=== PATIENT | female | born 1970 | race Caucasian/White ===

== ENCOUNTER 2017-08-20 16:53 | Inpatient (IN) | payer MEDICAID ==
[2017-08-20] VITALS (7 sets, daily range): BP systolic 90–106; BP diastolic 57–70; PULSE 108–122; RESP 15–20; TEMP 98–99.2; O2SAT 94–96
[~2017-08-20] VITALS: Ht 172.7 cm; Wt 56.9 kg
[~2017-08-20 16:53] MED LIST: PYRI200T4 PO; SULF1TAB47 PO
--- NOTE | 2017-08-20 17:45 | RADRPT ---
EXAM DATE/TIME: 08/20/2017 17:37 [facility] COMPARISON: No previous studies available for comparison. INDICATIONS : Palpitations. MEDICAL HISTORY : Abnormal EKG. SURGICAL HISTORY : None. ENCOUNTER: Initial ACUITY: 1 day PAIN SCORE: 06/20 LOCATION: Bilateral chest FINDINGS: There is patchy parenchymal opacity in the left mid lung as well as the right mid lung in the expecte d location of the lingula and right middle. Airspace disease is suspected. Heart size is normal. Ther e is hyperinflation. The osseous structures are intact. CONCLUSION: Lingular and right middle lobe airspace disease suspected. Daniel Rai MD on August 20, 2017 at 17:43 Board Certified Radiologist. This report was verified electronically.
[2017-08-20 18:17] LABS: AUTOMATED NEUTROPHIL # 12.8 TH/MM3 (1.8-7.7); BASOPHIL # 0.1 TH/MM3 (0-0.2); BASOPHIL % 0.4 % (0.0-2.0); EOSINOPHIL % 0.1 % (0.0-4.0); HEMATOCRIT 38.2 % (35.0-46.0); HEMOGLOBIN 13.3 GM/DL (11.6-15.3); LYMPH % 11.1 % (9.0-44.0); LYMPHOCYTE # 1.8 TH/MM3 (1.0-4.8); MEAN CELL VOLUME 102.8 FL (80.0-100.0); MEAN CORPUSCULAR HEMOGLOBIN 35.8 PG (27.0-34.0); MEAN CORPUSCULAR HGB CONC 34.8 % (32.0-36.0); MONO % 9.6 % (0.0-8.0); MONOCYTE # 1.6 TH/MM3 (0-0.9); NEUT % 78.8 % (16.0-70.0); PLATELET COUNT 209 TH/MM3 (150-450); RED BLOOD COUNT 3.71 MIL/MM3 (4.00-5.30); RED CELL DISTRIBUTION WIDTH 15.4 % (11.6-17.2); WHITE BLOOD COUNT 16.3 TH/MM3 (4.0-11.0)
[2017-08-20 18:26] LABS: INTERNATIONAL NORMALIZED RATIO 1.4 RATIO
[2017-08-20 19:13] LABS: BICARBONATE 27.6 MEQ/L (21.0-32.0); BLOOD UREA NITROGEN 2 MG/DL (7-18); CALCIUM 7.6 MG/DL (8.5-10.1); CHLORIDE 80 MEQ/L (98-107); CREATININE 0.81 MG/DL (0.50-1.00); GLOMERULAR FILTRATION RATE 76 ML/MIN (>89); GLUCOSE,RANDOM 159 MG/DL (74-106); MAGNESIUM 1.5 MG/DL (1.5-2.5); SODIUM (NA) 126 MEQ/L (136-145); TROPONIN I LESS THAN 0.02 NG/ML (0.02-0.05)
[2017-08-20] MEDS ORDERED: POTASSIUM CHLORIDE 20 MEQ CONTROLLED RELEASE TAB PO ONE (19:30)
[2017-08-20] MEDS ORDERED: POTASSIUM CHLOR 20 MEQ PREMIX 100 ML IV ONE (19:30)
[2017-08-20] MEDS ORDERED: ZOLO50TA PO (19:31)
[2017-08-20] MEDS ORDERED: SODIUM CHLOR 0.9% 1000 ML INJ 1,000 ML IV ONE ×2 (20:00)
--- NOTE | 2017-08-20 20:01 | PD ---
HPI Chief Complaint: Cardiac Complaint Time Seen by Provider: 19:30 Travel History International Travel<30 days: No Contact w/Intl Traveler<30days: No Traveled to known affect area: No History of Present Illness HPI 47yo F with PMH of alcohol abuse was sent here by [facility] after EKG was done as per triage note. The officer said she was dropped off by her boyfriend and she didnt want to come here. Said he dropped her off and sped off in a car. Pt is AAOx2. She said she went to [facility] for routine check up. Pt does have diarrhea for 2 weeks and said she had a virus. Denies any complaints including fever, chest pain, sob, n/v, abdominal pain, focal weakness or numbness. Denies any fall or head trauma. Pt denies drinking alcohol or drug use. PFSH Past Medical History Asthma: Yes Anxiety: Yes Heart Rhythm Problems: Yes (INCREASED HEART RATE) Diminished Hearing: No Hypertension: Yes Immunizations Current: Yes Thyroid Disease: Yes Tetanus Vaccination: Unknown Influenza Vaccination: No ?: Not Para: 1 Past Surgical History Surgical History: No Previous Surgery Social History Alcohol Use: Yes (PT IS AN ALCOHOLIC) Tobacco Use: Yes (1-1 06/12 PPD) Substance Use: Yes Allergies-Medications (Allergen,Severity, Reaction): Coded Allergies: No Known Allergies (Verified Allergy, Unknown, 08/20/17) Reported Meds & Prescriptions Reported Meds & Active Scripts Active Reported Zoloft (Sertraline HCl) 50 Mg Tab 50 Mg PO DAILY Review of Systems Except as stated in HPI: all other systems reviewed are Neg Physical Exam Narrative GENERAL: 47yo F not in distress. SKIN: Focused skin assessment warm/dry. HEAD: Atraumatic. Normocephalic. EYES: Pupils equal and round. No scleral icterus. No injection or drainage. ENT: No nasal bleeding or discharge. Mucous membranes pink and moist. NECK: Trachea midline. No JVD. CARDIOVASCULAR: Regular rate and rhythm. No murmur appreciated. RESPIRATORY: No accessory muscle use. Clear to auscultation. Breath sounds equal bilaterally. GASTROINTESTINAL: Abdomen soft, non-tender, nondistended. MUSCULOSKELETAL: No obvious deformities. No clubbing. No cyanosis. No edema. NEUROLOGICAL: AAOx2. CNII-XII grossly intact. Muscle strength 5/5 in all extremities. Sensation intact. Data Data Last Documented VS Vital Signs Date Time Temp Pulse Resp B/P (MAP) Pulse Ox O2 Delivery O2 Flow Rate FiO2 08/20/17 20:30 110 18 97/57 (70) 96 Room Air 08/20/17 19:34 98.0 Orders Orders Electrocardiogram (08/20/17 17:28) Basic Metabolic Panel (Bmp) (08/20/17 17:28) Ckmb (Isoenzyme) Profile (08/20/17 17:28) Complete Blood Count With Diff (08/20/17 17:28) Magnesium (Mg) (08/20/17 17:28) Prothrombin Time / Inr (Pt) (08/20/17:28) Act Partial Throm Time (Ptt) (08/20/17:28) Troponin I (08/20/17 17:28) Chest, Pa & Lat (08/20/17 17:28) CKMB (08/20/17 17:55) CKMB% (08/20/17 17:55) Potassium Chloride (Kcl) (08/20/17 19:30) Potassium Chlor 20 Meq Premix (Kcl 20 Me (08/20/17 19:30) Blood Culture (08/20/17 19:53) Lactic Acid Sepsis Protocol (08/20/17 19:53) Sodium Chlor 0.9% 1000 Ml Inj (Ns 1000 M (08/20/17 20:00) Sodium Chlor 0.9% 1000 Ml Inj (Ns 1000 M (08/20/17 20:00) Thiamine Inj (Thiamine Inj) (08/20/17 20:15) Urinalysis - C+S If Indicated (08/20/17 20:12) Magnesium Sulfate 1 Gm Premix (Magnesium (08/20/17 20:15) Alcohol (Ethanol) (08/20/17 17:55) Admit To Inpatient (08/20/17 ) Vital Signs (Adult) Q4H (08/20/17 20:29) Activity Oob With Assistance (08/20/17 20:29) Shorthand Teacher / Telemetry .CONTINUOUS (08/20/17 20:29) Diet Heart Healthy (08/21/17 Breakfast) Sodium Chloride 0.9% Flush (Ns Flush) (08/20/17 20:30) Sodium Chloride 0.9% Flush (Ns Flush) (08/20/17 21:00) Complete Blood Count With Diff (08/21/17 06:00) Case Management Consult (08/20/17 20:29) Naloxone Inj (Narcan Inj) (08/20/17 20:30) Inpatient Certification (08/20/17 ) Magnesium Sulfate 1 Gm Premix (Magnesium (08/20/17 20:30) Potassium, Serum (K) (08/20/17 23:00) Potassium, Serum (K) (08/21/17 03:00) Potassium, Serum (K) (08/21/17 11:00) Magnesium (Mg) (08/20/17 23:00) Magnesium (Mg) (08/21/17 03:00) Magnesium (Mg) (08/21/17 07:00) Magnesium (Mg) (08/21/17 11:00) Flumazenil Inj (Romazicon Inj) (08/20/17 20:30) Lorazepam (Ativan) (08/20/17 20:30) Lorazepam Inj (Ativan Inj) (08/20/17 20:30) Lorazepam (Ativan) (08/20/17 20:30) Lorazepam Inj (Ativan Inj) (08/20/17 20:30) Lorazepam Inj (Ativan Inj) (08/20/17 20:30) Lorazepam Inj (Ativan Inj) (08/20/17 20:30) Admit Order (Ed Use Only) (08/20/17 20:34) Labs Laboratory Tests Test 08/20/17 17:55 08/20/17 20:10 White Blood Count 16.3 TH/MM3 Red Blood Count 3.71 MIL/MM3 Hemoglobin 13.3 GM/DL Hematocrit 38.2 % Mean Corpuscular Volume 102.8 FL Mean Corpuscular Hemoglobin 35.8 PG Mean Corpuscular Hemoglobin Concent 34.8 % Red Cell Distribution Width 15.4 % Platelet Count 209 TH/MM3 Mean Platelet Volume 8.0 FL Neutrophils (%) (Auto) 78.8 % Lymphocytes (%) (Auto) 11.1 % Monocytes (%) (Auto) 9.6 % Eosinophils (%) (Auto) 0.1 % Basophils (%) (Auto) 0.4 % Neutrophils # (Auto) 12.8 TH/MM3 Lymphocytes # (Auto) 1.8 TH/MM3 Monocytes # (Auto) 1.6 TH/MM3 Eosinophils # (Auto) 0.0 TH/MM3 Basophils # (Auto) 0.1 TH/MM3 CBC Comment DIFF FINAL Differential Comment Prothrombin Time 14.0 SEC Prothromb Time International Ratio 1.4 RATIO Activated Partial Thromboplast Time 30.8 SEC Blood Urea Nitrogen 2 MG/DL Creatinine 0.81 MG/DL Random Glucose 159 MG/DL Calcium Level 7.6 MG/DL Magnesium Level 1.5 MG/DL Sodium Level 126 MEQ/L Potassium Level 1.9 MEQ/L Chloride Level 80 MEQ/L Carbon Dioxide Level 27.6 MEQ/L Anion Gap 18 MEQ/L Estimat Glomerular Filtration Rate 76 ML/MIN Total Creatine Kinase 103 U/L Creatine Kinase MB 0.9 NG/ML Troponin I LESS THAN 0.02 NG/ML Ethyl Alcohol Level 285 MG/DL Lactic Acid Level 7.8 mmol/L MDM Medical Decision Making Medical Screen Exam Complete: Yes Emergency Medical Condition: Yes Interpretation(s) EKG: Sinus tachycardia at 112bopm. Normal axis. No significant ST segment elevation. Differential Diagnosis Electrolyte abnormality vs. dehydration vs. sepsis Narrative Course 47yo F was sent from [facility] after EKG was done. Pt denies any complaints. Pt is AAOx2, follows commands and answers questions. Pt has no signs of trauma and denies any fall. Labs were drawn at triage and resulted by the time she got to medical bed where I saw her. Labs reviewed, leukocytosis at 16.3. H/H normal. Severe hypokalemia at 1.9. Pt given 80mEq KCl PO and 20mEq KCl IV. Hyponatremic at 126. Pt is mildly tachycardic at 115bpm when I saw her. NS IVF x2 ordered. Magnesium is low normal at 1.5 and given severe hypokalemia, will give magnesium as well. Troponin negative. Anion gap of 18 likely secondary to hypochloremia at 80. Pt given thiamine. Discussed with Dr. Jaquez and accepted to her service. Lactic acid elevated at 7.8. Pt given NS IVF x2. She does have leukocytosis and tachycardia, although can be from dehydration and other causes. Empirically cover with vancomycin and zosyn. Do not have a source of infection. UA negative. Blood alcohol is 285. Critical Care Narrative Aggregate critical care time was 40 minutes. Time to perform other separately billable procedures was not included in the critical care time. My time did not include minutes spent treating any other patients simultaneously or on activities that did not directly contribute to the patient's treatment. The services I provided to this patient were to treat and/or prevent clinically significant deterioration that could result in: cardiovascular collapse or . I provided critical care services requiring my management, as noted below: Chart data review, documentation time, medication orders and management, vital sign assessments/reviewing monitor data, ordering and reviewing lab tests, ordering and interpreting/reviewing x-rays and diagnostic studies, care of the patient and discussion of the patient with the admitting physicians. Diagnosis Primary Impression: Hypokalemia Additional Impression: Hyponatremia Admitting Information Admitting Physician Requests: Jackie Mendiola DO Aug 20, 2017 20:01
[2017-08-20] MEDS ORDERED: MAGNESIUM SULFATE 1 GM PREMIX 100 ML IV ONE (20:15)
[2017-08-20] MEDS ORDERED: THIAMINE INJ 100 MG in SODIUM CHLORIDE 0.9% INJ 100 ML IV ONE (20:15)
[2017-08-20] MEDS ORDERED: FLUMAZENIL 0.5 MG/5 ML VIAL IV PUSH PRN (20:30)
[2017-08-20] MEDS ORDERED: NALOXONE HCL 0.4 MG/ML AMP IV PUSH PRN (20:30)
[2017-08-20 21:00] LABS: LACTIC ACID SEPSIS PROTOCOL 7.8 mmol/L (0.4-2.0)
[2017-08-20] MEDS ORDERED: VANCOMYCIN INJ 800 MG in SODIUM CHLOR 0.9% 250 ML INJ 250 ML IV ONE (21:00)
[2017-08-20] MEDS ORDERED: PIPERACIL-TAZO 3.375 GM PREMIX 50 ML IV ONE (21:00)
--- NOTE | 2017-08-20 21:28 | HHI.HP ---
[facility] Unknown Admission Diagnosis Severe hypokalemia, hyponatremia Diagnoses: Chief Complaint: diarrhea Travel History International Travel<30 Days: No Contact w/Intl Traveler <30 Da: No Traveled to Known Affected Are: No History of Present Illness 47 y/o depression and alcohol abuse was sent to the ED by her PCP at [facility] for tachycardia and was dropped off by her boyfriend. Patient is alert and oriented to self and place but does not know the year. She states she has been having Diarrhea 10-20 times day, foul smelling, and no recent use of antibiotics, and with associated cramping for the past 2 weeks. Prior to that she did have the flu. Patient admits to drinking alcohol every day but will not state how much she drinks. She states she has been trying to drink ensure and Gatorade but does not eat much. She denies any associated chest pain , sob, fevers or chills. Denies any heart palpitations. Discussed with patient's brother who is at the bedside, and is concerned. He states she drinks several 24oz beers and fireball daily, and does not eat well. She currently lives with her boyfriend. Review of Systems Except as stated in HPI: all other systems reviewed are Neg Past Family Social History Past Medical History Depression Past Surgical History no surgical history Reported Medications Reported Meds & Active Scripts Active Reported Zoloft (Sertraline HCl) 50 Mg Tab 50 Mg PO DAILY Allergies: Coded Allergies: No Known Allergies (Verified Allergy, Unknown, 08/20/17) Active Ordered Medications Current Medications Medications (Trade) Dose Ordered Sig/Artis Route Start Time Stop Time Status Last Admin (NS Flush) 2 ml UNSCH PRN IV FLUSH 08/20/17 20:30 (NS Flush) 2 ml BID IV FLUSH 08/20/17 21:00 08/20/17 21:43 (Narcan Inj) 0.4 mg UNSCH PRN IV PUSH 08/20/17 20:30 (Romazicon Inj) 0.2 mg Q1M PRN IV PUSH 08/20/17 20:30 (Ativan) 1 mg Q4H PRN PO 08/20/17 20:30 08/20/17 23:57 (Ativan Inj) 1 mg Q4H PRN IV PUSH 08/20/17 20:30 (Ativan) 2 mg Q2H PRN PO 08/20/17 20:30 (Ativan Inj) 2 mg Q2H PRN IV PUSH 08/20/17 20:30 (Ativan Inj) 2 mg Q1H PRN IV PUSH 08/20/17 20:30 (Ativan Inj) 2 mg Q15M PRN IV PUSH 08/20/17 20:30 Piperacillin Sod/ Tazobactam Sod 50 ml @ 100 mls/hr Q6H IV 08/21/17 04:00 UNV Family History Patient states she does not know her family history. Social History Tobacco use: 1/2 PPD Alcohol use: Beer and fireball daily Illicit drug use: Denies Physical Exam Vital Signs Vital Signs Date Time Temp Pulse Resp B/P (MAP) Pulse Ox O2 Delivery O2 Flow Rate FiO2 08/20/17 19:34 98.0 115 20 103/65 (78) 96 Room Air 08/20/17 17:25 99.2 122 18 98/69 (79) 95 Physical Exam GENERAL: This is a well-nourished, well-developed patient, in no apparent distress. SKIN: No rashes, ecchymoses or lesions. Cool and dry. HEAD: Atraumatic. Normocephalic. EYES: Pupils equal round and reactive. ENT: Nose without bleeding, purulent drainage or septal hematoma.. Airway patent. NECK: Trachea midline. No JVD or lymphadenopathy. CARDIOVASCULAR: Tachycardic rate and rhythm without murmurs, gallops, or rubs. RESPIRATORY: Clear to auscultation. Breath sounds equal bilaterally. No wheezes , rales, or rhonchi. GASTROINTESTINAL: Abdomen soft, non-tender, nondistended. MUSCULOSKELETAL: Extremities without clubbing, cyanosis, or edema. No calf tenderness. NEUROLOGICAL: Awake and alert x2. Motor and sensory grossly within normal limits. Five out of 5 muscle strength in all muscle groups. Normal speech. Laboratory Laboratory Tests Test 08/20/17 17:55 08/20/17 20:10 08/20/17 21:00 White Blood Count 16.3 Red Blood Count 3.71 Hemoglobin 13.3 Hematocrit 38.2 Mean Corpuscular Volume 102.8 Mean Corpuscular Hemoglobin 35.8 Mean Corpuscular Hemoglobin Concent 34.8 Red Cell Distribution Width 15.4 Platelet Count 209 Mean Platelet Volume 8.0 Neutrophils (%) (Auto) 78.8 Lymphocytes (%) (Auto) 11.1 Monocytes (%) (Auto) 9.6 Eosinophils (%) (Auto) 0.1 Basophils (%) (Auto) 0.4 Neutrophils # (Auto) 12.8 Lymphocytes # (Auto) 1.8 Monocytes # (Auto) 1.6 Eosinophils # (Auto) 0.0 Basophils # (Auto) 0.1 CBC Comment DIFF FINAL Differential Comment Prothrombin Time 14.0 Prothromb Time International Ratio 1.4 Activated Partial Thromboplast Time 30.8 Blood Urea Nitrogen 2 Creatinine 0.81 Random Glucose 159 Calcium Level 7.6 Magnesium Level 1.5 Sodium Level 126 Potassium Level 1.9 Chloride Level 80 Carbon Dioxide Level 27.6 Anion Gap 18 Estimat Glomerular Filtration Rate 76 Total Creatine Kinase 103 Creatine Kinase MB 0.9 Troponin I LESS THAN 0.02 Ethyl Alcohol Level 285 Lactic Acid Level 7.8 Date/Time Source Procedure Growth Status 08/20/17 20:00 Blood Peripheral Aerobic Blood Culture Pending Received 08/20/17 20:00 Blood Peripheral Anaerobic Blood Culture Pending Received Result Diagram: 08/20/17175408/20/17 1755 Imaging Last Impressions Chest X-Ray 08/20/17 1728 Signed Impressions: Service Date/Time: Sunday, August 20, 2017 17:37 - CONCLUSION: Lingular and right middle lobe airspace disease suspected. MD Jair Mejiasi VTE Risk Assessment Caprini VTE Risk Assessment: No/Low Risk (score <= 1) Caprini Risk Assessment Model Point Value = 1 Point Value = 2 Point Value = 3 Point Value = 5 Age 41-60 Minor surgery BMI > 25 kg/m2 Swollen legs Varicose veins or History of unexplained or recurrent spontaneous Oral contraceptives or hormone replacement Sepsis (< 1 month) Serious lung disease, including pneumonia (< 1 month) Abnormal pulmonary function Acute myocardial infarction Congestive heart failure (< 1 month) History of inflammatory bowel disease Medical patient at bed rest Age 61-74 Arthroscopic surgery Major open surgery (> 45 min) Laparoscopic surgery (> 45 min) Malignancy Confined to bed (> 72 hours) Immobilizing plaster cast Central venous access Age >= 75 History of VTE Family history of VTE Factor V Leiden Prothrombin [id number] Lupus anticoagulant Anticardiolipin antibodies Elevated serum homocysteine Heparin-induced thrombocytopenia Other congenital or acquired thrombophilia Stroke (< 1 month) Elective arthroplasty Hip, pelvis, or leg fracture Acute spinal cord injury (< 1 month) Prophylaxis Regimen Total Risk Factor Score Risk Level Prophylaxis Regimen 0-1 Low Early ambulation 2 Moderate Order ONE of the following: *Sequential Compression Device (SCD) *Heparin 5000 units SQ BID 3-4 Higher Order ONE of the following medications: *Heparin 5000 units SQ TID *Enoxaparin/Lovenox 40 mg SQ daily (WT < 150 kg, CrCl > 30 mL/min) *Enoxaparin/Lovenox 30 mg SQ daily (WT < 150 kg, CrCl > 10-29 mL/min) *Enoxaparin/Lovenox 30 mg SQ BID (WT < 150 kg, CrCl > 30 mL/min) AND/OR *Sequential Compression Device (SCD) 5 or more Highest Order ONE of the following medications: *Heparin 5000 units SQ TID (Preferred with Epidurals) *Enoxaparin/Lovenox 40 mg SQ daily (WT < 150 kg, CrCl > 30 mL/min) *Enoxaparin/Lovenox 30 mg SQ daily (WT < 150 kg, CrCl > 10-29 mL/min) *Enoxaparin/Lovenox 30 mg SQ BID (WT < 150 kg, CrCl > 30 mL/min) AND *Sequential Compression Device (SCD) Assessment and Plan Problem List: (1) Leukocytosis ICD Code: D72.829 - Elevated white blood cell count, unspecified Status: Acute (2) Diarrhea ICD Code: R19.7 - Diarrhea, unspecified Status: Acute (3) Hypokalemia ICD Code: E87.6 - Hypokalemia Status: Acute (4) Hyponatremia ICD Code: E87.1 - Hypo-osmolality and hyponatremia Status: Acute Assessment and Plan 47 y/o depression and alcohol abuse was sent to the ED by her PCP at [facility] for tachycardia and was dropped off by her boyfriend, patient found to have diarrhea and tachycardia. Leukocytosis, suspect related to diarrhea WBC 16.3, UA negative -Zosyn IV empirically -CBC in a.m. -Blood cultures pending -Follow stool cultures Diarrhea, suspect infectious -Stool studies ordered -Continue IV antibiotics as above Hypokalemia/hyponatremia likely related to diarrhea Potassium 1.9, sodium 126 -Supplementation ordered, trend electrolytes Q4h, replace as needed Tachycardia likely related to dehydration EKG shows sinus tachycardia -Monitor telemetry Lactic acidosis suspect due to dehydration Lactic acid 7.8 -NS bolus 2 given in ED -Repeat lactic acid 6.3 continue IVF NS 20meq K @ 100ml/hr -Lactic acid in a.m. EtOH abuse -CIWA protocol -Seizure precautions -Encouraged to quit DVT prophylaxis: SCDs Discussed Condition With Patient and ED physician Physician Certification 2 Midnight Certification Type: Admission for Inpatient Services Order for Inpatient Services The services are ordered in accordance with Medicare regulations or non- Medicare payer requirements, as applicable. In the case of services not specified as inpatient-only, they are appropriately provided as inpatient services in accordance with the 2-midnight benchmark. Estimated LOS (days): 2 days is the estimated time the patient will need to remain in the hospital, assuming treatment plan goals are met and no additional complications. Post-Hospital Plan: Home Problem Qualifiers (1) Leukocytosis: Qualified Codes: D72.829 - Elevated white blood cell count, unspecified (2) Diarrhea: Qualified Codes: R19.7 - Diarrhea, unspecified Aditi Alonzo Aug 20, 2017 21:28
[2017-08-20 21:38] LABS: BILIRUBIN, URINE NEG (NEG); BLOOD, URINE NEG (NEG); GLUCOSE,URINE NEG (NEG); KETONE, URINE NEG (NEG); NITRITE,URINE NEG (NEG); SQUAMOUS EPITHELIAL CELL URINE 6 /hpf (0-5); URINE COLOR YELLOW (YELLW/STRAW); URINE LEUKOCYTE ESTERASE NEG (NEG)
[2017-08-20] MEDS: MAGNESIUM SULFATE 1 GM PREMIX 100 ML IV SCH ×2 (21:43→23:21)
[2017-08-20] MEDS: SODIUM CHLORIDE 0.9% FLUSH 10 ML FLUSH IV FLUSH SCH (21:43)
[2017-08-20 23:06] LABS: MAGNESIUM 1.8 MG/DL (1.5-2.5)
[2017-08-20] MEDS: LORazepam 1 MG TAB PO PRN (23:57)
[2017-08-21] VITALS (14 sets, daily range): BP systolic 95–145; BP diastolic 55–88; PULSE 95–120; RESP 12–20; TEMP 99.2–100.5; O2SAT 90–99
[2017-08-21] MEDS ORDERED: NS + KCL 20 MEQ INJ 1,000 ML IV SCH (00:45)
[2017-08-21] MEDS ORDERED: PIPERACIL-TAZO 3.375 GM PREMIX 50 ML IV SCH (04:00)
[2017-08-21 04:22] LABS: MAGNESIUM 2.2 MG/DL (1.5-2.5)
[2017-08-21] MEDS ORDERED: POTASSIUM CHLOR 20 MEQ PREMIX 100 ML IV SCH (05:00)
[2017-08-21] MEDS ORDERED: POTASSIUM CHLORIDE 20 MEQ CONTROLLED RELEASE TAB PO ONE (05:00)
[2017-08-21] MEDS ORDERED: DIATRIZOATE MEGLUM/DIATRIZOATE SOD 9 ML CUP PO ONE (05:30)
[2017-08-21] MEDS ORDERED: IOHEXOL 350 MG/ML 10 ML VIAL (for RAD DIAG) IVCONTRAST ONE (07:00)
--- NOTE | 2017-08-21 07:26 | RADRPT ---
EXAM DATE/TIME: 08/21/2017 06:57 [facility] COMPARISON: No previous studies available for comparison. INDICATIONS : Abdominal pain X 2 weeks with diarrhea. IV CONTRAST: 85 cc Omnipaque 350 (iohexol) IV ORAL CONTRAST: Prescribed oral contrast ingested. RADIATION DOSE: 4.53 CTDIvol (mGy) MEDICAL HISTORY : Hypertension. Asthma, Substance abuse SURGICAL HISTORY : None. ENCOUNTER: Initial ACUITY: 2 weeks PAIN SCALE: 6/10 LOCATION: abdomen TECHNIQUE: Volumetric scanning of the abdomen and pelvis was performed. Using automated exposure control and ad justment of the mA and/or kV according to patient size, radiation dose was kept as low as reasonably achievable to obtain optimal diagnostic quality images. DICOM format image data is available electro nically for review and comparison. FINDINGS: CT Abdomen: The spleen, pancreas, kidneys, adrenals are unremarkable. The liver is fatty without foca l lesions or technique. There is airspace consolidation right middle lobe with infiltrate right lower lobe and lingula characteristic of pneumonia. There may be gallstones within the gallbladder. There is slight thickening of the wall of the colon particularly the transverse colon and possibility of co litis is not excluded. The region of the andThere is no evidence for any appreciable pathological tavia nopathy, free fluid, or bowel obstruction. CT pelvis: There is no evidence for mass, abscess formation, or any significant adenopathy within the pelvis. CONCLUSION: 1. Right middle lobe pneumonia with infiltrates right lower lobe and lingula as well. 2. Thickening of the transverse colon wall could be technical, however colitis is not excluded. Fernando Euceda MD on August 21, 2017 at 7:20 Board Certified Radiologist. This report was verified electronically.
--- NOTE | 2017-08-21 08:37 | PD.CONS ---
HPI History of Present Illness This is a 47 year old female with hx etoh abuse who presented to the ER referred by PCP for tachycardia and diarrhea. For the last 2 weeks she has had watery diarrhea 20 times daily. She had flu and then a couple days later the diarrhea started. She denies taking antibiotics. Denies new medications. She admits intermittent epigastric pain and lower abd cramping. The cramping is associated with BM. Denies n/v, fever, any similar prior episodes. No blood in stool or black tarry stool. She admits drinking etoh but won't say how much. Per EMR she drinks several large beers and fireball. Never had EGD or colonoscopy. (Camilla Vega) PFSH Past Medical History Depression Past Surgical History no surgical history (Camilla Vega) Coded Allergies: No Known Allergies (Verified Allergy, Unknown, 08/20/17) Family History Patient states she does not know her family history. Social History Tobacco use: 1/2 PPD Alcohol use: Beer and fireball daily Illicit drug use: Denies (Camilla Vega) Review of Systems Constitutional: DENIES: Fever Endocrine: DENIES: Polydipsia Eyes: DENIES: Blurred vision Ears, nose, mouth, throat: DENIES: Hearing loss Respiratory: DENIES: Cough Cardiovascular: DENIES: Chest pain Gastrointestinal: COMPLAINS OF: Abdominal pain, Diarrhea, Anorexia, DENIES: Nausea, Vomiting, Hematemesis Genitourinary: DENIES: Urinary incontinence Musculoskeletal: DENIES: Muscle aches Integumentary: DENIES: Jaundice Hematologic/lymphatic: DENIES: Bruising Immunologic/allergic: DENIES: Eczema Neurologic: DENIES: Abnormal gait Psychiatric: DENIES: Confusion (Camilla Vega) GI Exam Vitals I&O Vital Signs Date Time Temp Pulse Resp B/P (MAP) Pulse Ox O2 Delivery O2 Flow Rate FiO2 08/21/17 05:30 112 20 145/86 (105) 95 Nasal Cannula 2.00 08/21/17 04:00 118 18 125/69 (87) 90 Nasal Cannula 2.00 08/21/17 03:00 116 20 95/66 (76) 92 Room Air 08/21/17 02:00 116 20 101/71 (81) 95 Room Air 08/20/17 23:46 110 18 102/66 (78) 94 Room Air 08/20/17 22:00 108 15 90/61 (71) 94 Room Air 08/20/17 21:30 110 15 95/68 (77) 96 Room Air 08/20/17 21:00 108 17 106/70 (82) 96 Room Air 08/20/17 20:30 110 18 97/57 (70) 96 Room Air 08/20/17 19:34 98.0 115 20 103/65 (78) 96 Room Air 08/20/17 17:25 99.2 122 18 98/69 (79) 95 I/O 08/20/17 08/20/17 08/20/17 08/21/17 08/21/17 08/21/17 07:00 15:00 23:00 07:00 15:00 23:00 Intake Total 2451 ml 408 ml Balance 2451 ml 408 ml Intake IV Total 2451 ml 408 ml Imaging Last Impressions Abdomen/Pelvis CT 08/21/17 0000 Signed Impressions: Service Date/Time: Monday, August 21, 2017 06:57 - CONCLUSION: 1. Right middle lobe pneumonia with infiltrates right lower lobe and lingula as well. 2. Thickening of the transverse colon wall could be technical, however colitis is not excluded. Fernando Euceda MD Chest X-Ray 08/20/17 1728 Signed Impressions: Service Date/Time: Sunday, August 20, 2017 17:37 - CONCLUSION: Lingular and right middle lobe airspace disease suspected. Daniel Rai MD Laboratory Test 08/20/17 17:55 08/20/17 20:10 08/20/17 21:00 08/20/17 21:45 White Blood Count 16.3 TH/MM3 Red Blood Count 3.71 MIL/MM3 Hemoglobin 13.3 GM/DL Hematocrit 38.2 % Mean Corpuscular Volume 102.8 FL Mean Corpuscular Hemoglobin 35.8 PG Mean Corpuscular Hemoglobin Concent 34.8 % Red Cell Distribution Width 15.4 % Platelet Count 209 TH/MM3 Mean Platelet Volume 8.0 FL Neutrophils (%) (Auto) 78.8 % Lymphocytes (%) (Auto) 11.1 % Monocytes (%) (Auto) 9.6 % Eosinophils (%) (Auto) 0.1 % Basophils (%) (Auto) 0.4 % Neutrophils # (Auto) 12.8 TH/MM3 Lymphocytes # (Auto) 1.8 TH/MM3 Monocytes # (Auto) 1.6 TH/MM3 Eosinophils # (Auto) 0.0 TH/MM3 Basophils # (Auto) 0.1 TH/MM3 CBC Comment DIFF FINAL Differential Comment Prothrombin Time 14.0 SEC Prothromb Time International Ratio 1.4 RATIO Activated Partial Thromboplast Time 30.8 SEC Blood Urea Nitrogen 2 MG/DL Creatinine 0.81 MG/DL Random Glucose 159 MG/DL Calcium Level 7.6 MG/DL Magnesium Level 1.5 MG/DL 1.8 MG/DL Sodium Level 126 MEQ/L Potassium Level 1.9 MEQ/L 4.0 MEQ/L Chloride Level 80 MEQ/L Carbon Dioxide Level 27.6 MEQ/L Anion Gap 18 MEQ/L Estimat Glomerular Filtration Rate 76 ML/MIN Total Creatine Kinase 103 U/L Creatine Kinase MB 0.9 NG/ML Troponin I LESS THAN 0.02 NG/ML Ethyl Alcohol Level 285 MG/DL Lactic Acid Level 7.8 mmol/L Urine Color YELLOW Urine Turbidity CLEAR Urine pH 6.0 Urine Specific Wilson 1.007 Urine Protein NEG mg/dL Urine Glucose (UA) NEG mg/dL Urine Ketones NEG mg/dL Urine Occult Blood NEG Urine Nitrite NEG Urine Bilirubin NEG Urine Urobilinogen LESS THAN 2.0 MG/DL Urine Leukocyte Esterase NEG Urine WBC 2 /hpf Urine Squamous Epithelial Cells 6 /hpf Microscopic Urinalysis Comment CULT NOT INDICATED Test 08/20/17 23:05 08/21/17 03:14 08/21/17 07:45 Lactic Acid Level 6.7 mmol/L Potassium Level 2.7 MEQ/L Magnesium Level 2.2 MG/DL Date/Time Source Procedure Growth Status 08/20/17 20:00 Blood Peripheral Aerobic Blood Culture Pending Received 08/20/17 20:00 Blood Peripheral Anaerobic Blood Culture Pending Received Physical Examination HEENT: PERRL; normocephalic; atraumatic; no jaundice. CHEST: CTA CARDIAC: tachycardic ABDOMEN: Soft, nondistended, nontender; hepatomegaly; bowel sounds are present in all four quadrants. bright yellow watery clear stool visualized in commode EXTREMITIES: No clubbing, cyanosis, or edema. SKIN: spider angiomas [employer] J[employer]: mildly tremulous (Camilla Vega S [employer]) Assessment and Plan Plan ASSESSMENT - diarrhea - 2 weeks of watery nearly neon yellow, yellow staining stool. intermittent lower abd cramping, intermittent epigastric pain. limited hx. never had EGD or colonoscopy. CT showed fatty liver, PNA, poss transverse colitis initially refused colonoscopy and now agrees - coagulopathy - INR 1.4 suspect some degree of liver dz. has spider angiomas , liver feels enlarged - leukocytosis - could be 2/2 diarrhea. stool cx pending. afebrile PLAN - colonoscopy - clear liquids today - NPO after midnight - 1 bottle mg citrate, can give 1/2 or hold depending on if she is still having the clear yellow stool - await hepatitis panel - LFTs - await c diff and stool studies - stool collection bag - d/w primary - further recs as case unfolds pt seen by myself and Dr Vega and this note is on his behalf (Camilla Vega) Physician Comments Seen and examined, plan as above. Colonoscopy once stabilized and electrolyes imbalance corrected. Thank you for the consult. (Roselia Vega MD) Camilla Vega Aug 21, 2017 08:37 Roselia Vega MD Aug 21, 2017 11:28
[2017-08-21] MEDS ORDERED: MAGNESIUM CITRATE SOLN 300 ML BTL PO ONE (09:15)
[2017-08-21 09:29] LABS: AUTOMATED NEUTROPHIL # 11.8 TH/MM3 (1.8-7.7); BASOPHIL % 0.3 % (0.0-2.0); HEMATOCRIT 33.8 % (35.0-46.0); LYMPH % 4.7 % (9.0-44.0); LYMPHOCYTE # 0.6 TH/MM3 (1.0-4.8); MEAN CELL VOLUME 104.2 FL (80.0-100.0); MEAN CORPUSCULAR HGB CONC 35.5 % (32.0-36.0); MEAN PLATELET VOLUME 8.3 FL (7.0-11.0); MONO % 5.7 % (0.0-8.0); MONOCYTE # 0.8 TH/MM3 (0-0.9); NEUT % 89.3 % (16.0-70.0); PLATELET COUNT 175 TH/MM3 (150-450); RED BLOOD COUNT 3.25 MIL/MM3 (4.00-5.30); RED CELL DISTRIBUTION WIDTH 15.5 % (11.6-17.2); WHITE BLOOD COUNT 13.3 TH/MM3 (4.0-11.0)
[2017-08-21] MEDS ORDERED: NS + KCL 40 MEQ INJ 1,000 ML IV SCH (10:00)
[2017-08-21] MEDS ORDERED: ALPRAZolam 0.25 MG TAB PO ONE (10:00)
[2017-08-21] MEDS ORDERED: Vancomycin Consult Pharmacy 1 EA OTHER SCH (10:00)
[2017-08-21] MEDS ORDERED: POTASSIUM CHLORIDE 25 MEQ EFFERVESCENT TAB PO ONE (10:00)
[2017-08-21] MEDS ORDERED: VANCOMYCIN 25 MG/ML SOLN 100 ML BOTTLE PO SCH (10:00)
--- NOTE | 2017-08-21 10:09 | HHI.PR ---
Subjective Remarks The patient was resting comfortably in bed. She stated that she did not want a colonoscopy but would be willing to do so if necessary. She says her diarrhea follows a viral illness. She has some abdominal pain. She requests something for anxiety. Discussed with nursing. Objective Vitals Vital Signs Date Time Temp Pulse Resp B/P (MAP) Pulse Ox O2 Delivery O2 Flow Rate FiO2 08/21/17 08:30 99.2 117 15 122/55 (77) 98 Nasal Cannula 2.00 08/21/17 07:15 120 16 104/88 (93) 99 Nasal Cannula 2.00 08/21/17 05:30 112 20 145/86 (105) 95 Nasal Cannula 2.00 08/21/17 04:00 118 18 125/69 (87) 90 Nasal Cannula 2.00 08/21/17 03:00 116 20 95/66 (76) 92 Room Air 08/21/17 02:00 116 20 101/71 (81) 95 Room Air 08/20/17 23:46 110 18 102/66 (78) 94 Room Air 08/20/17 22:00 108 15 90/61 (71) 94 Room Air 08/20/17 21:30 110 15 95/68 (77) 96 Room Air 08/20/17 21:00 108 17 106/70 (82) 96 Room Air 08/20/17 20:30 110 18 97/57 (70) 96 Room Air 08/20/17 19:34 98.0 115 20 103/65 (78) 96 Room Air 08/20/17 17:25 99.2 122 18 98/69 (79) 95 I/O 08/20/17 08/20/17 08/20/17 08/21/17 08/21/17 08/21/17 07:00 15:00 23:00 07:00 15:00 23:00 Intake Total 2451 ml 408 ml Balance 2451 ml 408 ml Intake IV Total 2451 ml 408 ml Result Diagram: 08/21/17 0900 08/21/17 0314 Imaging Last Impressions Abdomen/Pelvis CT 08/21/17 0000 Signed Impressions: Service Date/Time: Monday, August 21, 2017 06:57 - CONCLUSION: 1. Right middle lobe pneumonia with infiltrates right lower lobe and lingula as well. 2. Thickening of the transverse colon wall could be technical, however colitis is not excluded. K. Alphonse Shamlou, MD Chest X-Ray 08/20/17 5191 Signed Impressions: Service Date/Time: Sunday, August 20, 2017 17:37 - CONCLUSION: Lingular and right middle lobe airspace disease suspected. Daniel Rai MD Objective Remarks GENERAL: No apparent distress. SKIN: No rashes, ecchymoses or lesions. Cool and dry. HEAD: Atraumatic. Normocephalic. EYES: Pupils equal round and reactive. ENT: Nose without bleeding, purulent drainage or septal hematoma.. Airway patent. NECK: Trachea midline. No JVD or lymphadenopathy. CARDIOVASCULAR: Tachycardic without murmurs, gallops or rubs. RESPIRATORY: Clear to auscultation. Breath sounds equal bilaterally. No wheezes , rales, or rhonchi. GASTROINTESTINAL: Abdomen soft, non-tender, nondistended. Hyperactive bowel sounds. MUSCULOSKELETAL: Extremities without clubbing, cyanosis, or edema. NEUROLOGICAL: Awake and alert. Motor and sensory grossly within normal limits. Five out of 5 muscle strength in all muscle groups. Normal speech. Medications and IVs Current Medications Medications (Trade) Dose Ordered Sig/Artis Route Start Time Stop Time Status Last Admin (NS Flush) 2 ml UNSCH PRN IV FLUSH 08/20/17 20:30 (NS Flush) 2 ml BID IV FLUSH 08/20/17 21:00 08/20/17 21:43 (Narcan Inj) 0.4 mg UNSCH PRN IV PUSH 08/20/17 20:30 (Romazicon Inj) 0.2 mg Q1M PRN IV PUSH 08/20/17 20:30 (Ativan) 1 mg Q4H PRN PO 08/20/17 20:30 08/20/17 23:57 (Ativan Inj) 1 mg Q4H PRN IV PUSH 08/20/17 20:30 (Ativan) 2 mg Q2H PRN PO 08/20/17 20:30 (Ativan Inj) 2 mg Q2H PRN IV PUSH 08/20/17 20:30 (Ativan Inj) 2 mg Q1H PRN IV PUSH 08/20/17 20:30 (Ativan Inj) 2 mg Q15M PRN IV PUSH 08/20/17 20:30 (Vancomycin 25 Mg/ml Liq) 250 mg QID PO 08/21/17 10:00 Potassium Chloride/Sodium Chloride 1,000 ml @ 100 mls/hr Q10H IV 08/21/17 10:00 (K-Lyte Cl Eff) 50 meq ONCE ONCE PO 08/21/17 10:00 08/21/17 10:01 UNV (Xanax) 0.25 mg ONCE ONCE PO 08/21/17 10:00 08/21/17 10:01 UNV Piperacillin Sod/ Tazobactam Sod 100 ml @ 200 mls/hr Q6H IV 08/21/17 10:00 UNV Pharmacy Profile Note 0 ml @ 0 mls/hr UNSCH OTHER 08/21/17 10:00 UNV Vancomycin HCl 800 mg/Sodium Chloride 258 ml @ 250 mls/hr Q12H IV 08/21/17 11:00 UNV A/P Problem List: (1) Leukocytosis ICD Code: D72.829 - Elevated white blood cell count, unspecified Status: Acute (2) Diarrhea ICD Code: R19.7 - Diarrhea, unspecified Status: Acute (3) Hypokalemia ICD Code: E87.6 - Hypokalemia Status: Acute (4) Hyponatremia ICD Code: E87.1 - Hypo-osmolality and hyponatremia Status: Acute Assessment and Plan Severe sepsis/ Lactic acidosis The pt has diarrhea and right sided pneumonia. - continue IV vancomycin and Zosyn. - Blood and stool cultures are pending. - IVFs. - telemetry. - trend lactic acid level. Diarrhea Suspect infectious. GI consult appreciated. - Stool studies ordered. - Continue IV antibiotics as above. Add PO vancomycin while awaiting C diff PCR. - colonoscopy in AM. Severe hypokalemia/ hyponatremia S/t diarrhea. Potassium 1.9, sodium 126 on admission. - Supplementation ordered, trend electrolytes Q4h, replace as needed. - IVFs with KCl at 100 ml/hr. - telemetry. Tachycardia EKG shows sinus tachycardia. S/t sepsis. - Monitor telemetry. EtOH abuse Alcohol level elevated on admission. - CIWA protocol. - Seizure precautions. - cessation instruction. DVT prophylaxis: SCDs Discharge Planning Transfer to ICU Problem Qualifiers (1) Leukocytosis: Qualified Codes: D72.829 - Elevated white blood cell count, unspecified (2) Diarrhea: Qualified Codes: R19.7 - Diarrhea, unspecified Will Gunn DO Aug 21, 2017 10:09
[2017-08-21] MEDS ORDERED: VANCOMYCIN INJ 800 MG in SODIUM CHLOR 0.9% 250 ML INJ 250 ML IV SCH (11:00)
[2017-08-21 12:09] LABS: ALBUMIN 2.2 GM/DL (3.4-5.0); DIRECT BILIRUBIN ADULT 0.5 MG/DL (0.0-0.2)
[2017-08-21 12:11] LABS: INDIRECT BILIRUBIN 0.8 MG/DL (0.0-0.8); TOTAL BILIRUBIN ADULT 1.3 MG/DL (0.2-1.0); TOTAL PROTEIN 5.8 GM/DL (6.4-8.2)
[2017-08-21 12:17] LABS: BICARBONATE 25.8 MEQ/L (21.0-32.0); BLOOD UREA NITROGEN LESS THAN 1 MG/DL (7-18); CALCIUM 6.4 MG/DL (8.5-10.1); CHLORIDE 99 MEQ/L (98-107); CREATININE 0.63 MG/DL (0.50-1.00); GLOMERULAR FILTRATION RATE 101 ML/MIN (>89); GLUCOSE,RANDOM 76 MG/DL (74-106); MAGNESIUM 1.8 MG/DL (1.5-2.5); SODIUM (NA) 136 MEQ/L (136-145)
[2017-08-21] MEDS: SODIUM CHLORIDE 0.9% FLUSH 10 ML FLUSH IV FLUSH SCH ×2 (12:26→21:00)
[2017-08-21] MEDS: PIPERACIL-TAZO 4.5 GM PREMIX 100 ML IV SCH ×3 (12:26→21:03)
[2017-08-21] MEDS: NICOTINE 21 MG/24 HR PATCH T-DERMAL SCH (13:00)
[2017-08-21 13:06] LABS: TOTAL PROTEIN 5.8 GM/DL (6.4-8.2)
[2017-08-21] MEDS: VANCOMYCIN INJ 750 MG in SODIUM CHLOR 0.9% 250 ML INJ 250 ML IV SCH ×2 (13:23→23:36)
[2017-08-21] MEDS ORDERED: CHLORHEXIDINE GLUCONATE 2 % 1 PACK (2 CLOTHS)(extra cloths) TOPICAL PRN (13:30)
[2017-08-21] MEDS ORDERED: CALCIUM GLUCONATE INJ 2 GM in SODIUM CHLORIDE 0.9% INJ 100 ML IV ONE (15:00)
[2017-08-21 15:21] LABS: MAGNESIUM 1.7 MG/DL (1.5-2.5)
[2017-08-21 15:27] LABS: BICARBONATE 27.5 MEQ/L (21.0-32.0); BLOOD UREA NITROGEN LESS THAN 1 MG/DL (7-18); CALCIUM 6.1 MG/DL (8.5-10.1); CHLORIDE 99 MEQ/L (98-107); GLOMERULAR FILTRATION RATE 132 ML/MIN (>89); GLUCOSE,RANDOM 83 MG/DL (74-106); PHOSPHORUS 1.2 MG/DL (2.5-4.9); SODIUM (NA) 138 MEQ/L (136-145)
[2017-08-21 15:54] LABS: TOTAL PROTEIN 5.4 GM/DL (6.4-8.2)
[2017-08-21 15:57] LABS: CALCIUM-PROTEIN CORRECTED 6.9 MG/DL (8.5-10.1)
[2017-08-21] MEDS ORDERED: POTASSIUM PHOSPHATE INJ 30 MMOL in SODIUM CHLOR 0.9% 250 ML INJ 250 ML IV ONE (16:00)
[2017-08-21] MEDS: POTASSIUM CHLORIDE 20 MEQ CONTROLLED RELEASE TAB PO SCH ×2 (16:15→21:02)
[2017-08-21 19:30] LABS: BICARBONATE 26.2 MEQ/L (21.0-32.0); BLOOD UREA NITROGEN LESS THAN 1 MG/DL (7-18); CALCIUM 7.5 MG/DL (8.5-10.1); CHLORIDE 102 MEQ/L (98-107); CREATININE 0.45 MG/DL (0.50-1.00); GLOMERULAR FILTRATION RATE 149 ML/MIN (>89); GLUCOSE,RANDOM 74 MG/DL (74-106); SODIUM (NA) 138 MEQ/L (136-145)
--- NOTE | 2017-08-21 20:02 | EKG ---
Date Performed: 08/20/2017 Time Performed: 19:39:48 PTAGE: 47 years EKG: SINUS TACHYCARDIA ABNORMAL RHYTHM ECG PREVIOUS TRACING : 08/20/2017 17.44 Since the previous tracing, no significant change noted DOCTOR: Wendy Ely Interpretating Date/Time 08/21/2017 20:01:50
--- NOTE | 2017-08-21 20:09 | EKG ---
Date Performed: 08/20/2017 Time Performed: 17:44:54 PTAGE: 47 years EKG: SINUS TACHYCARDIA WITH FIRST DEGREE AV BLOCK ABNORMAL ECG PREVIOUS TRACING : 04/16/2011 19.59 Since the previous tracing, no significant change noted DOCTOR: Wendy Ely Interpretating Date/Time 08/21/2017 20:07:23
[2017-08-21 23:54] LABS: BICARBONATE 21.6 MEQ/L (21.0-32.0); CALCIUM 6.8 MG/DL (8.5-10.1); CREATININE 0.49 MG/DL (0.50-1.00); MAGNESIUM 1.4 MG/DL (1.5-2.5); PHOSPHORUS 1.6 MG/DL (2.5-4.9)
[2017-08-22] VITALS (16 sets, daily range): BP systolic 110–123; BP diastolic 66–83; PULSE 94–129; RESP 16–20; TEMP 98.8–99.5; O2SAT 95–99
[2017-08-22 00:16] LABS: CALCIUM-PROTEIN CORRECTED 7.6 MG/DL (8.5-10.1); TOTAL PROTEIN 5.5 GM/DL (6.4-8.2)
[2017-08-22] MEDS: CHLORHEXIDINE GLUCONATE 2 % 1 PACK (2 CLOTHS)(taper/protocol) TOPICAL SCH (04:00)
[2017-08-22] MEDS: PIPERACIL-TAZO 4.5 GM PREMIX 100 ML IV SCH (04:57)
[2017-08-22] MEDS ORDERED: SODIUM PHOSPHATE INJ 30 MMOL in SODIUM CHLOR 0.9% 250 ML INJ 240 ML IV PRN (08:45)
[2017-08-22] MEDS ORDERED: MAGNESIUM SULFATE INJ 4 GM in SODIUM CHLORIDE 0.9% INJ 92 ML IV PRN (08:45)
[2017-08-22] MEDS ORDERED: POTASSIUM CHLOR 40 MEQ PREMIX 100 ML IV PRN ×2 (08:45)
[2017-08-22] MEDS ORDERED: POTASSIUM PHOSPHATE INJ 30 MMOL in SODIUM CHLOR 0.9% 250 ML INJ 250 ML IV PRN (08:45)
[2017-08-22] MEDS ORDERED: POTASSIUM PHOSPHATE MONOBASIC 500 MG TAB PO PRN (08:45)
[2017-08-22] MEDS ORDERED: MAGNESIUM OXIDE 400 MG TAB PO PRN (08:45)
[2017-08-22] MEDS ORDERED: POTASSIUM PHOSPHATE MONOBASIC 500 MG TAB PO/TUBE PRN (08:45)
[2017-08-22] MEDS ORDERED: POTASSIUM CHLOR 20 MEQ PREMIX 100 ML IV PRN (08:45)
[2017-08-22 08:47] LABS: HEMATOCRIT 32.7 % (35.0-46.0); HEMOGLOBIN 11.2 GM/DL (11.6-15.3); MEAN CELL VOLUME 105.4 FL (80.0-100.0); MEAN CORPUSCULAR HGB CONC 34.2 % (32.0-36.0); PLATELET COUNT 156 TH/MM3 (150-450); RED CELL DISTRIBUTION WIDTH 15.5 % (11.6-17.2); WHITE BLOOD COUNT 7.8 TH/MM3 (4.0-11.0)
[2017-08-22] MEDS: SODIUM CHLORIDE 0.9% FLUSH 10 ML FLUSH IV FLUSH SCH ×2 (09:00→20:33)
[2017-08-22] MEDS: REMOVE OLD PATCH T-DERMAL SCH (09:00)
[2017-08-22] MEDS: NICOTINE 21 MG/24 HR PATCH T-DERMAL SCH (09:00)
[2017-08-22 09:27] LABS: BICARBONATE 24.6 MEQ/L (21.0-32.0); BLOOD UREA NITROGEN LESS THAN 1 MG/DL (7-18); CALCIUM 7.1 MG/DL (8.5-10.1); CHLORIDE 105 MEQ/L (98-107); CREATININE 0.37 MG/DL (0.50-1.00); GLOMERULAR FILTRATION RATE 187 ML/MIN (>89); GLUCOSE,RANDOM 73 MG/DL (74-106); SODIUM (NA) 139 MEQ/L (136-145)
[2017-08-22 09:50] LABS: CALCIUM-PROTEIN CORRECTED 7.9 MG/DL (8.5-10.1); TOTAL PROTEIN 5.5 GM/DL (6.4-8.2)
[2017-08-22] MEDS ORDERED: POTASSIUM PHOSPHATE INJ 30 MMOL in SODIUM CHLOR 0.9% 250 ML INJ 250 ML IV ONE (10:00)
--- NOTE | 2017-08-22 10:36 | GIPROC ---
[facility] [address] [facility]. [facility], [address] COLONOSCOPY PROCEDURE REPORT EXAM DATE: 08/22/2017 PATIENT NAME: Yulia Luis MR #: [id number] BIRTHDATE: 1970 ENDOSCOPIST: Roselia Vega MD ORDER #: [id number] MILITARY EDUCATION COORDINATOR: Schuyler Messer and Adela Rush STATUS: inpatient INDICATIONS: The patient is a 47 yr old female here for a colonoscopy due to unexplained diarrhea PROCEDURE PERFORMED: Colonoscopy with polypectomy Colonoscopy with biopsy MEDICATIONS: Per Anesthesia and None. PREP QUALITY: fair PREP TYPE:Magnesium Citrate ESTIMATED BLOOD LOSS: None CONSENT: The patient understands the risks and benefits of the procedure and understands that these risks include, but are not limited to: sedation, allergic reaction, infection, perforation and/or bleeding. Alternative means of evaluation and treatment include, among others: physical exam, x-rays, and/or surgical intervention. The patient elects to proceed with this endoscopic procedure. medical equipment was checked for proper function. Hand hygiene and appropriate measures for infection prevention was taken. After the risks, benefits and alternatives of the procedure were thoroughly explained, Informed consent was verified, confirmed and timeout was successfully executed by the treatment team. A digital exam revealed no abnormalities of the rectum The Pentax [id number] endoscope was introduced through the anus and advanced to the cecum, which was identified by both the appendix and ileocecal valve. The instrument was then slowly withdrawn as the colon was fully examined. COLON FINDINGS: Mild diverticulosis was noted in the sigmoid colon. No bleeding was noted from the diverticulosis. A diffuse circumferential patch of atrophic colitis was found in the ascending colon and at the cecum. The mucosa was atrophic, friable and erythematous. Multiple biopsies were performed using cold forceps. A small smooth sessile polyp, ranging between 3-5mm in size, was found in the ascending colon. A polypectomy was performed with cold forceps. The resection was complete and the polyp tissue was completely retrieved. Retroflexed views revealed no abnormalities The scope was then completely withdrawn from the patient and the procedure terminated. PROCEDURE WITHDRAWAL TIME:10minutes ADVERSE EVENTS: There were no complications. IMPRESSIONS: 1. Mild diverticulosis was noted in the sigmoid colon 2. Diffuse circumferential colitis was found in the ascending colon and at the cecum; The mucosa was atrophic, friable and erythematous; multiple biopsies were performed using cold forceps 3. A small sessile polyp, ranging between 3-5mm in size, was found in the ascending colon; polypectomy was performed with cold forceps 4. Retroflexed views revealed no abnormalities RECOMMENDATIONS: 1. Await biopsy results. Biopsy results will not be ready for 7-10 days. If you don't hear from us in two weeks, call our office for results. 2. High fiber diet RECALL: Return 3 years Colonoscopy Roselia Vega MD eSigned: Roselia Vega MD 08/22/2017 10:36 AM cc: PATIENT NAME: Yulia Luis MR#: [id number]
[2017-08-22] MEDS ORDERED: DO NOT ADM ANY ANTICOAGULANT DRUGS PRN (11:00)
[2017-08-22] MEDS ORDERED: PROPOFOL 200 MG/20 ML AMP IV ONE (12:00)
[2017-08-22 13:05] LABS: BICARBONATE 27.4 MEQ/L (21.0-32.0); BLOOD UREA NITROGEN LESS THAN 1 MG/DL (7-18); CALCIUM 7.1 MG/DL (8.5-10.1); CHLORIDE 104 MEQ/L (98-107); GLOMERULAR FILTRATION RATE 171 ML/MIN (>89); GLUCOSE,RANDOM 70 MG/DL (74-106); MAGNESIUM 1.2 MG/DL (1.5-2.5); PHOSPHORUS 3.1 MG/DL (2.5-4.9); SODIUM (NA) 141 MEQ/L (136-145)
[2017-08-22 13:34] LABS: CALCIUM-PROTEIN CORRECTED 7.6 MG/DL (8.5-10.1); TOTAL PROTEIN 6.2 GM/DL (6.4-8.2)
[2017-08-22] MEDS: LORazepam 1 MG TAB PO PRN ×2 (14:27→22:47)
[2017-08-22] MEDS: MAGNESIUM SULFATE 1 GM PREMIX 100 ML IV SCH ×3 (14:27→17:12)
[2017-08-22] MEDS: POTASSIUM CHLORIDE INJ 30 MEQ in DEXT 5%-NACL 0.9% 1000 ML INJ 1,000 ML IV SCH ×3 (14:27→22:36)
[2017-08-22] MEDS: LEVOFLOXACIN 750 MG PREMIX INJ 150 ML IV SCH (17:11)
--- NOTE | 2017-08-22 17:11 | HHI.PR ---
Subjective Remarks The pt was resting in bed. Her family was at the bedside. She said the medications were helping with her pain and anxiety. Their questions were answered. She tolerated some of her liquid diet. Discussed with nursing. Objective Vitals Vital Signs Date Time Temp Pulse Resp B/P (MAP) Pulse Ox O2 Delivery O2 Flow Rate FiO2 08/22/17 12:00 99.5 106 16 120/82 (95) 97 08/22/17 12:00 106 08/22/17 10:55 105 16 101/61 (74) 98 Nasal Cannula 2 08/22/17 10:45 103 16 99/59 (72) 97 Nasal Cannula 2 08/22/17 10:38 99.5 105 16 103/60 (74) 98 Nasal Cannula 2 08/22/17 09:00 101 08/22/17 08:00 104 08/22/17 08:00 99.2 104 18 121/72 (88) 96 08/22/17 07:00 104 08/22/17 06:00 98 08/22/17 04:00 99 08/22/17 04:00 99.3 99 16 117/69 (85) 97 08/22/17 02:00 101 08/22/17 00:00 98.8 104 18 123/66 (85) 96 08/22/17 00:00 104 08/21/17 22:57 18 08/21/17 22:00 115 08/21/17 20:00 99.8 13 98/66 (77) 98 08/21/17 20:00 109 08/21/17 18:00 100 I/O 08/21/17 08/21/17 08/21/17 08/22/17 08/22/17 08/22/17 07:00 15:00 23:00 07:00 15:00 23:00 Intake Total 408 ml 1050 ml 1536 ml 800 ml 660 ml Output Total 1100 ml 200 ml Balance 408 ml 1050 ml 1536 ml -300 ml 460 ml Intake Oral 240 ml 200 ml IV Total 408 ml 1050 ml 1296 ml 600 ml 410 ml Other 250 ml Output Urine Total 700 ml Stool Total 400 ml 200 ml # Voids 3 5 # Bowel Movements 10 Result Diagram: 08/22/17 0807 08/22/17 1150 Imaging Last Impressions Abdomen/Pelvis CT 08/21/17 0000 Signed Impressions: Service Date/Time: Monday, August 21, 2017 06:57 - CONCLUSION: 1. Right middle lobe pneumonia with infiltrates right lower lobe and lingula as well. 2. Thickening of the transverse colon wall could be technical, however colitis is not excluded. Fernando Euceda MD Chest X-Ray 08/20/17 2208 Signed Impressions: Service Date/Time: Sunday, August 20, 2017 17:37 - CONCLUSION: Lingular and right middle lobe airspace disease suspected. Daniel Rai MD Objective Remarks GENERAL: No apparent distress. SKIN: No rashes, ecchymoses or lesions. Cool and dry. HEAD: Atraumatic. Normocephalic. EYES: Pupils equal round and reactive. ENT: Nose without bleeding, purulent drainage or septal hematoma.. Airway patent. NECK: Trachea midline. No JVD or lymphadenopathy. CARDIOVASCULAR: Tachycardic without murmurs, gallops or rubs. RESPIRATORY: Clear to auscultation. Breath sounds equal bilaterally. No wheezes , rales, or rhonchi. GASTROINTESTINAL: Abdomen soft, non-tender, nondistended. Hyperactive bowel sounds. MUSCULOSKELETAL: Extremities without clubbing, cyanosis, or edema. NEUROLOGICAL: Awake and alert. Motor and sensory grossly within normal limits. Five out of 5 muscle strength in all muscle groups. Normal speech. Procedures Colonoscopy 08/22 Medications and IVs Current Medications Medications (Trade) Dose Ordered Sig/Artis Route Start Time Stop Time Status Last Admin (NS Flush) 2 ml UNSCH PRN IV FLUSH 08/20/17 20:30 (NS Flush) 2 ml BID IV FLUSH 08/20/17 21:00 08/22/17 09:00 (Narcan Inj) 0.4 mg UNSCH PRN IV PUSH 08/20/17 20:30 (Romazicon Inj) 0.2 mg Q1M PRN IV PUSH 08/20/17 20:30 (Ativan) 1 mg Q4H PRN PO 08/20/17 20:30 08/20/17 23:57 (Ativan Inj) 1 mg Q4H PRN IV PUSH 08/20/17 20:30 (Ativan) 2 mg Q2H PRN PO 08/20/17 20:30 (Ativan Inj) 2 mg Q2H PRN IV PUSH 08/20/17 20:30 (Ativan Inj) 2 mg Q1H PRN IV PUSH 08/20/17 20:30 (Ativan Inj) 2 mg Q15M PRN IV PUSH 08/20/17 20:30 (Habitrol 21 Mg Patch.24 Hr) 1 patch DAILY T-DERMAL 08/21/17 13:00 08/21/17 13:00 Miscellaneous Information 1 DAILY T-DERMAL 08/22/17 09:00 08/22/17 09:00 Miscellaneous Information Patient in critical care unit? Ass... [id number] .XX 08/21/17 13:30 (Chlorhexidine 2% Cloth) 3 pack DAILY@04 TOPICAL 08/22/17 04:00 08/26/17 04:01 (Chlorhexidine 2% Cloth) 3 pack UNSCH PRN TOPICAL 08/21/17 13:30 08/26/17 13:29 (Roxicodone) 5 mg Q4H PRN PO 08/21/17 17:30 08/22/17 14:27 (Roxicodone) 10 mg Q4H PRN PO 08/21/17 17:30 08/21/17 21:06 Potassium Chloride 30 meq/ Dextrose/Sodium Chloride 1,015 ml @ 125 mls/hr Q8H8M IV 08/22/17 08:45 08/22/17 14:27 Potassium Chloride 100 ml @ 50 mls/hr Q2H PRN IV 08/22/17 08:45 Potassium Chloride 100 ml @ 50 mls/hr Q2H PRN IV 08/22/17 08:45 (K-Lyte Cl Eff) 50 meq UNSCH PRN PO 08/22/17 08:45 Potassium Chloride 100 ml @ 25 mls/hr UNSCH PRN IV 08/22/17 08:45 Potassium Chloride 100 ml @ 50 mls/hr Q2H PRN IV 08/22/17 08:45 Magnesium Sulfate 4 gm/Sodium Chloride 100 ml @ 50 mls/hr UNSCH PRN IV 08/22/17 08:45 (Mag-Ox) 800 mg UNSCH PRN PO 08/22/17 08:45 Magnesium Sulfate 2 gm/Sodium Chloride 100 ml @ 50 mls/hr UNSCH PRN IV 08/22/17 08:45 (K-Phos) 2,000 mg Q4H PRN PO 08/22/17 08:45 Sodium Phosphate 30 mmol/Sodium Chloride 250 ml @ 42 mls/hr UNSCH PRN IV 08/22/17 08:45 (K-Phos) 2,000 mg UNSCH PRN PO/TUBE 08/22/17 08:45 Potassium Phosphate 30 mmol/ Sodium Chloride 260 ml @ 42 mls/hr UNSCH PRN IV 08/22/17 08:45 Miscellaneous Information ALL NURSING DEPARTME... UNSCH PRN .XX 08/22/17 11:00 08/23/17 10:59 Levofloxacin/ Dextrose 150 ml @ 100 mls/hr Q24H IV 08/22/17 14:00 Metronidazole 100 ml @ 100 mls/hr Q8H IV 08/22/17 15:00 (Ativan) 1 mg Q8H PRN PO 08/22/17 13:45 08/22/17 14:27 A/P Problem List: (1) Leukocytosis ICD Code: D72.829 - Elevated white blood cell count, unspecified Status: Acute (2) Diarrhea ICD Code: R19.7 - Diarrhea, unspecified Status: Acute (3) Hypokalemia ICD Code: E87.6 - Hypokalemia Status: Acute (4) Hyponatremia ICD Code: E87.1 - Hypo-osmolality and hyponatremia Status: Acute Assessment and Plan Severe sepsis/ Lactic acidosis/ Acute diverticulitis The pt has diarrhea and right sided pneumonia. C diff negative. GI consult appreciated. Diverticulitis noted on colonoscopy. - change antibiotics to Levaquin and Flagyl. - Blood and stool cultures are pending. - IVFs. - telemetry. - follow pathology. - diet per GI. - fecal collection bag as needed. Severe hypokalemia/ hyponatremia/ hypomagnesemia S/t diarrhea. Potassium 1.9, sodium 126 on admission. - Supplementation ordered, trend electrolytes closely, replace as needed. - IVFs with KCl at 125 ml/hr. - telemetry. - ADAT. Tachycardia EKG shows sinus tachycardia. S/t sepsis. - Monitor telemetry. Stable. EtOH abuse/ Anxiety Alcohol level elevated on admission. - CIWA protocol. - Seizure precautions. - cessation instruction. - psych consult for chronic anxiety issues. Hypoglycemia S/t decreased PO intake. - IVFs with D5. DVT prophylaxis: SCDs Discharge Planning Keep in ICU Problem Qualifiers (1) Leukocytosis: Qualified Codes: D72.829 - Elevated white blood cell count, unspecified (2) Diarrhea: Qualified Codes: R19.7 - Diarrhea, unspecified Will Gunn DO Aug 22, 2017 17:11
[2017-08-22] MEDS: metroNIDAZOLE 500 MG INJ 100 ML IV SCH ×2 (17:12→20:33)
[2017-08-22 21:06] LABS: BLOOD UREA NITROGEN LESS THAN 1 MG/DL (7-18); CALCIUM 7.1 MG/DL (8.5-10.1); CHLORIDE 101 MEQ/L (98-107); GLOMERULAR FILTRATION RATE 171 ML/MIN (>89); GLUCOSE,RANDOM 74 MG/DL (74-106); MAGNESIUM 1.6 MG/DL (1.5-2.5); SODIUM (NA) 136 MEQ/L (136-145)
[2017-08-22 21:21] LABS: CALCIUM-PROTEIN CORRECTED 7.8 MG/DL (8.5-10.1); TOTAL PROTEIN 5.8 GM/DL (6.4-8.2)
[2017-08-23] VITALS (19 sets, daily range): BP systolic 92–133; BP diastolic 69–93; PULSE 90–147; RESP 14–29; TEMP 98–99.1; O2SAT 91–100
[2017-08-23] MEDS ORDERED: PHARMACY ORDERED LAB ONE (00:45)
[2017-08-23 03:45] LABS: BLOOD UREA NITROGEN LESS THAN 1 MG/DL (7-18); CALCIUM 6.1 MG/DL (8.5-10.1); CHLORIDE 104 MEQ/L (98-107); CREATININE 0.27 MG/DL (0.50-1.00); GLOMERULAR FILTRATION RATE 269 ML/MIN (>89); GLUCOSE,RANDOM 87 MG/DL (74-106); MAGNESIUM 1.3 MG/DL (1.5-2.5); PHOSPHORUS 3.7 MG/DL (2.5-4.9); SODIUM (NA) 139 MEQ/L (136-145)
[2017-08-23] MEDS: CHLORHEXIDINE GLUCONATE 2 % 1 PACK (2 CLOTHS)(taper/protocol) TOPICAL SCH (04:00)
[2017-08-23 04:08] LABS: TOTAL PROTEIN 5.2 GM/DL (6.4-8.2)
[2017-08-23] MEDS ORDERED: POTASSIUM CHLORIDE 20 MEQ CONTROLLED RELEASE TAB PO ONE (04:30)
[2017-08-23] MEDS ORDERED: CALCIUM GLUCONATE 10% 1 GM/10 ML VIAL IV PUSH ONE (04:30)
[2017-08-23] MEDS: MAGNESIUM SULFATE 1 GM PREMIX 100 ML IV SCH ×2 (05:03→06:07)
[2017-08-23] MEDS: NICOTINE 21 MG/24 HR PATCH T-DERMAL SCH (08:04)
[2017-08-23] MEDS: metroNIDAZOLE 500 MG INJ 100 ML IV SCH ×3 (08:04→23:00)
[2017-08-23] MEDS: LORazepam 1 MG TAB PO PRN (08:04)
[2017-08-23] MEDS: SODIUM CHLORIDE 0.9% FLUSH 10 ML FLUSH IV FLUSH SCH ×2 (08:05→21:00)
[2017-08-23] MEDS: REMOVE OLD PATCH T-DERMAL SCH (08:05)
[2017-08-23] MEDS ORDERED: CALCIUM GLUCONATE INJ 2 GM in SODIUM CHLORIDE 0.9% INJ 100 ML IV ONE (08:45)
[2017-08-23 08:54] LABS: HEMATOCRIT 34.2 % (35.0-46.0); HEMOGLOBIN 11.7 GM/DL (11.6-15.3); MEAN CELL VOLUME 107.2 FL (80.0-100.0); MEAN CORPUSCULAR HEMOGLOBIN 36.8 PG (27.0-34.0); MEAN CORPUSCULAR HGB CONC 34.3 % (32.0-36.0); MEAN PLATELET VOLUME 7.8 FL (7.0-11.0); PLATELET COUNT 150 TH/MM3 (150-450); RED BLOOD COUNT 3.19 MIL/MM3 (4.00-5.30); RED CELL DISTRIBUTION WIDTH 15.5 % (11.6-17.2); WHITE BLOOD COUNT 7.7 TH/MM3 (4.0-11.0)
[2017-08-23] MEDS: POTASSIUM CHLORIDE INJ 30 MEQ in DEXT 5%-NACL 0.9% 1000 ML INJ 1,000 ML IV SCH (09:09)
[2017-08-23 09:17] LABS: BICARBONATE 22.1 MEQ/L (21.0-32.0); BLOOD UREA NITROGEN LESS THAN 1 MG/DL (7-18); CALCIUM 7.6 MG/DL (8.5-10.1); CHLORIDE 102 MEQ/L (98-107); CREATININE 0.28 MG/DL (0.50-1.00); GLOMERULAR FILTRATION RATE 258 ML/MIN (>89); GLUCOSE,RANDOM 82 MG/DL (74-106); MAGNESIUM 1.8 MG/DL (1.5-2.5); SODIUM (NA) 135 MEQ/L (136-145)
[2017-08-23] MEDS: POTASSIUM CHLORIDE 25 MEQ EFFERVESCENT TAB PO PRN (09:41)
[2017-08-23] MEDS: SODIUM CHLORIDE 0.9% FLUSH 10 ML FLUSH IV FLUSH PRN ×5 (09:42→18:24)
[2017-08-23] MEDS: LORazepam 2 MG/ML VIAL IV PUSH PRN ×10 (09:42→22:14)
--- NOTE | 2017-08-23 10:24 | HHI.PR ---
Subjective Remarks The patient wanted to eat more solid food. She was unsure of how her diarrhea was. She wanted to know what was causing her diarrhea. She had no acute complaints. Objective Vitals Vital Signs Date Time Temp Pulse Resp B/P (MAP) Pulse Ox O2 Delivery O2 Flow Rate FiO2 08/23/17 06:00 93 08/23/17 04:00 98.7 90 17 102/74 (83) 97 08/23/17 04:00 90 08/23/17 02:00 91 08/23/17 00:00 99.1 97 18 116/86 (96) 97 08/23/17 00:00 97 08/22/17 23:47 20 08/22/17 22:00 94 08/22/17 20:00 107 08/22/17 20:00 99.3 107 19 110/81 (91) 99 08/22/17 18:00 105 08/22/17 17:00 106 08/22/17 16:00 99.5 107 20 115/83 (94) 95 08/22/17 16:00 107 08/22/17 15:00 114 08/22/17 14:00 129 08/22/17 13:00 129 08/22/17 12:00 99.5 106 16 120/82 (95) 97 08/22/17 12:00 106 08/22/17 10:55 105 16 101/61 (74) 98 Nasal Cannula 2 08/22/17 10:45 103 16 99/59 (72) 97 Nasal Cannula 2 08/22/17 10:38 99.5 105 16 103/60 (74) 98 Nasal Cannula 2 I/O 08/22/17 08/22/17 08/22/17 08/23/17 08/23/17 08/23/17 07:00 15:00 23:00 07:00 15:00 23:00 Intake Total 800 ml 660 ml 1700 ml Output Total 1100 ml 200 ml 1500 ml 500 ml Balance -300 ml 460 ml 200 ml -500 ml Intake Oral 200 ml 600 ml IV Total 600 ml 410 ml 1100 ml Other 250 ml Output Urine Total 700 ml Stool Total 400 ml 200 ml 1500 ml 500 ml # Voids 5 5 8 # Bowel Movements 3 Result Diagram: 08/23/17 0755 08/23/17 0755 Imaging Last Impressions Abdomen/Pelvis CT 08/21/17 0000 Signed Impressions: Service Date/Time: Monday, August 21, 2017 06:57 - CONCLUSION: 1. Right middle lobe pneumonia with infiltrates right lower lobe and lingula as well. 2. Thickening of the transverse colon wall could be technical, however colitis is not excluded. Fernando Euceda MD Chest X-Ray 08/20/17 1728 Signed Impressions: Service Date/Time: Sunday, August 20, 2017 17:37 - CONCLUSION: Lingular and right middle lobe airspace disease suspected. Daniel Rai MD Objective Remarks GENERAL: No apparent distress. SKIN: No rashes, ecchymoses or lesions. Cool and dry. HEAD: Atraumatic. Normocephalic. EYES: Pupils equal round and reactive. ENT: Nose without bleeding, purulent drainage or septal hematoma.. Airway patent. NECK: Trachea midline. No JVD or lymphadenopathy. CARDIOVASCULAR: Tachycardic without murmurs, gallops or rubs. RESPIRATORY: Clear to auscultation. Breath sounds equal bilaterally. No wheezes , rales, or rhonchi. GASTROINTESTINAL: Abdomen soft, non-tender, nondistended. MUSCULOSKELETAL: Extremities without clubbing, cyanosis, or edema. NEUROLOGICAL: Awake and alert. Motor and sensory grossly within normal limits. Five out of 5 muscle strength in all muscle groups. Normal speech. PSYCH: Calm. Procedures Colonoscopy 08/22 Medications and IVs Current Medications Medications (Trade) Dose Ordered Sig/Artis Route Start Time Stop Time Status Last Admin (NS Flush) 2 ml UNSCH PRN IV FLUSH 08/20/17 20:30 08/23/17 09:42 (NS Flush) 2 ml BID IV FLUSH 08/20/17 21:00 08/23/17 08:05 (Narcan Inj) 0.4 mg UNSCH PRN IV PUSH 08/20/17 20:30 (Romazicon Inj) 0.2 mg Q1M PRN IV PUSH 08/20/17 20:30 (Ativan) 1 mg Q4H PRN PO 08/20/17 20:30 08/20/17 23:57 (Ativan Inj) 1 mg Q4H PRN IV PUSH 08/20/17 20:30 08/23/17 09:42 (Ativan) 2 mg Q2H PRN PO 08/20/17 20:30 (Ativan Inj) 2 mg Q2H PRN IV PUSH 08/20/17 20:30 (Ativan Inj) 2 mg Q1H PRN IV PUSH 08/20/17 20:30 (Ativan Inj) 2 mg Q15M PRN IV PUSH 08/20/17 20:30 (Habitrol 21 Mg Patch.24 Hr) 1 patch DAILY T-DERMAL 08/21/17 13:00 08/23/17 08:04 Miscellaneous Information 1 DAILY T-DERMAL 08/22/17 09:00 08/22/17 09:00 Miscellaneous Information Patient in critical care unit? Ass... Q361D .XX 08/21/17 13:30 (Chlorhexidine 2% Cloth) 3 pack DAILY@04 TOPICAL 08/22/17 04:00 08/26/17 04:01 08/23/17 04:00 (Chlorhexidine 2% Cloth) 3 pack UNSCH PRN TOPICAL 08/21/17 13:30 08/26/17 13:29 (Roxicodone) 5 mg Q4H PRN PO 08/21/17 17:30 08/22/17 14:27 (Roxicodone) 10 mg Q4H PRN PO 08/21/17 17:30 08/22/17 22:47 Potassium Chloride 30 meq/ Dextrose/Sodium Chloride 1,015 ml @ 125 mls/hr Q8H8M IV 08/22/17 08:45 08/22/17 22:36 Potassium Chloride 100 ml @ 50 mls/hr Q2H PRN IV 08/22/17 08:45 Potassium Chloride 100 ml @ 50 mls/hr Q2H PRN IV 08/22/17 08:45 (K-Lyte Cl Eff) 50 meq UNSCH PRN PO 08/22/17 08:45 08/23/17 09:41 Potassium Chloride 100 ml @ 25 mls/hr UNSCH PRN IV 08/22/17 08:45 Potassium Chloride 100 ml @ 50 mls/hr Q2H PRN IV 08/22/17 08:45 Magnesium Sulfate 4 gm/Sodium Chloride 100 ml @ 50 mls/hr UNSCH PRN IV 08/22/17 08:45 (Mag-Ox) 800 mg UNSCH PRN PO 08/22/17 08:45 Magnesium Sulfate 2 gm/Sodium Chloride 100 ml @ 50 mls/hr UNSCH PRN IV 08/22/17 08:45 (K-Phos) 2,000 mg Q4H PRN PO 08/22/17 08:45 Sodium Phosphate 30 mmol/Sodium Chloride 250 ml @ 42 mls/hr UNSCH PRN IV 08/22/17 08:45 (K-Phos) 2,000 mg UNSCH PRN PO/TUBE 08/22/17 08:45 Potassium Phosphate 30 mmol/ Sodium Chloride 260 ml @ 42 mls/hr UNSCH PRN IV 08/22/17 08:45 Miscellaneous Information ALL NURSING DEPARTME... UNSCH PRN .XX 08/22/17 11:00 08/23/17 10:59 Levofloxacin/ Dextrose 150 ml @ 100 mls/hr Q24H IV 08/22/17 14:00 08/22/17 17:11 Metronidazole 100 ml @ 100 mls/hr Q8H IV 08/22/17 15:00 08/23/17 08:04 (Ativan) 1 mg Q8H PRN PO 08/22/17 13:45 08/23/17 08:04 A/P Problem List: (1) Leukocytosis ICD Code: D72.829 - Elevated white blood cell count, unspecified Status: Acute (2) Diarrhea ICD Code: R19.7 - Diarrhea, unspecified Status: Acute (3) Hypokalemia ICD Code: E87.6 - Hypokalemia Status: Acute (4) Hyponatremia ICD Code: E87.1 - Hypo-osmolality and hyponatremia Status: Acute Assessment and Plan Severe sepsis/ Lactic acidosis/ Acute diverticulitis The pt has diarrhea and right sided pneumonia. C diff negative. GI consult appreciated. Diverticulitis noted on colonoscopy. - changed antibiotics to Levaquin and Flagyl. - Blood and stool cultures are pending. NGTD. - IVFs. - telemetry. - follow pathology. - diet per GI. - fecal collection bag as needed. - pain control as needed. Severe hypokalemia/ hyponatremia/ hypomagnesemia S/t diarrhea. Potassium 1.9, sodium 126 on admission. Improving. - Supplementation ordered, trend electrolytes closely, replace as needed. On ICU replacement protocol. - IVFs with KCl at 125 ml/hr. - telemetry. Tachycardia EKG shows sinus tachycardia. S/t sepsis. - Monitor telemetry. Stable. EtOH abuse/ Anxiety Alcohol level elevated on admission. - CIWA protocol. - Seizure precautions. - cessation instruction. - psych consult for chronic anxiety issues. Hypoglycemia S/t decreased PO intake. - IVFs with D5. DVT prophylaxis: SCDs Discharge Planning Keep in ICU until electrolytes stabilize Problem Qualifiers (1) Leukocytosis: Qualified Codes: D72.829 - Elevated white blood cell count, unspecified (2) Diarrhea: Qualified Codes: R19.7 - Diarrhea, unspecified Will Gunn DO Aug 23, 2017 10:24
[2017-08-23 13:05] LABS: BICARBONATE 23.5 MEQ/L (21.0-32.0); BLOOD UREA NITROGEN LESS THAN 1 MG/DL (7-18); CALCIUM 7.2 MG/DL (8.5-10.1); CHLORIDE 104 MEQ/L (98-107); CREATININE 0.33 MG/DL (0.50-1.00); GLOMERULAR FILTRATION RATE 214 ML/MIN (>89); GLUCOSE,RANDOM 86 MG/DL (74-106); MAGNESIUM 1.5 MG/DL (1.5-2.5); PHOSPHORUS 2.8 MG/DL (2.5-4.9); SODIUM (NA) 137 MEQ/L (136-145)
[2017-08-23 13:26] LABS: CALCIUM-PROTEIN CORRECTED 7.8 MG/DL (8.5-10.1); TOTAL PROTEIN 5.9 GM/DL (6.4-8.2)
--- NOTE | 2017-08-23 13:34 | HHI.GIFU ---
Subjective Remarks Pt sitting up in bed States needs to have a BM Reports continued diarrhea Tolerating full liquid diet (Carmel Deleon) Objective Vitals I&O Vital Signs Date Time Temp Pulse Resp B/P (MAP) Pulse Ox O2 Delivery O2 Flow Rate FiO2 08/23/17 06:00 93 08/23/17 04:00 98.7 90 17 102/74 (83) 97 08/23/17 04:00 90 08/23/17 02:00 91 08/23/17 00:00 99.1 97 18 116/86 (96) 97 08/23/17 00:00 97 08/22/17 23:47 20 08/22/17 22:00 94 08/22/17 20:00 107 08/22/17 20:00 99.3 107 19 110/81 (91) 99 08/22/17 18:00 105 08/22/17 17:00 106 08/22/17 16:00 99.5 107 20 115/83 (94) 95 08/22/17 16:00 107 08/22/17 15:00 114 08/22/17 14:00 129 I/O 08/22/17 08/22/17 08/22/17 08/23/17 08/23/17 08/23/17 07:00 15:00 23:00 07:00 15:00 23:00 Intake Total 800 ml 660 ml 1700 ml Output Total 1100 ml 200 ml 1500 ml 500 ml Balance -300 ml 460 ml 200 ml -500 ml Intake Oral 200 ml 600 ml IV Total 600 ml 410 ml 1100 ml Other 250 ml Output Urine Total 700 ml Stool Total 400 ml 200 ml 1500 ml 500 ml # Voids 5 5 8 # Bowel Movements 3 Laboratory Laboratory Tests Test 08/22/17 20:24 08/23/17 02:44 08/23/17 07:55 08/23/17 12:17 Blood Urea Nitrogen LESS THAN 1 LESS THAN 1 LESS THAN 1 LESS THAN 1 Creatinine 0.40 0.27 0.28 0.33 Random Glucose 74 87 82 86 Total Protein 5.8 5.2 Calcium Level 7.1 6.1 7.6 7.2 Magnesium Level 1.6 1.3 1.8 1.5 Sodium Level 136 139 135 137 Potassium Level 2.6 3.0 3.3 3.8 Chloride Level 101 104 102 104 Carbon Dioxide Level 22.0 22.0 22.1 23.5 Anion Gap 13 13 11 10 Estimat Glomerular Filtration Rate 171 269 258 214 Protein Corrected Calcium 7.8 7.0 Phosphorus Level 3.7 2.8 White Blood Count 7.7 Red Blood Count 3.19 Hemoglobin 11.7 Hematocrit 34.2 Mean Corpuscular Volume 107.2 Mean Corpuscular Hemoglobin 36.8 Mean Corpuscular Hemoglobin Concent 34.3 Red Cell Distribution Width 15.5 Platelet Count 150 Mean Platelet Volume 7.8 Date/Time Source Procedure Growth Status 08/20/17 20:00 Blood Peripheral Aerobic Blood Culture - Preliminary NO GROWTH IN 3 DAYS Resulted 08/20/17 20:00 Blood Peripheral Anaerobic Blood Culture - Preliminary NO GROWTH IN 3 DAYS Resulted 08/21/17 07:45 Stool Stool Cryptosporidium Exam - Final NEGATIVE - NO CRYPTOSPORIDIUM ANTIGEN... Complete 08/21/17 07:45 Stool Stool Giardia Antigen (CARTER) - Final NEGATIVE - NO GIARDIA ANTIGEN DETECTE... Complete Imaging Last Impressions Abdomen/Pelvis CT 08/21/17 0000 Signed Impressions: Service Date/Time: Monday, August 21, 2017 06:57 - CONCLUSION: 1. Right middle lobe pneumonia with infiltrates right lower lobe and lingula as well. 2. Thickening of the transverse colon wall could be technical, however colitis is not excluded. Fernando Euceda MD Chest X-Ray 08/20/17 1728 Signed Impressions: Service Date/Time: Sunday, August 20, 2017 17:37 - CONCLUSION: Lingular and right middle lobe airspace disease suspected. Daniel Rai MD Physical Exam HEENT: Normocephalic; atraumatic CHEST: Even/unlabored CARDIAC: Sinus tachycardia. ABDOMEN: Soft, nondistended, nontender; bowel sounds active EXTREMITIES: No clubbing, cyanosis, or edema. SKIN: Normal; no rash; no jaundice. PACKAGER MACHINE: No focal deficits; alert and oriented times three. (Carmel Deleon) Assessment and Plan Plan ASSESSMENT - diarrhea - 2 weeks of watery nearly neon yellow, yellow staining stool. intermittent lower abd cramping, intermittent epigastric pain. limited hx. never had EGD or colonoscopy. CT showed fatty liver, PNA, poss transverse colitis initially refused colonoscopy and now agrees - coagulopathy - INR 1.4 suspect some degree of liver dz. has spider angiomas , liver feels enlarged - leukocytosis - could be 2/2 diarrhea. stool cx pending. afebrile (08/23) --> Pt reports continued diarrhea- approx 5-6 a day. S/P colonoscopy yesterday --> Mild diverticulosis in sigmoid colon. Diffuse circumferential colitis in the ascending colon at the cecum. Mucosa was atrophic, friable and erythematous. Small sessile polyp, ranging between 3-5 mm in size, polypectomy. Stool studies negative. PLAN - Levaquin - Flagyl - Colon biopsy pending - Repeat LFTs - Further recommendations based on clinical course and results of above Pt has been seen and examined by myself and Dr. Vega and this note is written on his behalf (Carmel Deleon) Physician Comments Pathology pending, on ATB , will follow up with you. (Roselia Vega MD) Carmel Deleon Aug 23, 2017 13:34 Roselia Vega MD Aug 23, 2017 14:44
[2017-08-23] MEDS: LEVOFLOXACIN 750 MG PREMIX INJ 150 ML IV SCH (14:27)
[2017-08-23] MEDS: MAGNESIUM SULFATE INJ 2 GM in SODIUM CHLORIDE 0.9% INJ 96 ML IV PRN (17:12)
[2017-08-23] MEDS ORDERED: CALCIUM GLUCONATE INJ 1 GM in DEXTROSE 5% IN WATER 100ML INJ 100 ML IV ONE ×2 (18:00)
[2017-08-23] MEDS ORDERED: METOPROLOL TARTRATE 5 MG/5 ML VIAL ONE (18:03)
[2017-08-23] MEDS ORDERED: SODIUM CHLOR 0.9% 1000 ML INJ 1,000 ML IV ONE (18:15)
[2017-08-23] MEDS ORDERED: METOPROLOL TARTRATE 5 MG/5 ML VIAL IV PUSH ONE (18:30)
[2017-08-23] MEDS: chlordiazePOXIDE 25 MG CAP PO SCH (20:08)
[2017-08-23] MEDS ORDERED: chlordiazePOXIDE 25 MG CAP PO ONE (21:45)
[2017-08-23] MEDS: HALOPERIDOL LACTATE 5 MG/ML AMP IM PRN ×2 (21:45→22:14)
[2017-08-23 23:32] LABS: BICARBONATE 21.6 MEQ/L (21.0-32.0); BLOOD UREA NITROGEN LESS THAN 1 MG/DL (7-18); CALCIUM 7.7 MG/DL (8.5-10.1); CHLORIDE 108 MEQ/L (98-107); CREATININE 0.23 MG/DL (0.50-1.00); GLOMERULAR FILTRATION RATE 324 ML/MIN (>89); GLUCOSE,RANDOM 93 MG/DL (74-106); MAGNESIUM 1.4 MG/DL (1.5-2.5); SODIUM (NA) 140 MEQ/L (136-145)
[2017-08-23 23:33] LABS: PHOSPHORUS 2.5 MG/DL (2.5-4.9)
[2017-08-24] VITALS (20 sets, daily range): BP systolic 97–136; BP diastolic 73–87; PULSE 77–130; RESP 13–73; TEMP 97.7–98.5; O2SAT 83–100
[2017-08-24] MEDS: POTASSIUM CHLOR 20 MEQ PREMIX 100 ML IV PRN ×4 (00:45→08:07)
[2017-08-24] MEDS: POTASSIUM CHLORIDE INJ 30 MEQ in DEXT 5%-NACL 0.9% 1000 ML INJ 1,000 ML IV SCH ×3 (01:30→20:01)
[2017-08-24] MEDS: HALOPERIDOL LACTATE 5 MG/ML AMP IM PRN ×10 (01:30→15:52)
[2017-08-24] MEDS: LORazepam 2 MG/ML VIAL IV PUSH PRN ×10 (01:30→23:44)
[2017-08-24] MEDS: CHLORHEXIDINE GLUCONATE 2 % 1 PACK (2 CLOTHS)(taper/protocol) TOPICAL SCH (04:00)
[2017-08-24] MEDS ORDERED: METOPROLOL TARTRATE 5 MG/5 ML VIAL IV PUSH ONE (05:00)
[2017-08-24] MEDS: chlordiazePOXIDE 25 MG CAP PO SCH (06:00)
[2017-08-24] MEDS: metroNIDAZOLE 500 MG INJ 100 ML IV SCH ×3 (08:07→20:05)
[2017-08-24] MEDS: SODIUM CHLORIDE 0.9% FLUSH 10 ML FLUSH IV FLUSH SCH ×2 (08:07→11:12)
[2017-08-24] MEDS: REMOVE OLD PATCH T-DERMAL SCH (08:08)
[2017-08-24] MEDS: NICOTINE 21 MG/24 HR PATCH T-DERMAL SCH (08:08)
--- NOTE | 2017-08-24 10:37 | HHI.PR ---
Subjective Remarks Nursing was at the bedside. The patient had a very active night secondary to alcohol withdrawal. She required multiple doses of IV Ativan and IM Haldol. The patient was lethargic on examination. She did not indicate any pain or discomfort. She continues to have significant diarrhea. Objective Vitals Vital Signs Date Time Temp Pulse Resp B/P (MAP) Pulse Ox O2 Delivery O2 Flow Rate FiO2 08/24/17 09:26 100 Nasal Cannula 2.00 08/24/17 04:00 124 08/24/17 04:00 98.1 124 52 116/82 (93) 94 08/24/17 02:00 130 08/24/17 00:00 98.5 82 13 106/87 (93) 95 08/24/17 00:00 82 08/23/17 22:00 111 08/23/17 20:00 98.3 124 25 133/85 (101) 91 08/23/17 20:00 124 08/23/17 18:00 147 08/23/17 18:00 147 25 118/92 (101) 100 08/23/17 17:00 147 29 116/87 (97) 08/23/17 17:00 147 08/23/17 16:00 105 08/23/17 16:00 98.8 105 22 130/93 (105) 08/23/17 15:00 105 08/23/17 15:00 105 14 118/89 (99) 99 08/23/17 14:00 114 08/23/17 14:00 114 26 132/88 (103) 99 08/23/17 13:00 108 24 123/92 (102) 94 08/23/17 13:00 108 08/23/17 12:01 116 26 117/81 (93) 100 08/23/17 12:01 116 08/23/17 12:00 98.7 112 26 117/81 (93) 98 08/23/17 12:00 112 08/23/17 11:00 115 28 125/91 (102) 100 08/23/17 11:00 115 I/O 08/23/17 08/23/17 08/23/17 08/24/17 08/24/17 08/24/17 07:00 15:00 23:00 07:00 15:00 23:00 Output Total 500 ml 500 ml Balance -500 ml -500 ml Stool Total 500 ml 500 ml # Voids 8 12 Result Diagram: 08/23/17 0755 08/23/17 2258 Imaging Last Impressions Abdomen/Pelvis CT 08/21/17 0000 Signed Impressions: Service Date/Time: Monday, August 21, 2017 06:57 - CONCLUSION: 1. Right middle lobe pneumonia with infiltrates right lower lobe and lingula as well. 2. Thickening of the transverse colon wall could be technical, however colitis is not excluded. Fernando Euceda MD Chest X-Ray 08/20/17 1728 Signed Impressions: Service Date/Time: Sunday, August 20, 2017 17:37 - CONCLUSION: Lingular and right middle lobe airspace disease suspected. Daniel Rai MD Objective Remarks GENERAL: No apparent distress. SKIN: No rashes, ecchymoses or lesions. Cool and dry. HEAD: Atraumatic. Normocephalic. EYES: Pupils equal round and reactive. ENT: Nose without bleeding, purulent drainage or septal hematoma.. Airway patent. NECK: Trachea midline. No JVD or lymphadenopathy. CARDIOVASCULAR: Regular rate and rhythm without murmurs, gallops or rubs. RESPIRATORY: Clear to auscultation. Breath sounds equal bilaterally. No wheezes , rales, or rhonchi. GASTROINTESTINAL: Abdomen soft, non-tender, nondistended. MUSCULOSKELETAL: Extremities without clubbing, cyanosis, or edema. NEUROLOGICAL: Lethargic. Motor and sensory grossly within normal limits. Five out of 5 muscle strength in all muscle groups. Procedures Colonoscopy 08/22 Medications and IVs Current Medications Medications (Trade) Dose Ordered Sig/Artis Route Start Time Stop Time Status Last Admin (NS Flush) 2 ml UNSCH PRN IV FLUSH 08/20/17 20:30 08/23/17 18:24 (NS Flush) 2 ml BID IV FLUSH 08/20/17 21:00 08/24/17 08:07 (Narcan Inj) 0.4 mg UNSCH PRN IV PUSH 08/20/17 20:30 (Romazicon Inj) 0.2 mg Q1M PRN IV PUSH 08/20/17 20:30 (Ativan) 1 mg Q4H PRN PO 08/20/17 20:30 08/20/17 23:57 (Ativan Inj) 1 mg Q4H PRN IV PUSH 08/20/17 20:30 08/23/17 09:42 (Ativan) 2 mg Q2H PRN PO 08/20/17 20:30 (Ativan Inj) 2 mg Q2H PRN IV PUSH 08/20/17 20:30 08/23/17 16:31 (Ativan Inj) 2 mg Q1H PRN IV PUSH 08/20/17 20:30 08/24/17 08:07 (Ativan Inj) 2 mg Q15M PRN IV PUSH 08/20/17 20:30 08/24/17 05:03 (Habitrol 21 Mg Patch.24 Hr) 1 patch DAILY T-DERMAL 08/21/17 13:00 08/24/17 08:08 Miscellaneous Information 1 DAILY T-DERMAL 08/22/17 09:00 08/24/17 08:08 Miscellaneous Information Patient in critical care unit? Ass... Q361D .XX 08/21/17 13:30 (Chlorhexidine 2% Cloth) 3 pack DAILY@04 TOPICAL 08/22/17 04:00 08/26/17 04:01 08/24/17 04:00 (Chlorhexidine 2% Cloth) 3 pack UNSCH PRN TOPICAL 08/21/17 13:30 08/26/17 13:29 (Roxicodone) 5 mg Q4H PRN PO 08/21/17 17:30 08/23/17 15:54 (Roxicodone) 10 mg Q4H PRN PO 08/21/17 17:30 08/22/17 22:47 Potassium Chloride 30 meq/ Dextrose/Sodium Chloride 1,015 ml @ 125 mls/hr Q8H8M IV 08/22/17 08:45 08/24/17 01:30 Potassium Chloride 100 ml @ 50 mls/hr Q2H PRN IV 08/22/17 08:45 Potassium Chloride 100 ml @ 50 mls/hr Q2H PRN IV 08/22/17 08:45 08/24/17 08:07 (K-Lyte Cl Eff) 50 meq UNSCH PRN PO 08/22/17 08:45 08/23/17 09:41 Potassium Chloride 100 ml @ 25 mls/hr UNSCH PRN IV 08/22/17 08:45 Potassium Chloride 100 ml @ 50 mls/hr Q2H PRN IV 08/22/17 08:45 Magnesium Sulfate 4 gm/Sodium Chloride 100 ml @ 50 mls/hr UNSCH PRN IV 08/22/17 08:45 (Mag-Ox) 800 mg UNSCH PRN PO 08/22/17 08:45 Magnesium Sulfate 2 gm/Sodium Chloride 100 ml @ 50 mls/hr UNSCH PRN IV 08/22/17 08:45 08/23/17 17:12 (K-Phos) 2,000 mg Q4H PRN PO 08/22/17 08:45 Sodium Phosphate 30 mmol/Sodium Chloride 250 ml @ 42 mls/hr UNSCH PRN IV 08/22/17 08:45 (K-Phos) 2,000 mg UNSCH PRN PO/TUBE 08/22/17 08:45 Potassium Phosphate 30 mmol/ Sodium Chloride 260 ml @ 42 mls/hr UNSCH PRN IV 08/22/17 08:45 Levofloxacin/ Dextrose 150 ml @ 100 mls/hr Q24H IV 08/22/17 14:00 08/23/17 14:27 Metronidazole 100 ml @ 100 mls/hr Q8H IV 08/22/17 15:00 08/24/17 08:07 (Haldol Inj) 2 mg Q15M PRN IM 08/23/17 21:30 08/24/17 08:07 A/P Problem List: (1) Leukocytosis ICD Code: D72.829 - Elevated white blood cell count, unspecified Status: Acute (2) Diarrhea ICD Code: R19.7 - Diarrhea, unspecified Status: Acute (3) Hypokalemia ICD Code: E87.6 - Hypokalemia Status: Acute (4) Hyponatremia ICD Code: E87.1 - Hypo-osmolality and hyponatremia Status: Acute Assessment and Plan Severe sepsis/ Lactic acidosis/ Acute diverticulitis The pt has diarrhea and right sided pneumonia. C diff negative. GI consult appreciated. Diverticulitis noted on colonoscopy. Pathology significant for adipose tissue. - changed antibiotics to IV Levaquin and Flagyl. - Blood and stool cultures are pending. NGTD. - IVFs. - telemetry. - diet per GI. - fecal collection bag as needed. - pain control as needed. Severe hypokalemia/ hyponatremia/ hypomagnesemia S/t diarrhea. Potassium 1.9, sodium 126 on admission. Improving. - Supplementation ordered, trend electrolytes closely, replace as needed. On ICU replacement protocol. - IVFs with KCl at 125 ml/hr. - telemetry. Tachycardia EKG shows sinus tachycardia. S/t sepsis and alcohol withdrawal. - Monitor telemetry. Stable. - Trend trops. EtOH withdrawal/ Anxiety Alcohol level elevated on admission. Currently withdrawing. - CIWA protocol. - Seizure precautions. - cessation instruction. - Supportive care. Hypoglycemia S/t decreased PO intake. - IVFs with D5. DVT prophylaxis: SCDs Discharge Planning Keep in ICU until alcohol withdrawal improves Problem Qualifiers (1) Leukocytosis: Qualified Codes: D72.829 - Elevated white blood cell count, unspecified (2) Diarrhea: Qualified Codes: R19.7 - Diarrhea, unspecified Will Gunn DO Aug 24, 2017 10:37
--- NOTE | 2017-08-24 11:17 | EKG ---
Date Performed: 08/23/2017 Time Performed: 19:08:25 PTAGE: 47 years EKG: Sinus rhythm LOW QRS VOLTAGE IN EXTREMITY LEADS BORDERLINE ECG PREVIOUS TRACING : 08/20/2017 19.39 Since the previous tracing, no significant change noted DOCTOR: Mitchell Walls Interpretating Date/Time 08/24/2017 11:12:25
[2017-08-24 12:49] LABS: HEMATOCRIT 32.2 % (35.0-46.0); HEMOGLOBIN 10.9 GM/DL (11.6-15.3); MEAN CELL VOLUME 107.2 FL (80.0-100.0); MEAN CORPUSCULAR HEMOGLOBIN 36.2 PG (27.0-34.0); MEAN CORPUSCULAR HGB CONC 33.7 % (32.0-36.0); PLATELET COUNT 151 TH/MM3 (150-450); RED CELL DISTRIBUTION WIDTH 15.3 % (11.6-17.2); WHITE BLOOD COUNT 7.8 TH/MM3 (4.0-11.0)
[2017-08-24 13:22] LABS: BLOOD UREA NITROGEN LESS THAN 1 MG/DL (7-18); CALCIUM 7.2 MG/DL (8.5-10.1); CHLORIDE 111 MEQ/L (98-107); CREATININE 0.27 MG/DL (0.50-1.00); GLOMERULAR FILTRATION RATE 269 ML/MIN (>89); GLUCOSE,RANDOM 108 MG/DL (74-106); MAGNESIUM 1.2 MG/DL (1.5-2.5); SODIUM (NA) 142 MEQ/L (136-145); TROPONIN I 0.04 NG/ML (0.02-0.05)
[2017-08-24 13:35] LABS: CALCIUM-PROTEIN CORRECTED 7.9 MG/DL (8.5-10.1); TOTAL PROTEIN 5.7 GM/DL (6.4-8.2)
--- NOTE | 2017-08-24 14:26 | HHI.GIFU ---
Subjective Remarks pt resting in bed, in soft restraints. still with copious liquid stool. (Camilla Vega) Objective Vitals I&O Vital Signs Date Time Temp Pulse Resp B/P (MAP) Pulse Ox O2 Delivery O2 Flow Rate FiO2 08/24/17 09:26 100 Nasal Cannula 2.00 08/24/17 04:00 124 08/24/17 04:00 98.1 124 52 116/82 (93) 94 08/24/17 02:00 130 08/24/17 00:00 98.5 82 13 106/87 (93) 95 08/24/17 00:00 82 08/23/17 22:00 111 08/23/17 20:00 98.3 124 25 133/85 (101) 91 08/23/17 20:00 124 08/23/17 18:00 147 08/23/17 18:00 147 25 118/92 (101) 100 08/23/17 17:00 147 29 116/87 (97) 08/23/17 17:00 147 08/23/17 16:00 105 08/23/17 16:00 98.8 105 22 130/93 (105) 08/23/17 15:00 105 08/23/17 15:00 105 14 118/89 (99) 99 I/O 08/23/17 08/23/17 08/23/17 08/24/17 08/24/17 08/24/17 07:00 15:00 23:00 07:00 15:00 23:00 Output Total 500 ml 500 ml Balance -500 ml -500 ml Stool Total 500 ml 500 ml # Voids 8 12 Laboratory Laboratory Tests Test 08/23/17 22:58 08/24/17 12:35 Blood Urea Nitrogen LESS THAN 1 LESS THAN 1 Creatinine 0.23 0.27 Random Glucose 93 108 Calcium Level 7.7 7.2 Phosphorus Level 2.5 Magnesium Level 1.4 1.2 Sodium Level 140 142 Potassium Level 3.0 4.1 Chloride Level 108 111 Carbon Dioxide Level 21.6 23.0 Anion Gap 10 8 Estimat Glomerular Filtration Rate 324 269 Lactic Acid Level 1.2 Troponin I 0.03 0.03 White Blood Count 7.8 Red Blood Count 3.00 Hemoglobin 10.9 Hematocrit 32.2 Mean Corpuscular Volume 107.2 Mean Corpuscular Hemoglobin 36.2 Mean Corpuscular Hemoglobin Concent 33.7 Red Cell Distribution Width 15.3 Platelet Count 151 Mean Platelet Volume 8.0 Total Protein 5.7 Protein Corrected Calcium 7.9 Date/Time Source Procedure Growth Status 08/20/17 20:00 Blood Peripheral Aerobic Blood Culture - Preliminary NO GROWTH IN 4 DAYS Resulted 08/20/17 20:00 Blood Peripheral Anaerobic Blood Culture - Preliminary NO GROWTH IN 4 DAYS Resulted 08/21/17 07:45 Stool Stool Cryptosporidium Exam - Final NEGATIVE - NO CRYPTOSPORIDIUM ANTIGEN... Complete 08/21/17 07:45 Stool Stool Giardia Antigen (CARTER) - Final NEGATIVE - NO GIARDIA ANTIGEN DETECTE... Complete Imaging Laboratory Tests Test 08/20/17 17:55 08/20/17 21:00 08/21/17 07:45 08/21/17 09:00 Prothrombin Time 14.0 SEC Prothromb Time International Ratio 1.4 RATIO Activated Partial Thromboplast Time 30.8 SEC Total Creatine Kinase 103 U/L Creatine Kinase MB 0.9 NG/ML Ethyl Alcohol Level 285 MG/DL Urine Color YELLOW Urine Turbidity CLEAR Urine pH 6.0 Urine Specific [place] 1.007 Urine Protein NEG mg/dL Urine Glucose (UA) NEG mg/dL Urine Ketones NEG mg/dL Urine Occult Blood NEG Urine Nitrite NEG Urine Bilirubin NEG Urine Urobilinogen LESS THAN 2.0 MG/DL Urine Leukocyte Esterase NEG Urine WBC 2 /hpf Urine Squamous Epithelial Cells 6 /hpf Microscopic Urinalysis Comment CULT NOT INDICATED Stool C. difficile Toxin (PCR) NEGATIVE Stl C. difficile Toxin Epiderm 027 PRESUMPTIVE NEGATIVE Neutrophils (%) (Auto) 89.3 % Lymphocytes (%) (Auto) 4.7 % Monocytes (%) (Auto) 5.7 % Eosinophils (%) (Auto) 0.0 % Basophils (%) (Auto) 0.3 % Neutrophils # (Auto) 11.8 TH/MM3 Lymphocytes # (Auto) 0.6 TH/MM3 Monocytes # (Auto) 0.8 TH/MM3 Eosinophils # (Auto) 0.0 TH/MM3 Basophils # (Auto) 0.0 TH/MM3 CBC Comment DIFF FINAL Differential Comment Test 08/21/17 10:15 08/21/17 11:03 08/23/17 22:58 08/24/17 12:35 Total Bilirubin 1.3 MG/DL Direct Bilirubin 0.5 MG/DL Indirect Bilirubin 0.8 MG/DL Aspartate Amino Transf (AST/SGOT) 99 U/L Alanine Aminotransferase (ALT/SGPT) 31 U/L Alkaline Phosphatase 247 U/L Albumin 2.2 GM/DL Nasal Screen MRSA (PCR) MRSA NOT DETECTED Lactic Acid Level 1.2 mmol/L Blood Urea Nitrogen LESS THAN 1 MG/DL LESS THAN 1 MG/DL Creatinine 0.23 MG/DL 0.27 MG/DL Random Glucose 93 MG/DL 108 MG/DL Calcium Level 7.7 MG/DL 7.2 MG/DL Phosphorus Level 2.5 MG/DL Magnesium Level 1.4 MG/DL 1.2 MG/DL Sodium Level 140 MEQ/L 142 MEQ/L Potassium Level 3.0 MEQ/L 4.1 MEQ/L Chloride Level 108 MEQ/L 111 MEQ/L Carbon Dioxide Level 21.6 MEQ/L 23.0 MEQ/L White Blood Count 7.8 TH/MM3 Red Blood Count 3.00 MIL/MM3 Hemoglobin 10.9 GM/DL Hematocrit 32.2 % Mean Corpuscular Volume 107.2 FL Mean Corpuscular Hemoglobin 36.2 PG Mean Corpuscular Hemoglobin Concent 33.7 % Red Cell Distribution Width 15.3 % Platelet Count 151 TH/MM3 Mean Platelet Volume 8.0 FL Total Protein 5.7 GM/DL Anion Gap 8 MEQ/L Estimat Glomerular Filtration Rate 269 ML/MIN Protein Corrected Calcium 7.9 MG/DL Troponin I 0.03 NG/ML Physical Exam HEENT: Normocephalic; atraumatic CHEST: Even/unlabored CARDIAC: RRR ABDOMEN: Soft, mildly distended, nontender; bowel sounds active EXTREMITIES: No clubbing, cyanosis, or edema. SKIN: Normal; no rash; no jaundice. AUTOMATED WEAVER: asleep, did not rouse to exam (Camilla Vega) Assessment and Plan Plan ASSESSMENT - diarrhea - 2 weeks of watery nearly neon yellow, yellow staining stool. intermittent lower abd cramping, intermittent epigastric pain. limited hx. never had EGD or colonoscopy. CT showed fatty liver, PNA, poss transverse colitis initially refused colonoscopy and now agrees - coagulopathy - INR 1.4 suspect some degree of liver dz. has spider angiomas , liver feels enlarged - leukocytosis - could be 2/2 diarrhea. stool cx pending. afebrile (08/23) --> Pt reports continued diarrhea- approx 5-6 a day. S/P colonoscopy yesterday --> Mild diverticulosis in sigmoid colon. Diffuse circumferential colitis in the ascending colon at the cecum. Mucosa was atrophic, friable and erythematous. Small sessile polyp, ranging between 3-5 mm in size, polypectomy. Stool studies negative. 08/24/17 path colon tubular adenoma. still wtih copious loose stool but it does appear less watery and clear than before. stools studies neg thus far, c diff neg. PLAN - trial cholestyramine - Levaquin - Flagyl - Repeat LFTs - Further recommendations based on clinical course and results of above Pt has been seen and examined by myself and Dr. Vega and this note is written on his behalf (Camilla Vega) Physician Comments As above, will follow up with you. (Roselia Vega MD) Camilla Vega Aug 24, 2017 14:26 Roselia Vega MD Aug 24, 2017 14:54
[2017-08-24] MEDS: LEVOFLOXACIN 750 MG PREMIX INJ 150 ML IV SCH (14:38)
[2017-08-24] MEDS: MAGNESIUM SULFATE INJ 2 GM in SODIUM CHLORIDE 0.9% INJ 96 ML IV PRN (18:01)
[2017-08-24] MEDS ORDERED: CALCIUM GLUCONATE INJ 2 GM in DEXTROSE 5% IN WATER 100ML INJ 100 ML IV ONE ×2 (18:15)
[2017-08-24 18:46] LABS: BLOOD UREA NITROGEN LESS THAN 1 MG/DL (7-18); CALCIUM 7.3 MG/DL (8.5-10.1); CHLORIDE 114 MEQ/L (98-107); CREATININE 0.39 MG/DL (0.50-1.00); GLOMERULAR FILTRATION RATE 176 ML/MIN (>89); GLUCOSE,RANDOM 92 MG/DL (74-106); MAGNESIUM 1.1 MG/DL (1.5-2.5); SODIUM (NA) 141 MEQ/L (136-145)
[2017-08-24 19:04] LABS: CALCIUM-PROTEIN CORRECTED 8.3 MG/DL (8.5-10.1); TOTAL PROTEIN 5.2 GM/DL (6.4-8.2)
[2017-08-24] MEDS: CHOLESTYRAMINE 4 GM PACKET PO SCH (20:02)
[2017-08-24] MEDS: LORazepam 2 MG TAB PO PRN (20:02)
[2017-08-25] VITALS (14 sets, daily range): BP systolic 94–116; BP diastolic 60–87; PULSE 95–146; RESP 17–36; TEMP 97.5–98.9; O2SAT 93–97
[2017-08-25] MEDS: CHLORHEXIDINE GLUCONATE 2 % 1 PACK (2 CLOTHS)(taper/protocol) TOPICAL SCH (02:19)
[2017-08-25] MEDS: LORazepam 2 MG/ML VIAL IV PUSH PRN ×2 (02:19→11:41)
[2017-08-25] MEDS: POTASSIUM CHLORIDE INJ 30 MEQ in DEXT 5%-NACL 0.9% 1000 ML INJ 1,000 ML IV SCH ×3 (05:34→18:37)
[2017-08-25] MEDS: metroNIDAZOLE 500 MG INJ 100 ML IV SCH ×3 (05:34→21:12)
[2017-08-25 07:18] LABS: HEMATOCRIT 27.3 % (35.0-46.0); HEMOGLOBIN 9.2 GM/DL (11.6-15.3); MEAN CELL VOLUME 109.4 FL (80.0-100.0); MEAN CORPUSCULAR HGB CONC 33.9 % (32.0-36.0); MEAN PLATELET VOLUME 7.8 FL (7.0-11.0); PLATELET COUNT 138 TH/MM3 (150-450); RED BLOOD COUNT 2.49 MIL/MM3 (4.00-5.30); RED CELL DISTRIBUTION WIDTH 15.6 % (11.6-17.2); WHITE BLOOD COUNT 6.3 TH/MM3 (4.0-11.0)
[2017-08-25 07:47] LABS: ALBUMIN 1.7 GM/DL (3.4-5.0); ALKALINE PHOSPHATASE 146 U/L (45-117); ALT (GPT) 21 U/L (10-53); AST (GOT) 54 U/L (15-37); BICARBONATE 18.4 MEQ/L (21.0-32.0); BLOOD UREA NITROGEN LESS THAN 1 MG/DL (7-18); CHLORIDE 115 MEQ/L (98-107); CREATININE 0.32 MG/DL (0.50-1.00); DIRECT BILIRUBIN ADULT 0.4 MG/DL (0.0-0.2); GLOMERULAR FILTRATION RATE 221 ML/MIN (>89); GLUCOSE,RANDOM 105 MG/DL (74-106); INDIRECT BILIRUBIN 0.2 MG/DL (0.0-0.8); MAGNESIUM 1.4 MG/DL (1.5-2.5); PHOSPHORUS 1.7 MG/DL (2.5-4.9); SODIUM (NA) 144 MEQ/L (136-145); TOTAL BILIRUBIN ADULT 0.6 MG/DL (0.2-1.0)
[2017-08-25 07:59] LABS: TOTAL PROTEIN 4.8 GM/DL (6.4-8.2)
[2017-08-25 08:00] LABS: CALCIUM 7.3 MG/DL (8.5-10.1); CALCIUM-PROTEIN CORRECTED 8.6 MG/DL (8.5-10.1)
[2017-08-25] MEDS: REMOVE OLD PATCH T-DERMAL SCH (09:00)
[2017-08-25] MEDS: CHOLESTYRAMINE 4 GM PACKET PO SCH ×2 (09:31→21:12)
[2017-08-25] MEDS: SODIUM CHLORIDE 0.9% FLUSH 10 ML FLUSH IV FLUSH SCH ×2 (09:31→21:11)
[2017-08-25] MEDS: NICOTINE 21 MG/24 HR PATCH T-DERMAL SCH (09:32)
[2017-08-25] MEDS: LORazepam 2 MG TAB PO PRN ×4 (09:34→23:59)
[2017-08-25] MEDS ORDERED: RESP: ALBUTEROL 2.5 MG/IPRATROPIUM 0.5 MG NEB (PRN) NEB (10:30)
--- NOTE | 2017-08-25 11:02 | HHI.PR ---
Subjective Remarks The patient's family was at the bedside. Apparently the patient has been falling down a lot at home. The patient has been having some shortness of breath. The patient was still pretty shaky. She wanted to know why. Discussed with nursing at the bedside. Objective Vitals Vital Signs Date Time Temp Pulse Resp B/P (MAP) Pulse Ox O2 Delivery O2 Flow Rate FiO2 08/25/17 10:00 125 36 103/69 (80) 93 08/25/17 10:00 125 08/25/17 09:52 94 Nasal Cannula 3.00 08/25/17 09:00 95 26 106/82 (90) 96 08/25/17 08:00 99 08/25/17 08:00 98 Nasal Cannula 2.00 08/25/17 08:00 98.6 99 25 105/80 (88) 94 08/25/17 06:00 109 08/25/17 04:00 106 08/25/17 04:00 98.9 106 22 97/68 (78) 95 08/25/17 02:00 98 08/25/17 00:00 96 08/25/17 00:00 97.5 96 17 116/75 (89) 94 08/24/17 22:00 122 08/24/17 20:00 98.0 113 23 106/77 (87) 95 08/24/17 20:00 113 08/24/17 19:00 98 Nasal Cannula 2.00 08/24/17 18:00 113 08/24/17 18:00 113 23 118/75 (89) 97 08/24/17 17:00 95 08/24/17 17:00 95 14 97/73 (81) 100 08/24/17 16:00 97.7 80 18 106/75 (85) 100 08/24/17 16:00 80 08/24/17 15:00 88 08/24/17 15:00 88 14 105/73 (84) 100 08/24/17 14:00 104 22 114/87 (96) 100 08/24/17 14:00 104 08/24/17 13:00 81 14 99/74 (82) 100 08/24/17 13:00 81 08/24/17 12:00 110 18 113/80 (91) 100 08/24/17 12:00 110 3/16/18 11:00 84 08/24/17 11:00 84 15 117/75 (89) 100 I/O 08/24/17 08/24/17 08/24/17 08/25/17 08/25/17 08/25/17 07:00 15:00 23:00 07:00 15:00 23:00 Intake Total 1895 ml 1375 ml Output Total 100 ml 625 ml Balance -100 ml 1895 ml 750 ml Intake Oral 360 ml IV Total 1895 ml 1015 ml Output Urine Total 425 ml Stool Total 100 ml 200 ml # Voids 8 Result Diagram: 08/25/17 0511 08/25/17 0511 Imaging Last Impressions Abdomen/Pelvis CT 08/21/17 0000 Signed Impressions: Service Date/Time: Monday, August 21, 2017 06:57 - CONCLUSION: 1. Right middle lobe pneumonia with infiltrates right lower lobe and lingula as well. 2. Thickening of the transverse colon wall could be technical, however colitis is not excluded. Fernando Euceda MD Chest X-Ray 08/20/17 [id number] Signed Impressions: Service Date/Time: Sunday, August 20, 2017 17:37 - CONCLUSION: Lingular and right middle lobe airspace disease suspected. Daniel Rai MD Objective Remarks GENERAL: No apparent distress. SKIN: No rashes, ecchymoses or lesions. Cool and dry. HEAD: Atraumatic. Normocephalic. EYES: Pupils equal round and reactive. ENT: Nose without bleeding, purulent drainage or septal hematoma.. Airway patent. NECK: Trachea midline. No JVD or lymphadenopathy. CARDIOVASCULAR: Tachycardic without murmurs, gallops or rubs. RESPIRATORY: Clear to auscultation. Breath sounds equal bilaterally. No wheezes , rales, or rhonchi. GASTROINTESTINAL: Abdomen soft, non-tender, nondistended. MUSCULOSKELETAL: Extremities without clubbing, cyanosis, or edema. NEUROLOGICAL: Lethargic. Motor and sensory grossly within normal limits. Five out of 5 muscle strength in all muscle groups. Tremulous. PSYCH: Flat affect. Procedures Colonoscopy 08/22 Medications and IVs Current Medications Medications (Trade) Dose Ordered Sig/Artis Route Start Time Stop Time Status Last Admin (NS Flush) 2 ml UNSCH PRN IV FLUSH 08/20/17 20:30 08/23/17 18:24 (NS Flush) 2 ml BID IV FLUSH 08/20/17 21:00 08/25/17 09:31 (Narcan Inj) 0.4 mg UNSCH PRN IV PUSH 08/20/17 20:30 (Romazicon Inj) 0.2 mg Q1M PRN IV PUSH 08/20/17 20:30 (Ativan) 1 mg Q4H PRN PO 08/20/17 20:30 08/20/17 23:57 (Ativan Inj) 1 mg Q4H PRN IV PUSH 08/20/17 20:30 08/23/17 09:42 (Ativan) 2 mg Q2H PRN PO 08/20/17 20:30 08/25/17 09:34 (Ativan Inj) 2 mg Q2H PRN IV PUSH 08/20/17 20:30 08/25/17 02:19 (Ativan Inj) 2 mg Q1H PRN IV PUSH 08/20/17 20:30 08/24/17 08:07 (Ativan Inj) 2 mg Q15M PRN IV PUSH 08/20/17 20:30 08/24/17 05:03 (Habitrol 21 Mg Patch.24 Hr) 1 patch DAILY T-DERMAL 08/21/17 13:00 08/25/17 09:32 Miscellaneous Information 1 DAILY T-DERMAL 08/22/17 09:00 08/24/17 08:08 Miscellaneous Information Patient in critical care unit? Ass... [id number] .XX 08/21/17 13:30 (Chlorhexidine 2% Cloth) 3 pack DAILY@04 TOPICAL 08/22/17 04:00 08/26/17 04:01 08/24/17 04:00 (Chlorhexidine 2% Cloth) 3 pack UNSCH PRN TOPICAL 08/21/17 13:30 08/26/17 13:29 (Roxicodone) 5 mg Q4H PRN PO 08/21/17 17:30 08/23/17 15:54 (Roxicodone) 10 mg Q4H PRN PO 08/21/17 17:30 08/22/17 22:47 Potassium Chloride 30 meq/ Dextrose/Sodium Chloride 1,015 ml @ 125 mls/hr Q8H8M IV 08/22/17 08:45 08/25/17 05:34 Potassium Chloride 100 ml @ 50 mls/hr Q2H PRN IV 08/22/17 08:45 Potassium Chloride 100 ml @ 50 mls/hr Q2H PRN IV 08/22/17 08:45 08/24/17 08:07 (K-Lyte Cl Eff) 50 meq UNSCH PRN PO 08/22/17 08:45 08/23/17 09:41 Potassium Chloride 100 ml @ 25 mls/hr UNSCH PRN IV 08/22/17 08:45 Potassium Chloride 100 ml @ 50 mls/hr Q2H PRN IV 08/22/17 08:45 Magnesium Sulfate 4 gm/Sodium Chloride 100 ml @ 50 mls/hr UNSCH PRN IV 08/22/17 08:45 (Mag-Ox) 800 mg UNSCH PRN PO 08/22/17 08:45 Magnesium Sulfate 2 gm/Sodium Chloride 100 ml @ 50 mls/hr UNSCH PRN IV 08/22/17 08:45 08/24/17 18:01 (K-Phos) 2,000 mg Q4H PRN PO 08/22/17 08:45 Sodium Phosphate 30 mmol/Sodium Chloride 250 ml @ 42 mls/hr UNSCH PRN IV 08/22/17 08:45 (K-Phos) 2,000 mg UNSCH PRN PO/TUBE 08/22/17 08:45 Potassium Phosphate 30 mmol/ Sodium Chloride 260 ml @ 42 mls/hr UNSCH PRN IV 08/22/17 08:45 Levofloxacin/ Dextrose 150 ml @ 100 mls/hr Q24H IV 08/22/17 14:00 08/24/17 14:38 Metronidazole 100 ml @ 100 mls/hr Q8H IV 08/22/17 15:00 08/25/17 05:34 (Haldol Inj) 2 mg Q15M PRN IM 08/23/17 21:30 08/24/17 15:52 (Questran 4 Gm Pkt) 4 gm Q12HR PO 08/24/17 21:00 08/25/17 09:31 (SoluMEDROL INJ) 40 mg Q8HR IV PUSH 08/25/17 10:30 (Duoneb Neb) 1 ampule Q2HR NEB PRN NEB 08/25/17 10:30 (Duoneb Neb) 1 ampule Q6HR WHILE AWAKE NEB NEB 08/25/17 10:30 A/P Problem List: (1) Leukocytosis ICD Code: D72.829 - Elevated white blood cell count, unspecified Status: Acute (2) Diarrhea ICD Code: R19.7 - Diarrhea, unspecified Status: Acute (3) Hypokalemia ICD Code: E87.6 - Hypokalemia Status: Acute (4) Hyponatremia ICD Code: E87.1 - Hypo-osmolality and hyponatremia Status: Acute Assessment and Plan Severe sepsis/ Lactic acidosis/ Acute diverticulitis The pt has diarrhea and right sided pneumonia. C diff negative. GI consult appreciated. Diverticulitis noted on colonoscopy. Pathology significant for adipose tissue. - changed antibiotics to IV Levaquin and Flagyl. - Blood and stool cultures are pending. NGTD. - IVFs. - telemetry. - diet per GI. Still on full liquids. - fecal collection bag as needed. - pain control as needed. Severe hypokalemia/ hyponatremia/ hypomagnesemia S/t diarrhea. Potassium 1.9, sodium 126 on admission. Improving. - Supplementation ordered, trend electrolytes closely, replace as needed. On ICU replacement protocol. - IVFs with KCl at 125 ml/hr. - telemetry. Tachycardia EKG shows sinus tachycardia. S/t sepsis and alcohol withdrawal. Trops flat. - Monitor telemetry. - start standing Librium. - IVFs. EtOH withdrawal/ Anxiety Alcohol level elevated on admission. Currently withdrawing. - CIWA protocol. Librium 25 mg q8h added. - Seizure precautions. - cessation instruction. - Supportive care. Hypoglycemia S/t decreased PO intake. - IVFs with D5. Anemia Likely large component is dilutional. MCV is elevated suggesting possible bone marrow suppression s/t alcohol abuse. - continue to monitor CBC. DVT prophylaxis: SCDs, Lovenox Discharge Planning Keep in ICU until alcohol withdrawal improves Problem Qualifiers (1) Leukocytosis: Qualified Codes: D72.829 - Elevated white blood cell count, unspecified (2) Diarrhea: Qualified Codes: R19.7 - Diarrhea, unspecified Will Gunn DO Aug 25, 2017 11:02
--- NOTE | 2017-08-25 11:05 | HHI.GIFU ---
Subjective Remarks No nausea vomiting Drowsy responds to simple stimuli and questions Abdomen remains taut, Minor icteric urine Rose continues to drain dark liquid stool, (Rozina Peña) Objective Vitals I&O Vital Signs Date Time Temp Pulse Resp B/P (MAP) Pulse Ox O2 Delivery O2 Flow Rate FiO2 08/25/17 10:00 125 36 103/69 (80) 93 08/25/17 10:00 125 08/25/17 09:52 94 Nasal Cannula 3.00 08/25/17 09:00 95 26 106/82 (90) 96 08/25/17 08:00 99 08/25/17 08:00 98 Nasal Cannula 2.00 08/25/17 08:00 98.6 99 25 105/80 (88) 94 08/25/17 06:00 109 08/25/17 04:00 106 08/25/17 04:00 98.9 106 22 97/68 (78) 95 08/25/17 02:00 98 08/25/17 00:00 96 08/25/17 00:00 97.5 96 17 116/75 (89) 94 08/24/17 22:00 122 08/24/17 20:00 98.0 113 23 106/77 (87) 95 08/24/17 20:00 113 08/24/17 19:00 98 Nasal Cannula 2.00 08/24/17 18:00 113 08/24/17 18:00 113 23 118/75 (89) 97 08/24/17 17:00 95 08/24/17 17:00 95 14 97/73 (81) 100 08/24/17 16:00 97.7 80 18 106/75 (85) 100 08/24/17 16:00 80 08/24/17 15:00 88 08/24/17 15:00 88 14 105/73 (84) 100 08/24/17 14:00 104 22 114/87 (96) 100 08/24/17 14:00 104 08/24/17 13:00 81 14 99/74 (82) 100 08/24/17 13:00 81 08/24/17 12:00 110 18 113/80 (91) 100 08/24/17 12:00 110 I/O 08/24/17 08/24/17 08/24/17 08/25/17 3/17/18 3/17/18 07:00 15:00 23:00 07:00 15:00 23:00 Intake Total 1895 ml 1375 ml Output Total 100 ml 625 ml Balance -100 ml 1895 ml 750 ml Intake Oral 360 ml IV Total 1895 ml 1015 ml Output Urine Total 425 ml Stool Total 100 ml 200 ml # Voids 8 Laboratory Laboratory Tests Test 08/24/17 12:35 08/24/17 17:58 08/25/17 05:11 White Blood Count 7.8 6.3 Red Blood Count 3.00 2.49 Hemoglobin 10.9 9.2 Hematocrit 32.2 27.3 Mean Corpuscular Volume 107.2 109.4 Mean Corpuscular Hemoglobin 36.2 37.0 Mean Corpuscular Hemoglobin Concent 33.7 33.9 Red Cell Distribution Width 15.3 15.6 Platelet Count 151 138 Mean Platelet Volume 8.0 7.8 Blood Urea Nitrogen LESS THAN 1 LESS THAN 1 LESS THAN 1 Creatinine 0.27 0.39 0.32 Random Glucose 108 92 105 Total Protein 5.7 5.2 4.8 Calcium Level 7.2 7.3 7.3 Magnesium Level 1.2 1.1 1.4 Sodium Level 142 141 144 Potassium Level 4.1 4.2 3.7 Chloride Level 111 114 115 Carbon Dioxide Level 23.0 18.0 18.4 Anion Gap 8 9 11 Estimat Glomerular Filtration Rate 269 176 221 Protein Corrected Calcium 7.9 8.3 8.6 Troponin I 0.03 Albumin 1.7 Phosphorus Level 1.7 Alkaline Phosphatase 146 Aspartate Amino Transf (AST/SGOT) 54 Alanine Aminotransferase (ALT/SGPT) 21 Total Bilirubin 0.6 Direct Bilirubin 0.4 Indirect Bilirubin 0.2 Date/Time Source Procedure Growth Status 08/20/17 20:00 Blood Peripheral Aerobic Blood Culture - Preliminary NO GROWTH IN 4 DAYS Resulted 08/20/17 20:00 Blood Peripheral Anaerobic Blood Culture - Preliminary NO GROWTH IN 4 DAYS Resulted 08/21/17 07:45 Stool Stool Cryptosporidium Exam - Final NEGATIVE - NO CRYPTOSPORIDIUM ANTIGEN... Complete 08/21/17 07:45 Stool Stool Giardia Antigen (CARTER) - Final NEGATIVE - NO GIARDIA ANTIGEN DETECTE... Complete Imaging Last Impressions Abdomen/Pelvis CT 08/21/17 0000 Signed Impressions: Service Date/Time: Monday, August 21, 2017 06:57 - CONCLUSION: 1. Right middle lobe pneumonia with infiltrates right lower lobe and lingula as well. 2. Thickening of the transverse colon wall could be technical, however colitis is not excluded. Fernando Euceda MD Chest X-Ray 08/20/17 0818 Signed Impressions: Service Date/Time: Sunday, August 20, 2017 17:37 - CONCLUSION: Lingular and right middle lobe airspace disease suspected. Daniel Rai MD Physical Exam HEENT: Normocephalic; atraumatic CHEST: Even/unlabored no obvious rhonchi CARDIAC: RRR ABDOMEN: taut, mildly distended, nontender; bowel sounds active, no nausea or vomiting EXTREMITIES: No clubbing, cyanosis, or edema. SKIN: Normal; no rash; no jaundice. SPOON MAKER: Drowsy but did arouse to simple questions (Rozina Peña) Assessment and Plan Plan ASSESSMENT - diarrhea - 2 weeks of watery nearly neon yellow, yellow staining stool. intermittent lower abd cramping, intermittent epigastric pain. limited hx. never had EGD or colonoscopy. CT showed fatty liver, PNA, poss transverse colitis initially refused colonoscopy and now agrees - coagulopathy - INR 1.4 suspect some degree of liver dz. has spider angiomas , liver feels enlarged - leukocytosis - could be 2/2 diarrhea. stool cx pending. afebrile (08/23) --> Pt reports continued diarrhea- approx 5-6 a day. S/P colonoscopy yesterday --> Mild diverticulosis in sigmoid colon. Diffuse circumferential colitis in the ascending colon at the cecum. Mucosa was atrophic, friable and erythematous. Small sessile polyp, ranging between 3-5 mm in size, polypectomy. Stool studies negative. 08/24/17 path colon tubular adenoma. still wtih copious loose stool but it does appear less watery and clear than before. stools studies neg thus far, c diff neg. 08/25/17, continues with rectal Rose, dark liquid stool, previous CT showed possible colitis, urine is dark icteric color, denies any nausea or vomiting. Hemoglobin stable at 9.2 without obvious bleeding Labs alkaline phosphatase 146, AST 54, ALT 21 PLAN - Diet full liquid for now, drinking minimal amounts - Continue cholestyramine - IV steroids - Levaquin - Flagyl - Monitor labs and any acute bleeding - Further recommendations based on clinical course and results of above, so far continue current regimen Pt has been seen and examined by myself and Dr. Vega and this note is written on his behalf (Rozina Peña) Physician Comments Agree with above assessment and plan. Will follow up with you. (Roselia Vega MD) Rozina Peña Aug 25, 2017 11:05 Roselia Vega MD Aug 25, 2017 22:40
--- NOTE | 2017-08-25 11:11 | RADRPT ---
EXAM DATE/TIME: 08/25/2017 10:54 [facility] COMPARISON: No previous studies available for comparison. INDICATIONS : Shortness of breath. MEDICAL HISTORY : Hypertension. Asthma, Substance abuse. SURGICAL HISTORY : None. ENCOUNTER: Subsequent ACUITY: 2 days PAIN SCORE: 0/10 LOCATION: Bilateral chest FINDINGS: Single upright view of the chest demonstrates mild volume loss within the left hemithorax with an are a of ill-defined airspace opacity concerning for pneumonia within the lung base. Right hemithorax is clear. Heart size is normal. Osseous structures are intact. CONCLUSION: Concern for pneumonia within the basal aspect of the left upper lung. Felicity Willis MD on August 25, 2017 at 11:08 Board Certified Radiologist. This report was verified electronically.
[2017-08-25] MEDS: RESP: ALBUTEROL 2.5 MG/IPRATROPIUM 0.5 MG NEB (SCH) NEB ×3 (11:20→20:34)
[2017-08-25] MEDS: methylPREDNISolone SOD SUCC 40 MG/1 ML VIAL IV PUSH SCH ×2 (11:41→21:12)
[2017-08-25] MEDS: ENOXAPARIN SODIUM 30 MG/0.3 ML SYRINGE SQ SCH (11:42)
[2017-08-25] MEDS: chlordiazePOXIDE 25 MG CAP PO SCH ×3 (11:42→18:37)
[2017-08-25] MEDS: LEVOFLOXACIN 750 MG PREMIX INJ 150 ML IV SCH (13:33)
[2017-08-25] MEDS: LORazepam 1 MG TAB PO PRN (18:37)
[2017-08-26] VITALS (14 sets, daily range): BP systolic 102–127; BP diastolic 66–93; PULSE 92–124; RESP 19–28; TEMP 98–98.5; O2SAT 97–100
[2017-08-26] MEDS: CHLORHEXIDINE GLUCONATE 2 % 1 PACK (2 CLOTHS)(taper/protocol) TOPICAL SCH (02:31)
[2017-08-26] MEDS: LORazepam 1 MG TAB PO PRN ×3 (02:32→18:09)
[2017-08-26] MEDS: POTASSIUM CHLORIDE INJ 30 MEQ in DEXT 5%-NACL 0.9% 1000 ML INJ 1,000 ML IV SCH ×3 (02:32→18:09)
[2017-08-26] MEDS: methylPREDNISolone SOD SUCC 40 MG/1 ML VIAL IV PUSH SCH ×3 (05:36→20:28)
[2017-08-26] MEDS: metroNIDAZOLE 500 MG INJ 100 ML IV SCH ×3 (05:36→23:09)
[2017-08-26] MEDS: RESP: ALBUTEROL 2.5 MG/IPRATROPIUM 0.5 MG NEB (SCH) NEB ×3 (08:49→21:05)
[2017-08-26] MEDS: REMOVE OLD PATCH T-DERMAL SCH (09:00)
[2017-08-26] MEDS: NICOTINE 21 MG/24 HR PATCH T-DERMAL SCH (09:27)
[2017-08-26] MEDS: chlordiazePOXIDE 25 MG CAP PO SCH ×3 (09:28→18:09)
[2017-08-26] MEDS: CHOLESTYRAMINE 4 GM PACKET PO SCH ×3 (09:28→18:09)
[2017-08-26] MEDS: SODIUM CHLORIDE 0.9% FLUSH 10 ML FLUSH IV FLUSH SCH ×2 (09:33→20:28)
[2017-08-26] MEDS: LORazepam 2 MG/ML VIAL IV PUSH PRN ×3 (09:46→22:00)
[2017-08-26 10:00] LABS: HEMATOCRIT 30.7 % (35.0-46.0); HEMOGLOBIN 10.3 GM/DL (11.6-15.3); MEAN CORPUSCULAR HEMOGLOBIN 36.5 PG (27.0-34.0); MEAN CORPUSCULAR HGB CONC 33.5 % (32.0-36.0); MEAN PLATELET VOLUME 8.1 FL (7.0-11.0); PLATELET COUNT 190 TH/MM3 (150-450); RED BLOOD COUNT 2.82 MIL/MM3 (4.00-5.30); RED CELL DISTRIBUTION WIDTH 15.9 % (11.6-17.2); WHITE BLOOD COUNT 7.7 TH/MM3 (4.0-11.0)
[2017-08-26 10:13] LABS: BICARBONATE 17.2 MEQ/L (21.0-32.0); BLOOD UREA NITROGEN LESS THAN 1 MG/DL (7-18); CALCIUM 7.6 MG/DL (8.5-10.1); CHLORIDE 114 MEQ/L (98-107); CREATININE 0.34 MG/DL (0.50-1.00); GLOMERULAR FILTRATION RATE 206 ML/MIN (>89); GLUCOSE,RANDOM 79 MG/DL (74-106); MAGNESIUM 1.2 MG/DL (1.5-2.5); SODIUM (NA) 143 MEQ/L (136-145)
[2017-08-26 10:14] LABS: PHOSPHORUS 2.5 MG/DL (2.5-4.9)
--- NOTE | 2017-08-26 11:27 | HHI.PR ---
Subjective Remarks The patient was resting in bed. She was still shaky. Her family was at the bedside and had questions about her condition. The pt wanted to know how to improve her pneumonia. Discussed with nursing at the bedside. Still having a lot of diarrhea. Objective Vitals Vital Signs Date Time Temp Pulse Resp B/P (MAP) Pulse Ox O2 Delivery O2 Flow Rate FiO2 08/26/17 08:50 98 08/26/17 06:00 104 08/26/17 04:00 92 08/26/17 04:00 98.3 92 19 127/93 (104) 98 08/26/17 02:00 102 08/26/17 00:00 98.4 110 28 107/72 (84) 97 08/26/17 00:00 110 08/25/17 22:00 126 08/25/17 20:34 96 21 08/25/17 20:00 116 08/25/17 20:00 98.0 116 26 94/60 (71) 97 08/25/17 19:00 96 Nasal Cannula 3.00 08/25/17 18:00 125 08/25/17 18:00 125 28 100/70 (80) 97 08/25/17 16:00 146 08/25/17 16:00 98.9 146 29 105/71 (82) 95 08/25/17 14:00 120 08/25/17 12:00 136 08/25/17 12:00 98.7 136 30 113/87 (96) 95 I/O 08/25/17 08/25/17 08/25/17 08/26/17 08/26/17 08/26/17 07:00 15:00 23:00 07:00 15:00 23:00 Intake Total 1375 ml 1610 ml 1740 ml Output Total 625 ml 850 ml 950 ml Balance 750 ml 760 ml 790 ml Intake Oral 360 ml 360 ml 640 ml IV Total 1015 ml 1250 ml 1100 ml Output Urine Total 425 ml 550 ml 800 ml Stool Total 200 ml 300 ml 150 ml Result Diagram: 08/26/17 0839 08/26/17 0839 Imaging Last Impressions Chest X-Ray 08/25/17 0000 Signed Impressions: Service Date/Time: Friday, August 25, 2017 10:54 - CONCLUSION: Concern for pneumonia within the basal aspect of the left upper lung. Felicity Willis MD Abdomen/Pelvis CT 08/21/17 0000 Signed Impressions: Service Date/Time: Monday, August 21, 2017 06:57 - CONCLUSION: 1. Right middle lobe pneumonia with infiltrates right lower lobe and lingula as well. 2. Thickening of the transverse colon wall could be technical, however colitis is not excluded. Fernando Eucdea MD Objective Remarks GENERAL: No apparent distress. SKIN: No rashes, ecchymoses or lesions. Cool and dry. HEAD: Atraumatic. Normocephalic. EYES: Pupils equal round and reactive. ENT: Nose without bleeding, purulent drainage or septal hematoma.. Airway patent. NECK: Trachea midline. No JVD or lymphadenopathy. CARDIOVASCULAR: Tachycardic without murmurs, gallops or rubs. RESPIRATORY: Diffuse rhonchi. GASTROINTESTINAL: Abdomen soft, non-tender, nondistended. MUSCULOSKELETAL: Extremities without clubbing, cyanosis, or edema. NEUROLOGICAL: Lethargic. Motor and sensory grossly within normal limits. Five out of 5 muscle strength in all muscle groups. Tremulous. PSYCH: Flat affect. Procedures Colonoscopy 08/22 Medications and IVs Current Medications Medications (Trade) Dose Ordered Sig/Artis Route Start Time Stop Time Status Last Admin (NS Flush) 2 ml UNSCH PRN IV FLUSH 08/20/17 20:30 08/23/17 18:24 (NS Flush) 2 ml BID IV FLUSH 08/20/17 21:00 08/26/17 09:33 (Narcan Inj) 0.4 mg UNSCH PRN IV PUSH 08/20/17 20:30 (Romazicon Inj) 0.2 mg Q1M PRN IV PUSH 08/20/17 20:30 (Ativan) 1 mg Q4H PRN PO 08/20/17 20:30 08/26/17 02:32 (Ativan Inj) 1 mg Q4H PRN IV PUSH 08/20/17 20:30 08/26/17 09:46 (Ativan) 2 mg Q2H PRN PO 08/20/17 20:30 08/25/17 23:59 (Ativan Inj) 2 mg Q2H PRN IV PUSH 08/20/17 20:30 08/25/17 11:41 (Ativan Inj) 2 mg Q1H PRN IV PUSH 08/20/17 20:30 08/24/17 08:07 (Ativan Inj) 2 mg Q15M PRN IV PUSH 08/20/17 20:30 08/24/17 05:03 (Habitrol 21 Mg Patch.24 Hr) 1 patch DAILY T-DERMAL 08/21/17 13:00 08/26/17 09:27 Miscellaneous Information 1 DAILY T-DERMAL 08/22/17 09:00 08/26/17 09:00 Miscellaneous Information Patient in critical care unit? Ass... Q361D .XX 08/21/17 13:30 (Chlorhexidine 2% Cloth) 3 pack UNSCH PRN TOPICAL 08/21/17 13:30 08/26/17 13:29 (Roxicodone) 5 mg Q4H PRN PO 08/21/17 17:30 08/25/17 23:59 (Roxicodone) 10 mg Q4H PRN PO 08/21/17 17:30 08/22/17 22:47 Potassium Chloride 30 meq/ Dextrose/Sodium Chloride 1,015 ml @ 125 mls/hr Q8H8M IV 08/22/17 08:45 08/26/17 10:43 Potassium Chloride 100 ml @ 50 mls/hr Q2H PRN IV 08/22/17 08:45 Potassium Chloride 100 ml @ 50 mls/hr Q2H PRN IV 08/22/17 08:45 08/24/17 08:07 (K-Lyte Cl Eff) 50 meq UNSCH PRN PO 08/22/17 08:45 08/23/17 09:41 Potassium Chloride 100 ml @ 25 mls/hr UNSCH PRN IV 08/22/17 08:45 Potassium Chloride 100 ml @ 50 mls/hr Q2H PRN IV 08/22/17 08:45 Magnesium Sulfate 4 gm/Sodium Chloride 100 ml @ 50 mls/hr UNSCH PRN IV 08/22/17 08:45 (Mag-Ox) 800 mg UNSCH PRN PO 08/22/17 08:45 Magnesium Sulfate 2 gm/Sodium Chloride 100 ml @ 50 mls/hr UNSCH PRN IV 08/22/17 08:45 08/24/17 18:01 (K-Phos) 2,000 mg Q4H PRN PO 08/22/17 08:45 Sodium Phosphate 30 mmol/Sodium Chloride 250 ml @ 42 mls/hr UNSCH PRN IV 08/22/17 08:45 (K-Phos) 2,000 mg UNSCH PRN PO/TUBE 08/22/17 08:45 Potassium Phosphate 30 mmol/ Sodium Chloride 260 ml @ 42 mls/hr UNSCH PRN IV 08/22/17 08:45 Levofloxacin/ Dextrose 150 ml @ 100 mls/hr Q24H IV 08/22/17 14:00 08/25/17 13:33 Metronidazole 100 ml @ 100 mls/hr Q8H IV 08/22/17 15:00 08/26/17 05:36 (Haldol Inj) 2 mg Q15M PRN IM 08/23/17 21:30 08/24/17 15:52 (Questran 4 Gm Pkt) 4 gm Q12HR PO 08/24/17 21:00 08/26/17 09:28 (SoluMEDROL INJ) 40 mg Q8HR IV PUSH 08/25/17 10:30 08/26/17 05:36 (Duoneb Neb) 1 ampule Q2HR NEB PRN NEB 08/25/17 10:30 (Duoneb Neb) 1 ampule Q6HR WHILE AWAKE NEB NEB 08/25/17 10:30 08/26/17 08:49 (Librium) 25 mg TID PO 08/25/17 11:00 08/26/17 09:28 (Lovenox Inj) 30 mg Q24H SQ 08/25/17 12:00 08/25/17 11:42 A/P Problem List: (1) Leukocytosis ICD Code: D72.829 - Elevated white blood cell count, unspecified Status: Acute (2) Diarrhea ICD Code: R19.7 - Diarrhea, unspecified Status: Acute (3) Hypokalemia ICD Code: E87.6 - Hypokalemia Status: Acute (4) Hyponatremia ICD Code: E87.1 - Hypo-osmolality and hyponatremia Status: Acute Assessment and Plan Severe sepsis/ Lactic acidosis/ Acute diverticulitis/ PNA The pt has diarrhea and right sided pneumonia. C diff negative. GI consult appreciated. Diverticulitis noted on colonoscopy. Pathology significant for adipose tissue and tubular adenoma. Cultures show no growth. - changed antibiotics to IV Levaquin and Flagyl. - IVFs. - telemetry. - diet per GI. Still on full liquids. - fecal collection bag as needed. - pain control as needed. Severe hypokalemia/ hyponatremia/ hypomagnesemia S/t diarrhea. Potassium 1.9, sodium 126 on admission. Improving. - Supplementation ordered, trend electrolytes closely, replace as needed. On ICU replacement protocol. - IVFs with KCl at 125 ml/hr. - telemetry. Tachycardia EKG shows sinus tachycardia. S/t sepsis and alcohol withdrawal. Trops flat. - Monitor telemetry. - continue standing Librium. - IVFs. EtOH withdrawal/ Anxiety Alcohol level elevated on admission. Currently withdrawing. - CIWA protocol. Librium 25 mg q8h added. - Seizure precautions. - cessation instruction. - Supportive care. Hypoglycemia S/t decreased PO intake. - IVFs with D5. Anemia Likely large component is dilutional. MCV is elevated suggesting possible bone marrow suppression s/t alcohol abuse. - continue to monitor CBC. Stable. DVT prophylaxis: SCDs, Lovenox Discharge Planning Keep in ICU until alcohol withdrawal improves Problem Qualifiers (1) Leukocytosis: Qualified Codes: D72.829 - Elevated white blood cell count, unspecified (2) Diarrhea: Qualified Codes: R19.7 - Diarrhea, unspecified Will Gunn DO Aug 26, 2017 11:27
--- NOTE | 2017-08-26 11:44 | HHI.GIFU ---
Subjective Remarks Pt resting in bed in NAD. family at bedside. eating little per family. still liquid watery bilious appearing stool but is starting to have some formed bits. (Camilla Vega) Objective Vitals I&O Vital Signs Date Time Temp Pulse Resp B/P (MAP) Pulse Ox O2 Delivery O2 Flow Rate FiO2 08/26/17 08:50 98 08/26/17 06:00 104 08/26/17 04:00 92 08/26/17 04:00 98.3 92 19 127/93 (104) 98 08/26/17 02:00 102 08/26/17 00:00 98.4 110 28 107/72 (84) 97 08/26/17 00:00 110 08/25/17 22:00 126 08/25/17 20:34 96 21 08/25/17 20:00 116 08/25/17 20:00 98.0 116 26 94/60 (71) 97 08/25/17 19:00 96 Nasal Cannula 3.00 08/25/17 18:00 125 08/25/17 18:00 125 28 100/70 (80) 97 08/25/17 16:00 146 08/25/17 16:00 98.9 146 29 105/71 (82) 95 08/25/17 14:00 120 08/25/17 12:00 136 08/25/17 12:00 98.7 136 30 113/87 (96) 95 I/O 08/25/17 08/25/17 08/25/17 08/26/17 08/26/17 08/26/17 07:00 15:00 23:00 07:00 15:00 23:00 Intake Total 1375 ml 1610 ml 1740 ml Output Total 625 ml 850 ml 950 ml Balance 750 ml 760 ml 790 ml Intake Oral 360 ml 360 ml 640 ml IV Total 1015 ml 1250 ml 1100 ml Output Urine Total 425 ml 550 ml 800 ml Stool Total 200 ml 300 ml 150 ml Laboratory Laboratory Tests Test 08/26/17 08:39 White Blood Count 7.7 Red Blood Count 2.82 Hemoglobin 10.3 Hematocrit 30.7 Mean Corpuscular Volume 109.0 Mean Corpuscular Hemoglobin 36.5 Mean Corpuscular Hemoglobin Concent 33.5 Red Cell Distribution Width 15.9 Platelet Count 190 Mean Platelet Volume 8.1 Hematology Comments Blood Urea Nitrogen LESS THAN 1 Creatinine 0.34 Random Glucose 79 Calcium Level 7.6 Phosphorus Level 2.5 Magnesium Level 1.2 Sodium Level 143 Potassium Level 3.9 Chloride Level 114 Carbon Dioxide Level 17.2 Anion Gap 12 Estimat Glomerular Filtration Rate 206 Date/Time Source Procedure Growth Status 08/20/17 20:00 Blood Peripheral Aerobic Blood Culture - Final NO GROWTH IN 5 DAYS Complete 08/20/17 20:00 Blood Peripheral Anaerobic Blood Culture - Final NO GROWTH IN 5 DAYS Complete 08/21/17 07:45 Stool Stool Cryptosporidium Exam - Final NEGATIVE - NO CRYPTOSPORIDIUM ANTIGEN... Complete 08/21/17 07:45 Stool Stool Giardia Antigen (CARTER) - Final NEGATIVE - NO GIARDIA ANTIGEN DETECTE... Complete Imaging Last Impressions Chest X-Ray 08/25/17 0000 Signed Impressions: Service Date/Time: Friday, August 25, 2017 10:54 - CONCLUSION: Concern for pneumonia within the basal aspect of the left upper lung. Felicity Willis MD Abdomen/Pelvis CT 08/21/17 0000 Signed Impressions: Service Date/Time: Monday, August 21, 2017 06:57 - CONCLUSION: 1. Right middle lobe pneumonia with infiltrates right lower lobe and lingula as well. 2. Thickening of the transverse colon wall could be technical, however colitis is not excluded. Fernando Euceda MD Physical Exam HEENT: Normocephalic; atraumatic CHEST: CTA CARDIAC: RRR ABDOMEN: mildly distended, nontender; bowel sounds active EXTREMITIES: No clubbing, cyanosis, or edema. restraints SKIN: Normal; no rash; no jaundice. BARRATTE OPERATOR: lethargic (Camilla Vega SPARMAKER) Assessment and Plan Plan ASSESSMENT - diarrhea - 2 weeks of watery nearly neon yellow, yellow staining stool. intermittent lower abd cramping, intermittent epigastric pain. limited hx. never had EGD or colonoscopy. CT showed fatty liver, PNA, poss transverse colitis initially refused colonoscopy and now agrees - coagulopathy - INR 1.4 suspect some degree of liver dz. has spider angiomas , liver feels enlarged - leukocytosis - could be 2/2 diarrhea. stool cx pending. afebrile (08/23) --> Pt reports continued diarrhea- approx 5-6 a day. S/P colonoscopy yesterday --> Mild diverticulosis in sigmoid colon. Diffuse circumferential colitis in the ascending colon at the cecum. Mucosa was atrophic, friable and erythematous. Small sessile polyp, ranging between 3-5 mm in size, polypectomy. Stool studies negative. 08/24/17 path colon tubular adenoma. still wtih copious loose stool but it does appear less watery and clear than before. stools studies neg thus far, c diff neg. 08/25/17, continues with rectal Rose, dark liquid stool, previous CT showed possible colitis, urine is dark icteric color, denies any nausea or vomiting. Hemoglobin stable at 9.2 without obvious bleeding Labs alkaline phosphatase 146, AST 54, ALT 21 08/26/17 liquid stool but starting to have firm bits. pt lethargic. PLAN - low res diet - consider ensure if pt still not eating much - TID cholestyramine - Levaquin - Flagyl - continue supportive care Pt has been seen and examined by myself and Dr. Vega and this note is written on his behalf (Camilla Vega) Physician Comments As above, will follow up with you. (Roselia Vega MD) Camilla Vega Aug 26, 2017 11:44 Roselia Vega MD Aug 26, 2017 13:17
[2017-08-26] MEDS: LEVOFLOXACIN 750 MG PREMIX INJ 150 ML IV SCH (13:10)
[2017-08-26] MEDS: ENOXAPARIN SODIUM 30 MG/0.3 ML SYRINGE SQ SCH (13:11)
[2017-08-27] VITALS (14 sets, daily range): BP systolic 98–131; BP diastolic 70–81; PULSE 100–157; RESP 19–25; TEMP 98.1–100.7; O2SAT 90–99
[2017-08-27] MEDS: LORazepam 2 MG/ML VIAL IV PUSH PRN ×6 (03:59→21:31)
[2017-08-27] MEDS: metroNIDAZOLE 500 MG INJ 100 ML IV SCH ×3 (05:50→22:46)
[2017-08-27] MEDS: methylPREDNISolone SOD SUCC 40 MG/1 ML VIAL IV PUSH SCH ×3 (05:50→20:22)
[2017-08-27] MEDS: RESP: ALBUTEROL 2.5 MG/IPRATROPIUM 0.5 MG NEB (SCH) NEB ×3 (07:39→20:43)
[2017-08-27] MEDS: HALOPERIDOL LACTATE 5 MG/ML AMP IM PRN (08:00)
[2017-08-27] MEDS: chlordiazePOXIDE 25 MG CAP PO SCH ×3 (08:01→18:12)
[2017-08-27 08:32] LABS: CHLORIDE 110 MEQ/L (98-107); CREATININE 0.43 MG/DL (0.50-1.00); GLOMERULAR FILTRATION RATE 157 ML/MIN (>89); SODIUM (NA) 142 MEQ/L (136-145)
[2017-08-27 08:38] LABS: BICARBONATE 17.6 MEQ/L (21.0-32.0); BLOOD UREA NITROGEN LESS THAN 1 MG/DL (7-18); GLUCOSE,RANDOM 71 MG/DL (74-106); MAGNESIUM 1.2 MG/DL (1.5-2.5); PHOSPHORUS 2.4 MG/DL (2.5-4.9)
[2017-08-27] MEDS: REMOVE OLD PATCH T-DERMAL SCH (09:10)
[2017-08-27] MEDS: NICOTINE 21 MG/24 HR PATCH T-DERMAL SCH (09:10)
[2017-08-27] MEDS: SODIUM CHLORIDE 0.9% FLUSH 10 ML FLUSH IV FLUSH SCH ×2 (09:10→20:21)
[2017-08-27] MEDS: CHOLESTYRAMINE 4 GM PACKET PO SCH ×3 (09:10→18:12)
--- NOTE | 2017-08-27 10:33 | HHI.GIFU ---
Subjective Remarks Pt resting in bed, sleeping. still with loose stool. per RN on CIWA protocol and needing ativan q1 hour (Camilla Vega) Objective Vitals I&O Vital Signs Date Time Temp Pulse Resp B/P (MAP) Pulse Ox O2 Delivery O2 Flow Rate FiO2 08/27/17 08:00 100.7 157 25 131/76 (94) 93 08/27/17 07:40 98 21 08/27/17 06:00 108 08/27/17 04:00 98.1 107 20 112/80 (91) 96 08/27/17 04:00 112 08/27/17 02:00 120 08/27/17 00:00 98.4 120 22 126/81 (96) 97 08/27/17 00:00 100 08/26/17 22:00 102 08/26/17 21:05 97 21 08/26/17 20:00 98.1 104 22 108/78 (88) 97 08/26/17 20:00 96 08/26/17 19:00 96 Room Air 08/26/17 18:00 111 08/26/17 16:00 98.5 105 24 111/83 (92) 97 08/26/17 16:00 105 08/26/17 14:10 25 08/26/17 14:00 124 08/26/17 12:00 98.0 120 22 102/66 (78) 98 08/26/17 12:00 120 I/O 08/26/17 08/26/17 08/26/17 08/27/17 08/27/17 08/27/17 07:00 15:00 23:00 07:00 15:00 23:00 Intake Total 1740 ml 150 ml 1415 ml 620 ml Output Total 950 ml 1100 ml 2000 ml Balance 790 ml 150 ml 315 ml -1380 ml Intake Oral 640 ml 300 ml 420 ml IV Total 1100 ml 150 ml 1115 ml 200 ml Output Urine Total 800 ml 600 ml 1800 ml Stool Total 150 ml 500 ml 200 ml Laboratory Laboratory Tests Test 08/27/17 06:41 Blood Urea Nitrogen LESS THAN 1 Creatinine 0.43 Random Glucose 71 Calcium Level 8.0 Phosphorus Level 2.4 Magnesium Level 1.2 Sodium Level 142 Potassium Level 3.8 Chloride Level 110 Carbon Dioxide Level 17.6 Anion Gap 14 Estimat Glomerular Filtration Rate 157 Date/Time Source Procedure Growth Status 08/20/17 20:00 Blood Peripheral Aerobic Blood Culture - Final NO GROWTH IN 5 DAYS Complete 08/20/17 20:00 Blood Peripheral Anaerobic Blood Culture - Final NO GROWTH IN 5 DAYS Complete 08/21/17 07:45 Stool Stool Cryptosporidium Exam - Final NEGATIVE - NO CRYPTOSPORIDIUM ANTIGEN... Complete 08/21/17 07:45 Stool Stool Giardia Antigen (CARTER) - Final NEGATIVE - NO GIARDIA ANTIGEN DETECTE... Complete Imaging Last Impressions Chest X-Ray 08/25/17 0000 Signed Impressions: Service Date/Time: Friday, August 25, 2017 10:54 - CONCLUSION: Concern for pneumonia within the basal aspect of the left upper lung. Felicity Willis MD Abdomen/Pelvis CT 08/21/17 0000 Signed Impressions: Service Date/Time: Monday, August 21, 2017 06:57 - CONCLUSION: 1. Right middle lobe pneumonia with infiltrates right lower lobe and lingula as well. 2. Thickening of the transverse colon wall could be technical, however colitis is not excluded. Fernando Euceda MD Physical Exam HEENT: Normocephalic; atraumatic CHEST: CTA CARDIAC: RRR ABDOMEN: mildly distended, nontender; bowel sounds active EXTREMITIES: No clubbing, cyanosis, or edema. restraints SKIN: Normal; no rash; no jaundice. LABORATORY TECHNICAL SPECIALIST: did not rouse to exam (Camilla Vega CHIEF TECHNOLOGIST) Assessment and Plan Plan ASSESSMENT - diarrhea - 2 weeks of watery nearly neon yellow, yellow staining stool. intermittent lower abd cramping, intermittent epigastric pain. limited hx. never had EGD or colonoscopy. CT showed fatty liver, PNA, poss transverse colitis initially refused colonoscopy and now agrees - coagulopathy - INR 1.4 suspect some degree of liver dz. has spider angiomas , liver feels enlarged - leukocytosis - could be 2/2 diarrhea. stool cx pending. afebrile (08/23) --> Pt reports continued diarrhea- approx 5-6 a day. S/P colonoscopy yesterday --> Mild diverticulosis in sigmoid colon. Diffuse circumferential colitis in the ascending colon at the cecum. Mucosa was atrophic, friable and erythematous. Small sessile polyp, ranging between 3-5 mm in size, polypectomy. Stool studies negative. 08/24/17 path colon tubular adenoma. still wtih copious loose stool but it does appear less watery and clear than before. stools studies neg thus far, c diff neg. 08/25/17, continues with rectal Rose, dark liquid stool, previous CT showed possible colitis, urine is dark icteric color, denies any nausea or vomiting. Hemoglobin stable at 9.2 without obvious bleeding Labs alkaline phosphatase 146, AST 54, ALT 21 08/26/17 liquid stool but starting to have firm bits. pt lethargic. 08/27/17 seen while she was sleeping, has been agitate and requiring frequent ativan per CIWA protocol. watery diarrhea with some solid bits. not eating much. on cholestyramine PLAN - low res diet - consider ensure if pt still not eating much - TID cholestyramine - Levaquin - Flagyl - continue supportive care Pt has been seen and examined by myself and and myself and this note is on her behalf (Camilla Vega) Physician Comments seen, examined agree with above trial of rifaximin, creon supplement thiamine if no improvement start asacol/steroids if no improvement in oral intake insert ngt and start tf (Nay Salas MD) Camilla Vega Aug 27, 2017 10:33 Nay Salas MD Aug 27, 2017 11:13
[2017-08-27] MEDS ORDERED: ACETAMINOPHEN 325 MG TAB PO PRN (11:45)
--- NOTE | 2017-08-27 11:53 | HHI.PR ---
Subjective Remarks The patient was tired. Discussed with nursing who stated that the patient received multiple doses of Ativan. The pt's family was at the bedside and their questions were answered. Objective Vitals Vital Signs Date Time Temp Pulse Resp B/P (MAP) Pulse Ox O2 Delivery O2 Flow Rate FiO2 08/27/17 08:00 100.7 157 25 131/76 (94) 93 08/27/17 07:40 98 21 08/27/17 06:00 108 08/27/17 04:00 98.1 107 20 112/80 (91) 96 08/27/17 04:00 112 08/27/17 02:00 120 08/27/17 00:00 98.4 120 22 126/81 (96) 97 08/27/17 00:00 100 08/26/17 22:00 102 08/26/17 21:05 97 21 08/26/17 20:00 98.1 104 22 108/78 (88) 97 08/26/17 20:00 96 08/26/17 19:00 96 Room Air 08/26/17 18:00 111 08/26/17 16:00 98.5 105 24 111/83 (92) 97 08/26/17 16:00 105 08/26/17 14:10 25 08/26/17 14:00 124 08/26/17 12:00 98.0 120 22 102/66 (78) 98 08/26/17 12:00 120 I/O 08/26/17 08/26/17 08/26/17 08/27/17 08/27/17 08/27/17 07:00 15:00 23:00 07:00 15:00 23:00 Intake Total 1740 ml 150 ml 1415 ml 620 ml Output Total 950 ml 1100 ml 2000 ml Balance 790 ml 150 ml 315 ml -1380 ml Intake Oral 640 ml 300 ml 420 ml IV Total 1100 ml 150 ml 1115 ml 200 ml Output Urine Total 800 ml 600 ml 1800 ml Stool Total 150 ml 500 ml 200 ml Result Diagram: 08/26/17 0839 08/27/17 0641 Imaging Last Impressions Chest X-Ray 08/25/17 0000 Signed Impressions: Service Date/Time: Friday, August 25, 2017 10:54 - CONCLUSION: Concern for pneumonia within the basal aspect of the left upper lung. Felicity Willis MD Abdomen/Pelvis CT 08/21/17 0000 Signed Impressions: Service Date/Time: Monday, August 21, 2017 06:57 - CONCLUSION: 1. Right middle lobe pneumonia with infiltrates right lower lobe and lingula as well. 2. Thickening of the transverse colon wall could be technical, however colitis is not excluded. Fernando Euceda MD Objective Remarks GENERAL: No apparent distress. SKIN: No rashes, ecchymoses or lesions. Cool and dry. HEAD: Atraumatic. Normocephalic. EYES: Pupils equal round and reactive. ENT: Nose without bleeding, purulent drainage or septal hematoma.. Airway patent. NECK: Trachea midline. No JVD or lymphadenopathy. CARDIOVASCULAR: Tachycardic without murmurs, gallops or rubs. RESPIRATORY: Diffuse rhonchi. GASTROINTESTINAL: Abdomen soft, non-tender, nondistended. MUSCULOSKELETAL: Extremities without clubbing, cyanosis, or edema. NEUROLOGICAL: Lethargic. Motor and sensory grossly within normal limits. Five out of 5 muscle strength in all muscle groups. Tremulous. PSYCH: Flat affect. Procedures Colonoscopy 08/22 Medications and IVs Current Medications Medications (Trade) Dose Ordered Sig/Artis Route Start Time Stop Time Status Last Admin (NS Flush) 2 ml UNSCH PRN IV FLUSH 08/20/17 20:30 08/23/17 18:24 (NS Flush) 2 ml BID IV FLUSH 08/20/17 21:00 08/27/17 09:10 (Narcan Inj) 0.4 mg UNSCH PRN IV PUSH 08/20/17 20:30 (Romazicon Inj) 0.2 mg Q1M PRN IV PUSH 08/20/17 20:30 (Ativan) 1 mg Q4H PRN PO 08/20/17 20:30 08/26/17 18:09 (Ativan Inj) 1 mg Q4H PRN IV PUSH 08/20/17 20:30 08/26/17 09:46 (Ativan) 2 mg Q2H PRN PO 08/20/17 20:30 08/25/17 23:59 (Ativan Inj) 2 mg Q2H PRN IV PUSH 08/20/17 20:30 08/27/17 06:43 (Ativan Inj) 2 mg Q1H PRN IV PUSH 08/20/17 20:30 08/27/17 09:20 (Ativan Inj) 2 mg Q15M PRN IV PUSH 08/20/17 20:30 08/24/17 05:03 (Habitrol 21 Mg Patch.24 Hr) 1 patch DAILY T-DERMAL 08/21/17 13:00 08/27/17 09:10 Miscellaneous Information 1 DAILY T-DERMAL 08/22/17 09:00 08/27/17 09:10 Miscellaneous Information Patient in critical care unit? Ass... Q361D .XX 08/21/17 13:30 (Roxicodone) 5 mg Q4H PRN PO 08/21/17 17:30 08/26/17 13:11 (Roxicodone) 10 mg Q4H PRN PO 08/21/17 17:30 08/27/17 09:09 Potassium Chloride 30 meq/ Dextrose/Sodium Chloride 1,015 ml @ 125 mls/hr Q8H8M IV 08/22/17 08:45 08/26/17 18:09 Potassium Chloride 100 ml @ 50 mls/hr Q2H PRN IV 08/22/17 08:45 Potassium Chloride 100 ml @ 50 mls/hr Q2H PRN IV 08/22/17 08:45 08/24/17 08:07 (K-Lyte Cl Eff) 50 meq UNSCH PRN PO 08/22/17 08:45 08/23/17 09:41 Potassium Chloride 100 ml @ 25 mls/hr UNSCH PRN IV 08/22/17 08:45 Potassium Chloride 100 ml @ 50 mls/hr Q2H PRN IV 08/22/17 08:45 Magnesium Sulfate 4 gm/Sodium Chloride 100 ml @ 50 mls/hr UNSCH PRN IV 08/22/17 08:45 (Mag-Ox) 800 mg UNSCH PRN PO 08/22/17 08:45 Magnesium Sulfate 2 gm/Sodium Chloride 100 ml @ 50 mls/hr UNSCH PRN IV 08/22/17 08:45 08/24/17 18:01 (K-Phos) 2,000 mg Q4H PRN PO 08/22/17 08:45 Sodium Phosphate 30 mmol/Sodium Chloride 250 ml @ 42 mls/hr UNSCH PRN IV 08/22/17 08:45 (K-Phos) 2,000 mg UNSCH PRN PO/TUBE 08/22/17 08:45 Potassium Phosphate 30 mmol/ Sodium Chloride 260 ml @ 42 mls/hr UNSCH PRN IV 08/22/17 08:45 Levofloxacin/ Dextrose 150 ml @ 100 mls/hr Q24H IV 08/22/17 14:00 08/26/17 13:10 Metronidazole 100 ml @ 100 mls/hr Q8H IV 08/22/17 15:00 08/27/17 05:50 (Haldol Inj) 2 mg Q15M PRN IM 08/23/17 21:30 08/27/17 08:00 (SoluMEDROL INJ) 40 mg Q8HR IV PUSH 08/25/17 10:30 08/27/17 05:50 (Duoneb Neb) 1 ampule Q2HR NEB PRN NEB 08/25/17 10:30 (Duoneb Neb) 1 ampule Q6HR WHILE AWAKE NEB NEB 08/25/17 10:30 08/26/17 21:05 (Librium) 25 mg TID PO 08/25/17 11:00 08/27/17 08:01 (Lovenox Inj) 30 mg Q24H SQ 08/25/17 12:00 08/26/17 13:11 (Questran 4 Gm Pkt) 4 gm TID PO 08/26/17 13:00 08/27/17 09:10 (Xifaxan) 550 mg BID PO 08/27/17 21:00 (Creon 24-76-120) 2 cap TID PO 08/27/17 13:00 Thiamine HCl 100 mg/Sodium Chloride 101 ml @ 101 mls/hr DAILY IV 08/28/17 09:00 (Tylenol) 650 mg Q4H PRN PO 08/27/17 11:45 UNV A/P Problem List: (1) Leukocytosis ICD Code: D72.829 - Elevated white blood cell count, unspecified Status: Acute (2) Diarrhea ICD Code: R19.7 - Diarrhea, unspecified Status: Acute (3) Hypokalemia ICD Code: E87.6 - Hypokalemia Status: Acute (4) Hyponatremia ICD Code: E87.1 - Hypo-osmolality and hyponatremia Status: Acute Assessment and Plan Severe sepsis/ Lactic acidosis/ Acute diverticulitis/ PNA The pt has diarrhea and right sided pneumonia. C diff negative. GI consult appreciated. Diverticulitis noted on colonoscopy. Pathology significant for adipose tissue and tubular adenoma. Cultures show no growth. - changed antibiotics to IV Levaquin and Flagyl. - IVFs. - telemetry. - advanced to soft diet. - fecal collection bag as needed. - pain control as needed. - PT/ OT/ ST. - repeat CXR in AM. - follow up with GI. Creon and rifaximin added. Severe hypokalemia/ hyponatremia/ hypomagnesemia S/t diarrhea. Potassium 1.9, sodium 126 on admission. Improving. - Supplementation ordered, trend electrolytes closely, replace as needed. On ICU replacement protocol. - IVFs with KCl at 125 ml/hr. - telemetry. Tachycardia EKG shows sinus tachycardia. S/t sepsis and alcohol withdrawal. Trops flat. - Monitor telemetry. - continue standing Librium. - IVFs. - check a TSH. EtOH withdrawal/ Anxiety Alcohol level elevated on admission. Currently withdrawing. - CIWA protocol. Librium 25 mg q8h added. Wean when able. - Seizure precautions. - cessation instruction. - Supportive care. Hypoglycemia S/t decreased PO intake. - IVFs with D5. Anemia Likely large component is dilutional. MCV is elevated suggesting possible bone marrow suppression s/t alcohol abuse. - continue to monitor CBC. Stable. DVT prophylaxis: SCDs, Lovenox Discharge Planning Keep in ICU for now Problem Qualifiers (1) Leukocytosis: Qualified Codes: D72.829 - Elevated white blood cell count, unspecified (2) Diarrhea: Qualified Codes: R19.7 - Diarrhea, unspecified Will Gunn DO Aug 27, 2017 11:53
[2017-08-27] MEDS: LEVOFLOXACIN 750 MG PREMIX INJ 150 ML IV SCH (14:09)
[2017-08-27] MEDS: ENOXAPARIN SODIUM 30 MG/0.3 ML SYRINGE SQ SCH (14:09)
[2017-08-27] MEDS: LIPASE/PROTEASE/AMYLASE (24,000/76,000/120,000) CAP PO SCH ×2 (14:09→18:12)
[2017-08-27] MEDS: POTASSIUM CHLORIDE INJ 30 MEQ in DEXT 5%-NACL 0.9% 1000 ML INJ 1,000 ML IV SCH (19:21)
[2017-08-27] MEDS: RIFAXIMIN 550 MG TAB PO SCH (20:21)
[2017-08-28] VITALS (20 sets, daily range): BP systolic 105–116; BP diastolic 71–86; PULSE 66–105; RESP 14–22; TEMP 98.3–98.7; O2SAT 87–100
[2017-08-28] MEDS: LORazepam 2 MG/ML VIAL IV PUSH PRN (00:11)
[2017-08-28] MEDS: POTASSIUM CHLORIDE INJ 30 MEQ in DEXT 5%-NACL 0.9% 1000 ML INJ 1,000 ML IV SCH ×2 (03:12→19:18)
--- NOTE | 2017-08-28 04:56 | RADRPT ---
EXAM DATE/TIME: 08/28/2017 03:28 [place] COMPARISON: CHEST SINGLE AP, August 25, 2017, 10:54. INDICATIONS : Short of breath. MEDICAL HISTORY : Hypertension. Asthma, Substance abuse. SURGICAL HISTORY : None. ENCOUNTER: Subsequent ACUITY: 3 days PAIN SCORE: 0/10 LOCATION: Bilateral chest FINDINGS: Interval development of lobar consolidation in the left lower lung with loss of delineation of the en tire left hemidiaphragm. The right lung is clear. The heart is normal size. CONCLUSION: Interval development of left lower lobe consolidation. Gonzalez Portillo MD on August 28, 2017 at 4:54 Board Certified Radiologist. This report was verified electronically.
[2017-08-28] MEDS: methylPREDNISolone SOD SUCC 40 MG/1 ML VIAL IV PUSH SCH ×3 (05:59→20:56)
[2017-08-28] MEDS: metroNIDAZOLE 500 MG INJ 100 ML IV SCH ×4 (05:59→23:04)
[2017-08-28 06:11] LABS: INTERNATIONAL NORMALIZED RATIO 1.5 RATIO; PROTHROMBIN TIME - PATIENT 15.6 SEC (9.8-11.6)
[2017-08-28 06:12] LABS: HEMOGLOBIN 10.1 GM/DL (11.6-15.3); MEAN CELL VOLUME 109.9 FL (80.0-100.0); MEAN CORPUSCULAR HEMOGLOBIN 36.9 PG (27.0-34.0); MEAN CORPUSCULAR HGB CONC 33.5 % (32.0-36.0); MEAN PLATELET VOLUME 7.6 FL (7.0-11.0); PLATELET COUNT 224 TH/MM3 (150-450); RED BLOOD COUNT 2.73 MIL/MM3 (4.00-5.30); RED CELL DISTRIBUTION WIDTH 16.1 % (11.6-17.2); WHITE BLOOD COUNT 4.5 TH/MM3 (4.0-11.0)
[2017-08-28 06:32] LABS: ALBUMIN 2.1 GM/DL (3.4-5.0); ALKALINE PHOSPHATASE 143 U/L (45-117); ALT (GPT) 30 U/L (10-53); AST (GOT) 120 U/L (15-37); BICARBONATE 20.3 MEQ/L (21.0-32.0); BLOOD UREA NITROGEN LESS THAN 1 MG/DL (7-18); CALCIUM 7.8 MG/DL (8.5-10.1); CHLORIDE 110 MEQ/L (98-107); CREATININE 0.35 MG/DL (0.50-1.00); DIRECT BILIRUBIN ADULT 0.2 MG/DL (0.0-0.2); GLOMERULAR FILTRATION RATE 200 ML/MIN (>89); GLUCOSE,RANDOM 115 MG/DL (74-106); INDIRECT BILIRUBIN 0.2 MG/DL (0.0-0.8); MAGNESIUM 1.3 MG/DL (1.5-2.5); SODIUM (NA) 141 MEQ/L (136-145); TOTAL BILIRUBIN ADULT 0.4 MG/DL (0.2-1.0); TOTAL PROTEIN 5.6 GM/DL (6.4-8.2)
[2017-08-28] MEDS: RESP: ALBUTEROL 2.5 MG/IPRATROPIUM 0.5 MG NEB (SCH) NEB ×2 (08:00→20:27)
--- NOTE | 2017-08-28 08:19 | HHI.PR ---
Subjective Remarks Follow-up sepsis, alcohol withdrawal, electrolyte abnormalities. Patient states she is "sleepy". She does remain confused. Per nursing, she has continued to require Ativan for withdrawal symptoms. Objective Vitals Vital Signs Date Time Temp Pulse Resp B/P (MAP) Pulse Ox O2 Delivery O2 Flow Rate FiO2 08/28/17 08:11 95 Nasal Cannula 3.00 08/28/17 06:00 69 08/28/17 04:00 98.4 82 15 115/82 (93) 100 08/28/17 04:00 82 08/28/17 02:00 85 08/28/17 00:00 98.7 105 22 116/84 (95) 99 08/28/17 00:00 105 08/27/17 22:00 108 08/27/17 20:46 97 Nasal Cannula 3.00 08/27/17 20:00 98.6 100 19 111/77 (88) 99 08/27/17 20:00 100 08/27/17 19:00 97 Nasal Cannula 3.00 08/27/17 18:00 112 08/27/17 16:00 98.3 104 20 104/73 (83) 90 08/27/17 16:00 104 08/27/17 14:00 106 08/27/17 12:00 99.9 121 19 98/70 (79) 90 08/27/17 12:00 121 08/27/17 10:09 18 08/27/17 10:00 119 I/O 08/27/17 08/27/17 08/27/17 08/28/17 08/28/17 08/28/17 06:59 14:59 22:59 06:59 14:59 22:59 Intake Total 620 ml 2665 ml 1707 ml 100 ml Output Total 2000 ml 1350 ml 2050 ml Balance -1380 ml 1315 ml -343 ml 100 ml Intake Oral 420 ml 350 ml 240 ml IV Total 200 ml 2315 ml 1467 ml 100 ml Output Urine Total 1800 ml 1350 ml 1950 ml Stool Total 200 ml 100 ml # Bowel Movements 1 Result Diagram: 08/28/17 0530 08/28/17 0530 Imaging Last Impressions Chest X-Ray 08/28/17 0600 Signed Impressions: Service Date/Time: Monday, August 28, 2017 03:28 - CONCLUSION: Interval development of left lower lobe consolidation. Gonzalez Portillo MD Abdomen/Pelvis CT 08/21/17 0000 Signed Impressions: Service Date/Time: Monday, August 21, 2017 06:57 - CONCLUSION: 1. Right middle lobe pneumonia with infiltrates right lower lobe and lingula as well. 2. Thickening of the transverse colon wall could be technical, however colitis is not excluded. Fernando Euceda MD Objective Remarks General: No acute distress. Heart: Regular rate and rhythm. No murmur. Lungs: Scattered rhonchi. Breathing is nonlabored. Abdomen: Soft, nontender, nondistended. Extremities: No lower extremity edema. Psych: Sleeping, but awakens to verbal stimuli. She is confused upon awakening. Procedures Colonoscopy 08/22 A/P Problem List: (1) Leukocytosis ICD Code: D72.829 - Elevated white blood cell count, unspecified Status: Acute (2) Diarrhea ICD Code: R19.7 - Diarrhea, unspecified Status: Acute (3) Hypokalemia ICD Code: E87.6 - Hypokalemia Status: Acute (4) Hyponatremia ICD Code: E87.1 - Hypo-osmolality and hyponatremia Status: Acute (5) Severe sepsis ICD Code: A41.9 - Sepsis, unspecified organism; R65.20 - Severe sepsis without septic shock (6) Lactic acidosis ICD Code: E87.2 - Acidosis (7) Acute diverticulitis ICD Code: K57.92 - Diverticulitis of intestine, part unspecified, without perforation or abscess without bleeding (8) Pneumonia ICD Code: J18.9 - Pneumonia, unspecified organism (9) Alcohol withdrawal ICD Code: F10.239 - Alcohol dependence with withdrawal, unspecified (10) Hypomagnesemia ICD Code: E83.42 - Hypomagnesemia Assessment and Plan 1. Severe sepsis, lactic acidosis: Secondary to acute diverticulitis, pneumonia. Continue antibiotics. 2. Acute diverticulitis: Appreciate GI recommendations. Status post colonoscopy. Continue antibiotics. 3. Pneumonia: Continue supplemental oxygen. Continue Levaquin. 4. Electrolyte abnormalities: Hypokalemia, hyponatremia, hypomagnesemia. Monitor labs and supplement per ICU electrolyte replacement protocol. 5. Tachycardia: Likely secondary to sepsis, alcohol withdrawal. Monitor on telemetry. 6. Alcohol withdrawal: Continue CIWA protocol. Continue Librium. Seizure precautions. 7. Hypoglycemia: Secondary to decreased oral intake. Continue D5 in IV fluids. 8. Anemia: Likely dilutional component in addition to bone marrow suppression secondary to alcohol abuse. 9. DVT prophylaxis: SCDs, Lovenox. Discharge Planning Pending clinical improvement. Problem Qualifiers (1) Leukocytosis: Qualified Codes: D72.829 - Elevated white blood cell count, unspecified (2) Diarrhea: Qualified Codes: R19.7 - Diarrhea, unspecified Cali Skaggs MD Aug 28, 2017 08:19
[2017-08-28] MEDS: NICOTINE 21 MG/24 HR PATCH T-DERMAL SCH (08:32)
[2017-08-28] MEDS: chlordiazePOXIDE 25 MG CAP PO SCH ×3 (08:33→17:54)
[2017-08-28] MEDS: LIPASE/PROTEASE/AMYLASE (24,000/76,000/120,000) CAP PO SCH ×3 (08:33→17:54)
[2017-08-28] MEDS: REMOVE OLD PATCH T-DERMAL SCH (08:33)
[2017-08-28] MEDS: RIFAXIMIN 550 MG TAB PO SCH ×2 (08:33→20:07)
[2017-08-28] MEDS: CHOLESTYRAMINE 4 GM PACKET PO SCH ×3 (08:33→17:55)
[2017-08-28] MEDS: SODIUM CHLORIDE 0.9% FLUSH 10 ML FLUSH IV FLUSH SCH ×2 (08:33→20:07)
[2017-08-28] MEDS: THIAMINE INJ 100 MG in SODIUM CHLORIDE 0.9% INJ 100 ML IV SCH (10:13)
--- NOTE | 2017-08-28 11:05 | HHI.GIFU ---
Subjective Remarks Pt resting in bed, family at bedside. Awake for a few minutes, says she is eating. (Camilla Vega) Objective Vitals I&O Vital Signs Date Time Temp Pulse Resp B/P (MAP) Pulse Ox O2 Delivery O2 Flow Rate FiO2 08/28/17 08:11 95 Nasal Cannula 3.00 08/28/17 06:00 69 08/28/17 04:00 98.4 82 15 115/82 (93) 100 08/28/17 04:00 82 08/28/17 02:00 85 08/28/17 00:00 98.7 105 22 116/84 (95) 99 08/28/17 00:00 105 08/27/17 22:00 108 08/27/17 20:46 97 Nasal Cannula 3.00 08/27/17 20:00 98.6 100 19 111/77 (88) 99 08/27/17 20:00 100 08/27/17 19:00 97 Nasal Cannula 3.00 08/27/17 18:00 112 08/27/17 16:00 98.3 104 20 104/73 (83) 90 08/27/17 16:00 104 08/27/17 14:00 106 08/27/17 12:00 99.9 121 19 98/70 (79) 90 08/27/17 12:00 121 I/O 08/27/17 08/27/17 08/27/17 08/28/17 08/28/17 08/28/17 07:00 15:00 23:00 07:00 15:00 23:00 Intake Total 620 ml 2665 ml 1707 ml 100 ml Output Total 2000 ml 1350 ml 2050 ml Balance -1380 ml 1315 ml -343 ml 100 ml Intake Oral 420 ml 350 ml 240 ml IV Total 200 ml 2315 ml 1467 ml 100 ml Output Urine Total 1800 ml 1350 ml 1950 ml Stool Total 200 ml 100 ml # Bowel Movements 1 Laboratory Laboratory Tests Test 08/28/17 05:30 White Blood Count 4.5 Red Blood Count 2.73 Hemoglobin 10.1 Hematocrit 30.0 Mean Corpuscular Volume 109.9 Mean Corpuscular Hemoglobin 36.9 Mean Corpuscular Hemoglobin Concent 33.5 Red Cell Distribution Width 16.1 Platelet Count 224 Mean Platelet Volume 7.6 Prothrombin Time 15.6 Prothromb Time International Ratio 1.5 Blood Urea Nitrogen LESS THAN 1 Creatinine 0.35 Random Glucose 115 Total Protein 5.6 Albumin 2.1 Calcium Level 7.8 Magnesium Level 1.3 Alkaline Phosphatase 143 Aspartate Amino Transf (AST/SGOT) 120 Alanine Aminotransferase (ALT/SGPT) 30 Total Bilirubin 0.4 Direct Bilirubin 0.2 Sodium Level 141 Potassium Level 3.5 Chloride Level 110 Carbon Dioxide Level 20.3 Anion Gap 11 Estimat Glomerular Filtration Rate 200 Indirect Bilirubin 0.2 Date/Time Source Procedure Growth Status 08/20/17 20:00 Blood Peripheral Aerobic Blood Culture - Final NO GROWTH IN 5 DAYS Complete 08/20/17 20:00 Blood Peripheral Anaerobic Blood Culture - Final NO GROWTH IN 5 DAYS Complete 08/21/17 07:45 Stool Stool Cryptosporidium Exam - Final NEGATIVE - NO CRYPTOSPORIDIUM ANTIGEN... Complete 08/21/17 07:45 Stool Stool Giardia Antigen (CARTER) - Final NEGATIVE - NO GIARDIA ANTIGEN DETECTE... Complete Imaging Last Impressions Chest X-Ray 08/28/17 0600 Signed Impressions: Service Date/Time: Monday, August 28, 2017 03:28 - CONCLUSION: Interval development of left lower lobe consolidation. Gonzalez Portillo MD Abdomen/Pelvis CT 08/21/17 0000 Signed Impressions: Service Date/Time: Monday, August 21, 2017 06:57 - CONCLUSION: 1. Right middle lobe pneumonia with infiltrates right lower lobe and lingula as well. 2. Thickening of the transverse colon wall could be technical, however colitis is not excluded. Fernando Euceda MD Physical Exam HEENT: Normocephalic; atraumatic CHEST: CTA CARDIAC: RRR ABDOMEN: mildly distended, nontender; bowel sounds active EXTREMITIES: No clubbing, cyanosis, or edema. restraints SKIN: spider angiomas; no rash; no jaundice. 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 intermittent lower abd cramping, intermittent epigastric pain. limited hx. never had EGD or colonoscopy. CT showed fatty liver, PNA, poss transverse colitis initially refused colonoscopy and now agrees - coagulopathy - INR 1.4 suspect some degree of liver dz. has spider angiomas , liver feels enlarged - leukocytosis - could be 2/2 diarrhea. stool cx pending. afebrile (08/23) --> Pt reports continued diarrhea- approx 5-6 a day. S/P colonoscopy yesterday --> Mild diverticulosis in sigmoid colon. Diffuse circumferential colitis in the ascending colon at the cecum. Mucosa was atrophic, friable and erythematous. Small sessile polyp, ranging between 3-5 mm in size, polypectomy. Stool studies negative. 08/24/17 path colon tubular adenoma. still wtih copious loose stool but it does appear less watery and clear than before. stools studies neg thus far, c diff neg. 08/25/17, continues with rectal Rose, dark liquid stool, previous CT showed possible colitis, urine is dark icteric color, denies any nausea or vomiting. Hemoglobin stable at 9.2 without obvious bleeding Labs alkaline phosphatase 146, AST 54, ALT 21 08/26/17 liquid stool but starting to have firm bits. pt lethargic. 08/27/17 seen while she was sleeping, has been agitate and requiring frequent ativan per CIWA protocol. watery diarrhea with some solid bits. not eating much. on cholestyramine 08/28/17 liquid brown stool in collection bag. lethargic. says she is eating. PLAN - low res diet - if pt not eating will need NGT and TF - TID cholestyramine - rifaximin - creon - Levaquin - Flagyl - continue supportive care Pt has been seen and examined by myself and and myself and this note is on her behalf (Camilla Vega) Camilla Vega Aug 28, 2017 11:04 Nay Salas MD Aug 28, 2017 12:59
[2017-08-28] MEDS: MAGNESIUM SULFATE INJ 2 GM in SODIUM CHLORIDE 0.9% INJ 96 ML IV PRN (11:41)
[2017-08-28] MEDS: ENOXAPARIN SODIUM 30 MG/0.3 ML SYRINGE SQ SCH (12:20)
[2017-08-28] MEDS: LEVOFLOXACIN 750 MG PREMIX INJ 150 ML IV SCH (13:44)
[2017-08-28] MEDS: POTASSIUM CHLORIDE 25 MEQ EFFERVESCENT TAB PO PRN (19:19)
[2017-08-28] MEDS: LORazepam 2 MG TAB PO PRN (23:04)
[2017-08-29] VITALS (20 sets, daily range): BP systolic 102–135; BP diastolic 71–90; PULSE 78–152; RESP 16–26; TEMP 98.5–99.3; O2SAT 85–98
[2017-08-29] MEDS: POTASSIUM CHLORIDE INJ 30 MEQ in DEXT 5%-NACL 0.9% 1000 ML INJ 1,000 ML IV SCH ×3 (02:25→22:50)
[2017-08-29] MEDS: methylPREDNISolone SOD SUCC 40 MG/1 ML VIAL IV PUSH SCH ×3 (05:04→20:56)
[2017-08-29] MEDS: RESP: ALBUTEROL 2.5 MG/IPRATROPIUM 0.5 MG NEB (SCH) NEB (07:50)
[2017-08-29 08:07] LABS: AUTOMATED NEUTROPHIL # 5.3 TH/MM3 (1.8-7.7); BASOPHIL % 0.5 % (0.0-2.0); HEMOGLOBIN 10.8 GM/DL (11.6-15.3); LYMPH % 10.8 % (9.0-44.0); LYMPHOCYTE # 0.7 TH/MM3 (1.0-4.8); MEAN CELL VOLUME 108.7 FL (80.0-100.0); MEAN CORPUSCULAR HEMOGLOBIN 36.6 PG (27.0-34.0); MEAN CORPUSCULAR HGB CONC 33.6 % (32.0-36.0); MEAN PLATELET VOLUME 7.5 FL (7.0-11.0); MONO % 8.9 % (0.0-8.0); MONOCYTE # 0.6 TH/MM3 (0-0.9); NEUT % 79.8 % (16.0-70.0); PLATELET COUNT 287 TH/MM3 (150-450); RED BLOOD COUNT 2.94 MIL/MM3 (4.00-5.30); RED CELL DISTRIBUTION WIDTH 15.8 % (11.6-17.2); WHITE BLOOD COUNT 6.7 TH/MM3 (4.0-11.0)
[2017-08-29 08:28] LABS: ALBUMIN 2.2 GM/DL (3.4-5.0); AST (GOT) 95 U/L (15-37); BICARBONATE 25.2 MEQ/L (21.0-32.0); BLOOD UREA NITROGEN 2 MG/DL (7-18); CALCIUM 7.8 MG/DL (8.5-10.1); CHLORIDE 110 MEQ/L (98-107); CREATININE 0.33 MG/DL (0.50-1.00); GLOMERULAR FILTRATION RATE 214 ML/MIN (>89); GLUCOSE,RANDOM 88 MG/DL (74-106); MAGNESIUM 1.6 MG/DL (1.5-2.5); SODIUM (NA) 144 MEQ/L (136-145)
[2017-08-29 08:32] LABS: ALKALINE PHOSPHATASE 156 U/L (45-117); ALT (GPT) 32 U/L (10-53); TOTAL BILIRUBIN ADULT 0.3 MG/DL (0.2-1.0); TOTAL PROTEIN 5.9 GM/DL (6.4-8.2)
[2017-08-29] MEDS: REMOVE OLD PATCH T-DERMAL SCH (09:00)
[2017-08-29] MEDS: LIPASE/PROTEASE/AMYLASE (24,000/76,000/120,000) CAP PO SCH ×3 (10:11→17:43)
[2017-08-29] MEDS: THIAMINE INJ 100 MG in SODIUM CHLORIDE 0.9% INJ 100 ML IV SCH (10:11)
[2017-08-29] MEDS: chlordiazePOXIDE 25 MG CAP PO SCH ×3 (10:11→17:45)
[2017-08-29] MEDS: RIFAXIMIN 550 MG TAB PO SCH ×2 (10:11→20:56)
[2017-08-29] MEDS: CHOLESTYRAMINE 4 GM PACKET PO SCH ×3 (10:11→17:45)
[2017-08-29] MEDS: SODIUM CHLORIDE 0.9% FLUSH 10 ML FLUSH IV FLUSH SCH ×2 (10:12→20:56)
[2017-08-29] MEDS: NICOTINE 21 MG/24 HR PATCH T-DERMAL SCH (10:12)
[2017-08-29] MEDS: ENOXAPARIN SODIUM 30 MG/0.3 ML SYRINGE SQ SCH (14:09)
[2017-08-29] MEDS: LEVOFLOXACIN 750 MG PREMIX INJ 150 ML IV SCH (14:09)
--- NOTE | 2017-08-29 17:04 | HHI.PR ---
Subjective Remarks Follow-up sepsis, tachycardia. The patient is reporting pain in her wrists and in her left thigh. She also reports back pain. Per nursing, she has been quite agitated. She is still requiring restraints. Objective Vitals Vital Signs Date Time Temp Pulse Resp B/P (MAP) Pulse Ox O2 Delivery O2 Flow Rate FiO2 08/29/17 14:00 110 08/29/17 13:00 113 08/29/17 12:00 151 08/29/17 12:00 98.7 151 25 135/88 (104) 85 08/29/17 10:30 128 08/29/17 10:00 126 08/29/17 09:00 115 08/29/17 08:00 98.5 109 22 118/80 (93) 98 08/29/17 08:00 109 08/29/17 07:50 95 21 08/29/17 07:00 100 Nasal Cannula 2.00 08/29/17 07:00 88 08/29/17 06:00 95 08/29/17 04:00 92 08/29/17 04:00 98.5 99 16 126/90 (102) 98 08/29/17 02:00 97 08/29/17 00:00 78 08/29/17 00:00 98.5 91 16 119/88 (98) 98 08/28/17 22:00 88 08/28/17 20:28 98 21 08/28/17 20:00 100 Nasal Cannula 2.00 08/28/17 20:00 98.7 88 16 108/79 (89) 98 08/28/17 20:00 88 08/28/17 19:09 20 08/28/17 18:00 81 08/28/17 17:00 92 I/O 08/28/17 08/28/17 08/28/17 08/29/17 08/29/17 08/29/17 07:00 15:00 23:00 07:00 15:00 23:00 Intake Total 1707 ml 201 ml 1965 ml 450 ml Output Total 2050 ml 1500 ml 1875 ml Balance -343 ml 201 ml 465 ml -1425 ml Intake Oral 240 ml 600 ml 450 ml IV Total 1467 ml 201 ml 1365 ml Output Urine Total 1950 ml 1500 ml 1750 ml Stool Total 100 ml 125 ml # Bowel Movements 1 Result Diagram: 08/29/1771208/29/17 0713 Imaging Last Impressions Chest X-Ray 08/28/17 0600 Signed Impressions: Service Date/Time: Monday, August 28, 2017 03:28 - CONCLUSION: Interval development of left lower lobe consolidation. Gonzalez Portillo MD Abdomen/Pelvis CT 08/21/17 0000 Signed Impressions: Service Date/Time: Monday, August 21, 2017 06:57 - CONCLUSION: 1. Right middle lobe pneumonia with infiltrates right lower lobe and lingula as well. 2. Thickening of the transverse colon wall could be technical, however colitis is not excluded. Fernando Euceda MD Objective Remarks General: No acute distress. Heart: Regular rate and rhythm. No murmur. Lungs: Scattered rhonchi. Breathing is nonlabored. Abdomen: Soft, nontender, nondistended. Extremities: No lower extremity edema. Psych: Alert, oriented. Answers questions appropriately. Procedures Colonoscopy 08/22 Urinary Catheter: Yes Assessment to: Continue Rose insert reason: Prolonged Immobilization Vascular Central Line Catheter: No A/P Problem List: (1) Leukocytosis ICD Code: D72.829 - Elevated white blood cell count, unspecified Status: Acute (2) Diarrhea ICD Code: R19.7 - Diarrhea, unspecified Status: Acute (3) Hypokalemia ICD Code: E87.6 - Hypokalemia Status: Acute (4) Hyponatremia ICD Code: E87.1 - Hypo-osmolality and hyponatremia Status: Acute (5) Severe sepsis ICD Code: A41.9 - Sepsis, unspecified organism; R65.20 - Severe sepsis without septic shock (6) Lactic acidosis ICD Code: E87.2 - Acidosis (7) Acute diverticulitis ICD Code: K57.92 - Diverticulitis of intestine, part unspecified, without perforation or abscess without bleeding (8) Pneumonia ICD Code: J18.9 - Pneumonia, unspecified organism (9) Alcohol withdrawal ICD Code: F10.239 - Alcohol dependence with withdrawal, unspecified (10) Hypomagnesemia ICD Code: E83.42 - Hypomagnesemia Assessment and Plan 1. Severe sepsis, lactic acidosis: Secondary to acute diverticulitis, pneumonia. Patient has been on Levaquin and Flagyl 7 days. The patient is still tachycardic and blood pressure is borderline low. Consult infectious disease. Will likely need to adjust antibiotics. 2. Acute diverticulitis: Appreciate GI recommendations. Status post colonoscopy. Continue antibiotics. 3. Pneumonia: Continue supplemental oxygen. Continue Levaquin. 4. Electrolyte abnormalities: Hypokalemia, hyponatremia, hypomagnesemia. Monitor labs and supplement per ICU electrolyte replacement protocol. Magnesium , sodium, potassium improved. 5. Tachycardia: Likely secondary to sepsis, alcohol withdrawal. Monitor on telemetry. 6. Alcohol withdrawal: Continue CIWA protocol. Continue Librium. Seizure precautions. 7. Hypoglycemia: Secondary to decreased oral intake. Continue D5 in IV fluids. 8. Anemia: Likely dilutional component in addition to bone marrow suppression secondary to alcohol abuse. 9. DVT prophylaxis: SCDs, Lovenox. Discharge Planning Pending clinical improvement. Problem Qualifiers (1) Leukocytosis: Qualified Codes: D72.829 - Elevated white blood cell count, unspecified (2) Diarrhea: Qualified Codes: R19.7 - Diarrhea, unspecified Cali Skaggs MD Aug 29, 2017 17:04
--- NOTE | 2017-08-29 17:09 | HHI.GIFU ---
Subjective Remarks Pt resting in bed Soft wrist restraints Food tray at bedside, nothing eaten Denies nausea, vomiting. Remains with rectal tube with loose stool Denies abdominal pain (Carmel Deleon) Objective Vitals I&O Vital Signs Date Time Temp Pulse Resp B/P (MAP) Pulse Ox O2 Delivery O2 Flow Rate FiO2 08/29/17 14:00 110 08/29/17 13:00 113 08/29/17 12:00 151 08/29/17 12:00 98.7 151 25 135/88 (104) 85 08/29/17 10:30 128 08/29/17 10:00 126 08/29/17 09:00 115 08/29/17 08:00 98.5 109 22 118/80 (93) 98 08/29/17 08:00 109 08/29/17 07:50 95 21 08/29/17 07:00 100 Nasal Cannula 2.00 08/29/17 07:00 88 08/29/17 06:00 95 08/29/17 04:00 92 08/29/17 04:00 98.5 99 16 126/90 (102) 98 08/29/17 02:00 97 08/29/17 00:00 78 08/29/17 00:00 98.5 91 16 119/88 (98) 98 08/28/17 22:00 88 08/28/17 20:28 98 21 08/28/17 20:00 100 Nasal Cannula 2.00 08/28/17 20:00 98.7 88 16 108/79 (89) 98 08/28/17 20:00 88 08/28/17 19:09 20 08/28/17 18:00 81 I/O 08/28/17 08/28/17 08/28/17 08/29/17 08/29/17 08/29/17 07:00 15:00 23:00 07:00 15:00 23:00 Intake Total 1707 ml 201 ml 1965 ml 450 ml Output Total 2050 ml 1500 ml 1875 ml Balance -343 ml 201 ml 465 ml -1425 ml Intake Oral 240 ml 600 ml 450 ml IV Total 1467 ml 201 ml 1365 ml Output Urine Total 1950 ml 1500 ml 1750 ml Stool Total 100 ml 125 ml # Bowel Movements 1 Laboratory Laboratory Tests Test 08/29/17 07:13 White Blood Count 6.7 Red Blood Count 2.94 Hemoglobin 10.8 Hematocrit 32.0 Mean Corpuscular Volume 108.7 Mean Corpuscular Hemoglobin 36.6 Mean Corpuscular Hemoglobin Concent 33.6 Red Cell Distribution Width 15.8 Platelet Count 287 Mean Platelet Volume 7.5 Neutrophils (%) (Auto) 79.8 Lymphocytes (%) (Auto) 10.8 Monocytes (%) (Auto) 8.9 Eosinophils (%) (Auto) 0.0 Basophils (%) (Auto) 0.5 Neutrophils # (Auto) 5.3 Lymphocytes # (Auto) 0.7 Monocytes # (Auto) 0.6 Eosinophils # (Auto) 0.0 Basophils # (Auto) 0.0 CBC Comment DIFF FINAL Differential Comment Blood Urea Nitrogen 2 Creatinine 0.33 Random Glucose 88 Total Protein 5.9 Albumin 2.2 Calcium Level 7.8 Magnesium Level 1.6 Alkaline Phosphatase 156 Aspartate Amino Transf (AST/SGOT) 95 Alanine Aminotransferase (ALT/SGPT) 32 Total Bilirubin 0.3 Sodium Level 144 Potassium Level 3.8 Chloride Level 110 Carbon Dioxide Level 25.2 Anion Gap 9 Estimat Glomerular Filtration Rate 214 Date/Time Source Procedure Growth Status 08/20/17 20:00 Blood Peripheral Aerobic Blood Culture - Final NO GROWTH IN 5 DAYS Complete 08/20/17 20:00 Blood Peripheral Anaerobic Blood Culture - Final NO GROWTH IN 5 DAYS Complete 08/21/17 07:45 Stool Stool Cryptosporidium Exam - Final NEGATIVE - NO CRYPTOSPORIDIUM ANTIGEN... Complete 08/21/17 07:45 Stool Stool Giardia Antigen (CARTER) - Final NEGATIVE - NO GIARDIA ANTIGEN DETECTE... Complete Imaging Last Impressions Chest X-Ray 08/28/17 0600 Signed Impressions: Service Date/Time: Monday, August 28, 2017 03:28 - CONCLUSION: Interval development of left lower lobe consolidation. Gonzalez Portillo MD Abdomen/Pelvis CT 08/21/17 0000 Signed Impressions: Service Date/Time: Monday, August 21, 2017 06:57 - CONCLUSION: 1. Right middle lobe pneumonia with infiltrates right lower lobe and lingula as well. 2. Thickening of the transverse colon wall could be technical, however colitis is not excluded. Fernando Euceda MD Physical Exam HEENT: Normocephalic; atraumatic CHEST: Even/unlabored CARDIAC: RRR ABDOMEN: soft, nontender; bowel sounds active EXTREMITIES: No clubbing, cyanosis, or edema. SKIN: spider angiomas; no rash; no jaundice. 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 intermittent lower abd cramping, intermittent epigastric pain. limited hx. never had EGD or colonoscopy. CT showed fatty liver, PNA, poss transverse colitis initially refused colonoscopy and now agrees - coagulopathy - INR 1.4 suspect some degree of liver dz. has spider angiomas , liver feels enlarged - leukocytosis - could be 2/2 diarrhea. stool cx pending. afebrile (08/23) --> Pt reports continued diarrhea- approx 5-6 a day. S/P colonoscopy yesterday --> Mild diverticulosis in sigmoid colon. Diffuse circumferential colitis in the ascending colon at the cecum. Mucosa was atrophic, friable and erythematous. Small sessile polyp, ranging between 3-5 mm in size, polypectomy. Stool studies negative. 08/24/17 path colon tubular adenoma. still wtih copious loose stool but it does appear less watery and clear than before. stools studies neg thus far, c diff neg. 08/25/17, continues with rectal Rose, dark liquid stool, previous CT showed possible colitis, urine is dark icteric color, denies any nausea or vomiting. Hemoglobin stable at 9.2 without obvious bleeding Labs alkaline phosphatase 146, AST 54, ALT 21 08/26/17 liquid stool but starting to have firm bits. pt lethargic. 08/27/17 seen while she was sleeping, has been agitate and requiring frequent ativan per CIWA protocol. watery diarrhea with some solid bits. not eating much. on cholestyramine 08/28/17 liquid brown stool in collection bag. lethargic. says she is eating. (08/29) --> Pt alert and oriented x 3. Remains in soft wrist restraints. Food tray at bedside, none eaten. Rectal tube with loose stool. LFTs- improvement in AST today, ALT the same, mild increase in Alk phos Anemia- H/H remains stable PLAN - Monitor stool output - Creon - Cholestyramine - Xifaxan - Flagyl - Levaquin - Alcohol withdraw protocol - Encourage PO intake - NG with TF if continued poor PO intake now that pt is more alert can probably feed herself - Monitor LFTs - Further recommendations based on clinical course Pt has been seen and examined by myself and Dr. Salas and this note is written on her behalf (Carmel Deleon) Physician Comments agree with above if not better consider asacol tid (Nay Salas MD) Carmel Deleon Aug 29, 2017 17:09 Nay Salas MD Aug 29, 2017 19:35
[2017-08-29] MEDS: LORazepam 2 MG/ML VIAL IV PUSH PRN (17:43)
[2017-08-29] MEDS: metroNIDAZOLE 500 MG INJ 100 ML IV SCH ×2 (17:44→22:51)
--- NOTE | 2017-08-29 19:20 | EKG ---
Date Performed: 08/29/2017 Time Performed: 17:07:56 PTAGE: 47 years EKG: SINUS TACHYCARDIA ABNORMAL RHYTHM ECG Compared to prior electrocardiogram, rate has increas ed PREVIOUS TRACING : 08/23/2017 19.08 DOCTOR: Servando Herr Interpretating Date/Time 08/29/2017 19:20:45
[2017-08-30] VITALS (13 sets, daily range): BP systolic 110–142; BP diastolic 77–93; PULSE 68–154; RESP 16–27; TEMP 97.6–98.9; O2SAT 90–96
[2017-08-30] MEDS: methylPREDNISolone SOD SUCC 40 MG/1 ML VIAL IV PUSH SCH ×3 (05:46→21:14)
[2017-08-30] MEDS: metroNIDAZOLE 500 MG INJ 100 ML IV SCH ×3 (05:46→23:00)
[2017-08-30 06:26] LABS: AUTOMATED NEUTROPHIL # 3.8 TH/MM3 (1.8-7.7); BASOPHIL % 0.3 % (0.0-2.0); EOSINOPHIL % 0.1 % (0.0-4.0); HEMATOCRIT 31.1 % (35.0-46.0); HEMOGLOBIN 10.4 GM/DL (11.6-15.3); LYMPH % 7.4 % (9.0-44.0); LYMPHOCYTE # 0.3 TH/MM3 (1.0-4.8); MEAN CELL VOLUME 108.2 FL (80.0-100.0); MEAN CORPUSCULAR HGB CONC 33.3 % (32.0-36.0); MEAN PLATELET VOLUME 7.7 FL (7.0-11.0); MONO % 7.6 % (0.0-8.0); MONOCYTE # 0.3 TH/MM3 (0-0.9); NEUT % 84.6 % (16.0-70.0); PLATELET COUNT 291 TH/MM3 (150-450); RED BLOOD COUNT 2.87 MIL/MM3 (4.00-5.30); RED CELL DISTRIBUTION WIDTH 15.7 % (11.6-17.2); WHITE BLOOD COUNT 4.5 TH/MM3 (4.0-11.0)
[2017-08-30 06:45] LABS: ALBUMIN 2.2 GM/DL (3.4-5.0); AST (GOT) 122 U/L (15-37); BICARBONATE 25.8 MEQ/L (21.0-32.0); BLOOD UREA NITROGEN 2 MG/DL (7-18); CALCIUM 7.9 MG/DL (8.5-10.1); CHLORIDE 104 MEQ/L (98-107); CREATININE 0.33 MG/DL (0.50-1.00); GLOMERULAR FILTRATION RATE 214 ML/MIN (>89); GLUCOSE,RANDOM 99 MG/DL (74-106); MAGNESIUM 1.6 MG/DL (1.5-2.5); SODIUM (NA) 140 MEQ/L (136-145)
[2017-08-30 06:46] LABS: ALT (GPT) 30 U/L (10-53)
[2017-08-30 06:48] LABS: ALKALINE PHOSPHATASE 133 U/L (45-117); TOTAL BILIRUBIN ADULT 0.3 MG/DL (0.2-1.0); TOTAL PROTEIN 5.8 GM/DL (6.4-8.2)
[2017-08-30] MEDS: LIPASE/PROTEASE/AMYLASE (24,000/76,000/120,000) CAP PO SCH ×3 (08:38→17:36)
[2017-08-30] MEDS: RIFAXIMIN 550 MG TAB PO SCH ×2 (08:38→21:14)
[2017-08-30] MEDS: POTASSIUM CHLORIDE INJ 30 MEQ in DEXT 5%-NACL 0.9% 1000 ML INJ 1,000 ML IV SCH ×2 (08:38→17:35)
[2017-08-30] MEDS: CHOLESTYRAMINE 4 GM PACKET PO SCH ×3 (08:38→17:35)
[2017-08-30] MEDS: chlordiazePOXIDE 25 MG CAP PO SCH ×3 (08:38→17:36)
[2017-08-30] MEDS: SODIUM CHLORIDE 0.9% FLUSH 10 ML FLUSH IV FLUSH SCH ×2 (08:39→21:15)
[2017-08-30] MEDS: THIAMINE INJ 100 MG in SODIUM CHLORIDE 0.9% INJ 100 ML IV SCH (08:39)
[2017-08-30] MEDS: NICOTINE 21 MG/24 HR PATCH T-DERMAL SCH (08:40)
[2017-08-30] MEDS: REMOVE OLD PATCH T-DERMAL SCH (08:40)
--- NOTE | 2017-08-30 11:27 | HHI.GIFU ---
Subjective Remarks Pt sitting up in bed, doing PT. She ate a "huge" breakfast on account of no one brought her dinner last night. (Camilla Vega) Objective Vitals I&O Vital Signs Date Time Temp Pulse Resp B/P (MAP) Pulse Ox O2 Delivery O2 Flow Rate FiO2 08/30/17 09:09 95 Nasal Cannula 2.00 08/30/17 06:00 84 08/30/17 04:00 97.7 68 16 110/78 (89) 96 08/30/17 04:00 68 08/30/17 02:00 78 08/30/17 00:00 78 08/30/17 00:00 98.9 80 27 111/77 (88) 94 08/29/17 22:03 18 08/29/17 22:00 78 08/29/17 20:00 99.3 104 26 110/81 (91) 93 08/29/17 20:00 100 08/29/17 19:00 Nasal Cannula 2.00 08/29/17 18:51 95 21 08/29/17 18:00 102 08/29/17 17:00 109 08/29/17 16:00 140 08/29/17 16:00 99.0 140 25 102/71 (81) 95 08/29/17 15:00 152 08/29/17 14:00 110 08/29/17 13:00 113 08/29/17 12:00 151 08/29/17 12:00 98.7 151 25 135/88 (104) 85 I/O 08/29/17 08/29/17 08/29/17 08/30/17 08/30/17 08/30/17 07:00 15:00 23:00 07:00 15:00 23:00 Intake Total 450 ml 1266 ml 2015 ml 100 ml Output Total 1875 ml 2050 ml 3500 ml Balance -1425 ml 1266 ml -35 ml -3400 ml Intake Oral 450 ml 900 ml IV Total 1266 ml 1115 ml 100 ml Output Urine Total 1750 ml 1850 ml 3500 ml Stool Total 125 ml 200 ml 0 ml Laboratory Laboratory Tests Test 08/30/17 05:40 White Blood Count 4.5 Red Blood Count 2.87 Hemoglobin 10.4 Hematocrit 31.1 Mean Corpuscular Volume 108.2 Mean Corpuscular Hemoglobin 36.0 Mean Corpuscular Hemoglobin Concent 33.3 Red Cell Distribution Width 15.7 Platelet Count 291 Mean Platelet Volume 7.7 Neutrophils (%) (Auto) 84.6 Lymphocytes (%) (Auto) 7.4 Monocytes (%) (Auto) 7.6 Eosinophils (%) (Auto) 0.1 Basophils (%) (Auto) 0.3 Neutrophils # (Auto) 3.8 Lymphocytes # (Auto) 0.3 Monocytes # (Auto) 0.3 Eosinophils # (Auto) 0.0 Basophils # (Auto) 0.0 CBC Comment AUTO DIFF Differential Comment AUTO DIFF CONFIRMED Blood Urea Nitrogen 2 Creatinine 0.33 Random Glucose 99 Total Protein 5.8 Albumin 2.2 Calcium Level 7.9 Magnesium Level 1.6 Alkaline Phosphatase 133 Aspartate Amino Transf (AST/SGOT) 122 Alanine Aminotransferase (ALT/SGPT) 30 Total Bilirubin 0.3 Sodium Level 140 Potassium Level 3.7 Chloride Level 104 Carbon Dioxide Level 25.8 Anion Gap 10 Estimat Glomerular Filtration Rate 214 Date/Time Source Procedure Growth Status 08/20/17 20:00 Blood Peripheral Aerobic Blood Culture - Final NO GROWTH IN 5 DAYS Complete 08/20/17 20:00 Blood Peripheral Anaerobic Blood Culture - Final NO GROWTH IN 5 DAYS Complete 08/21/17 07:45 Stool Stool Cryptosporidium Exam - Final NEGATIVE - NO CRYPTOSPORIDIUM ANTIGEN... Complete 08/21/17 07:45 Stool Stool Giardia Antigen (CARTER) - Final NEGATIVE - NO GIARDIA ANTIGEN DETECTE... Complete Imaging Last Impressions Chest X-Ray 08/28/17 0600 Signed Impressions: Service Date/Time: Monday, August 28, 2017 03:28 - CONCLUSION: Interval development of left lower lobe consolidation. Gonzalez Portillo MD Abdomen/Pelvis CT 08/21/17 0000 Signed Impressions: Service Date/Time: Monday, August 21, 2017 06:57 - CONCLUSION: 1. Right middle lobe pneumonia with infiltrates right lower lobe and lingula as well. 2. Thickening of the transverse colon wall could be technical, however colitis is not excluded. Fernando Euceda MD Physical Exam HEENT: Normocephalic; atraumatic CHEST: Even/unlabored CARDIAC: RRR ABDOMEN: soft, nontender; bowel sounds active water stool with some solid bits in bag EXTREMITIES: No clubbing, cyanosis, or edema. SKIN: spider angiomas; no rash; no jaundice. EXPERIMENTAL WELDER: Awake and alert x 3 (Camilla Vega) Assessment and Plan Plan ASSESSMENT - diarrhea - 2 weeks of watery nearly neon yellow, yellow staining stool. intermittent lower abd cramping, intermittent epigastric pain. limited hx. never had EGD or colonoscopy. CT showed fatty liver, PNA, poss transverse colitis initially refused colonoscopy and now agrees - coagulopathy - INR 1.4 suspect some degree of liver dz. has spider angiomas , liver feels enlarged - leukocytosis - could be 2/2 diarrhea. stool cx pending. afebrile (08/23) --> Pt reports continued diarrhea- approx 5-6 a day. S/P colonoscopy yesterday --> Mild diverticulosis in sigmoid colon. Diffuse circumferential colitis in the ascending colon at the cecum. Mucosa was atrophic, friable and erythematous. Small sessile polyp, ranging between 3-5 mm in size, polypectomy. Stool studies negative. 08/24/17 path colon tubular adenoma. still wtih copious loose stool but it does appear less watery and clear than before. stools studies neg thus far, c diff neg. 08/25/17, continues with rectal Rose, dark liquid stool, previous CT showed possible colitis, urine is dark icteric color, denies any nausea or vomiting. Hemoglobin stable at 9.2 without obvious bleeding Labs alkaline phosphatase 146, AST 54, ALT 21 08/26/17 liquid stool but starting to have firm bits. pt lethargic. 08/27/17 seen while she was sleeping, has been agitate and requiring frequent ativan per CIWA protocol. watery diarrhea with some solid bits. not eating much. on cholestyramine 08/28/17 liquid brown stool in collection bag. lethargic. says she is eating. (08/29) --> Pt alert and oriented x 3. Remains in soft wrist restraints. Food tray at bedside, none eaten. Rectal tube with loose stool. LFTs- improvement in AST today, ALT the same, mild increase in Alk phos Anemia- H/H remains stable 08/30/17 pt alert, doing better. ate large breakfast. still with liquid stool. PLAN - trial asacol - Monitor stool output - Creon - Cholestyramine - Xifaxan - Flagyl - Levaquin - Alcohol withdraw protocol - Monitor LFTs - Further recommendations based on clinical course Pt has been seen and examined by myself and Dr. Salas and this note is written on her behalf (Camilla Vega) Physician Comments seen, examined agree with above diarrhea improved (Nay Salas MD) Camilla Vega Aug 30, 2017 11:27 Nay Salas MD Aug 30, 2017 15:58
[2017-08-30] MEDS: ENOXAPARIN SODIUM 30 MG/0.3 ML SYRINGE SQ SCH (12:09)
[2017-08-30] MEDS: LEVOFLOXACIN 750 MG PREMIX INJ 150 ML IV SCH (12:09)
--- NOTE | 2017-08-30 12:30 | PD.PSY.CON ---
Provisional Diagnosis Admission Date Aug 20, 2017 at 20:35 [place]. Delirium, alcohol withdrawal, alcohol use disorder History of Present Illness Service Psychiatry Consult Requested By Dr. Skaggs Reason for Consult Agitation, anxiety, confusion Primary Care Physician Unknown HPI Patient is a 47-year-old woman 1 child, unemployed, supported financially by a boyfriend and parents, no formal past psychiatric history, no previous psychiatric admissions, no previous suicide attempt or self-injurious behavior, substance use history significant for alcohol use disorder, currently admitted for sepsis secondary to acute diverticulitis, pneumonia and alcohol withdrawal dictated, confused and in restraints which psychiatry was consulted for evaluation. Discussion nursing staff reported the patient had been agitated , confused in restraints recently as she is not was attempting to try and pull lines out. Patient did not receive any ETO and has not required any Ativan for withdrawal today. Patient was found lying hospital bed, noted to have restraints in place but with some latitude for patient to be able to move her arms comfortably. Patient was alert and oriented 3, was not oriented to situation believing that she was admitted to the hospital after her doctor had told her that she needed to come to the hospital was unclear to the reasons why. Patient was able to state that she was in restraints to keep her from going to the bathroom and falling. Discussion about her current treatment with alcohol withdrawal was reviewed which patient was noted to have denial of severity from alcohol use, currently in precontemplation phase toward engaging in treatment for the same. Patient denies having had any withdrawal from alcohol in the past the patient has been drinking daily between 1-4 drinks per day. When asked about why she was given medications last evening for agitation , was not able to recall the events or reasons why she was given medications. Patient states she had no intention of getting off of the bed or pulling any lines stating that she has been cooperative with staff. Patient denies any breast depressive, manic or psychotic symptoms at this time. Patient denying any perceptual disturbances, no delusional material elicited. Patient reports feeling "fine" denying SI, HI, AVH or delusions. Past Family Social History Coded Allergies: No Known Allergies (Verified Allergy, Unknown, 08/20/17) Reported Medications Sertraline (Zoloft) 50 Mg Tab, 50 MG PO DAILY, #30 TAB 0 Refills 08/20/17 Current Medications Medications (Trade) Dose Ordered Sig/Artis Route Start Time Stop Time Status Last Admin (NS Flush) 2 ml UNSCH PRN IV FLUSH 08/20/17 20:30 08/23/17 18:24 (NS Flush) 2 ml BID IV FLUSH 08/20/17 21:00 08/30/17 08:39 (Narcan Inj) 0.4 mg UNSCH PRN IV PUSH 08/20/17 20:30 (Romazicon Inj) 0.2 mg Q1M PRN IV PUSH 08/20/17 20:30 (Ativan) 1 mg Q4H PRN PO 08/20/17 20:30 08/26/17 18:09 (Ativan Inj) 1 mg Q4H PRN IV PUSH 08/20/17 20:30 08/26/17 09:46 (Ativan) 2 mg Q2H PRN PO 08/20/17 20:30 08/28/17 23:04 (Ativan Inj) 2 mg Q2H PRN IV PUSH 08/20/17 20:30 08/28/17 00:11 (Ativan Inj) 2 mg Q1H PRN IV PUSH 08/20/17 20:30 08/27/17 14:09 (Ativan Inj) 2 mg Q15M PRN IV PUSH 08/20/17 20:30 08/24/17 05:03 (Habitrol 21 Mg Patch.24 Hr) 1 patch DAILY T-DERMAL 08/21/17 13:00 08/30/17 08:40 Miscellaneous Information 1 DAILY T-DERMAL 08/22/17 09:00 08/30/17 08:40 Miscellaneous Information Patient in critical care unit? Ass... [id number] .XX 08/21/17 13:30 (Roxicodone) 5 mg Q4H PRN PO 08/21/17 17:30 08/26/17 13:11 (Roxicodone) 10 mg Q4H PRN PO 08/21/17 17:30 08/29/17 21:03 Potassium Chloride 30 meq/ Dextrose/Sodium Chloride 1,015 ml @ 125 mls/hr Q8H8M IV 08/22/17 08:45 08/30/17 08:38 Potassium Chloride 100 ml @ 50 mls/hr Q2H PRN IV 08/22/17 08:45 Potassium Chloride 100 ml @ 50 mls/hr Q2H PRN IV 08/22/17 08:45 08/24/17 08:07 (K-Lyte Cl Eff) 50 meq UNSCH PRN PO 08/22/17 08:45 08/28/17 19:19 Potassium Chloride 100 ml @ 25 mls/hr UNSCH PRN IV 08/22/17 08:45 Potassium Chloride 100 ml @ 50 mls/hr Q2H PRN IV 08/22/17 08:45 Magnesium Sulfate 4 gm/Sodium Chloride 100 ml @ 50 mls/hr UNSCH PRN IV 08/22/17 08:45 (Mag-Ox) 800 mg UNSCH PRN PO 08/22/17 08:45 Magnesium Sulfate 2 gm/Sodium Chloride 100 ml @ 50 mls/hr UNSCH PRN IV 08/22/17 08:45 08/28/17 11:41 (K-Phos) 2,000 mg Q4H PRN PO 08/22/17 08:45 Sodium Phosphate 30 mmol/Sodium Chloride 250 ml @ 42 mls/hr UNSCH PRN IV 08/22/17 08:45 (K-Phos) 2,000 mg UNSCH PRN PO/TUBE 08/22/17 08:45 Potassium Phosphate 30 mmol/ Sodium Chloride 260 ml @ 42 mls/hr UNSCH PRN IV 08/22/17 08:45 Levofloxacin/ Dextrose 150 ml @ 100 mls/hr Q24H IV 08/22/17 14:00 08/30/17 12:09 Metronidazole 100 ml @ 100 mls/hr Q8H IV 08/22/17 15:00 08/30/17 05:46 (Haldol Inj) 2 mg Q15M PRN IM 08/23/17 21:30 08/27/17 08:00 (SoluMEDROL INJ) 40 mg Q8HR IV PUSH 08/25/17 10:30 08/30/17 12:09 (Duoneb Neb) 1 ampule Q2HR NEB PRN NEB 08/25/17 10:30 (Librium) 25 mg TID PO 08/25/17 11:00 08/30/17 12:09 (Lovenox Inj) 30 mg Q24H SQ 08/25/17 12:00 08/30/17 12:09 (Questran 4 Gm Pkt) 4 gm TID PO 08/26/17 13:00 08/30/17 12:09 (Xifaxan) 550 mg BID PO 08/27/17 21:00 08/30/17 08:38 (Creon 24-76-120) 2 cap TID PO 08/27/17 13:00 08/30/17 12:09 Thiamine HCl 100 mg/Sodium Chloride 101 ml @ 101 mls/hr DAILY IV 08/28/17 09:00 08/30/17 08:39 (Tylenol) 650 mg Q4H PRN PO 08/27/17 11:45 (Ativan Inj) 0.5 mg Q4H PRN IV PUSH 08/29/17 15:45 08/29/17 17:43 (Asacol Hd Dr) 1,600 mg Q8HR PO 08/30/17 14:00 Physical Exam Vital Signs Vital Signs Date Time Temp Pulse Resp B/P (MAP) Pulse Ox O2 Delivery O2 Flow Rate FiO2 08/30/17 09:09 95 Nasal Cannula 2.00 08/30/17 06:00 84 08/30/17 04:00 97.7 16 110/78 (89) 08/29/17 18:51 21 I/O 08/30/17 08/30/17 08/31/17 08:00 16:00 00:00 Intake Total 100 ml Output Total 3500 ml Balance -3400 ml Lab Results Test 08/30/17 05:40 White Blood Count 4.5 TH/MM3 Red Blood Count 2.87 MIL/MM3 Hemoglobin 10.4 GM/DL Hematocrit 31.1 % Mean Corpuscular Volume 108.2 FL Mean Corpuscular Hemoglobin 36.0 PG Mean Corpuscular Hemoglobin Concent 33.3 % Red Cell Distribution Width 15.7 % Platelet Count 291 TH/MM3 Mean Platelet Volume 7.7 FL Neutrophils (%) (Auto) 84.6 % Lymphocytes (%) (Auto) 7.4 % Monocytes (%) (Auto) 7.6 % Eosinophils (%) (Auto) 0.1 % Basophils (%) (Auto) 0.3 % Neutrophils # (Auto) 3.8 TH/MM3 Lymphocytes # (Auto) 0.3 TH/MM3 Monocytes # (Auto) 0.3 TH/MM3 Eosinophils # (Auto) 0.0 TH/MM3 Basophils # (Auto) 0.0 TH/MM3 CBC Comment AUTO DIFF Differential Comment AUTO DIFF CONFIRMED Blood Urea Nitrogen 2 MG/DL Creatinine 0.33 MG/DL Random Glucose 99 MG/DL Total Protein 5.8 GM/DL Albumin 2.2 GM/DL Calcium Level 7.9 MG/DL Magnesium Level 1.6 MG/DL Alkaline Phosphatase 133 U/L Aspartate Amino Transf (AST/SGOT) 122 U/L Alanine Aminotransferase (ALT/SGPT) 30 U/L Total Bilirubin 0.3 MG/DL Sodium Level 140 MEQ/L Potassium Level 3.7 MEQ/L Chloride Level 104 MEQ/L Carbon Dioxide Level 25.8 MEQ/L Anion Gap 10 MEQ/L Estimat Glomerular Filtration Rate 214 ML/MIN Date/Time Source Procedure Growth Status 08/20/17 20:00 Blood Peripheral Aerobic Blood Culture - Final NO GROWTH IN 5 DAYS Complete 08/20/17 20:00 Blood Peripheral Anaerobic Blood Culture - Final NO GROWTH IN 5 DAYS Complete 08/21/17 07:45 Stool Stool Cryptosporidium Exam - Final NEGATIVE - NO CRYPTOSPORIDIUM ANTIGEN... Complete 08/21/17 07:45 Stool Stool Giardia Antigen (CARTER) - Final NEGATIVE - NO GIARDIA ANTIGEN DETECTE... Complete Mental Status Examination Appearance: Disheveled Consciousness: Alert Orientation: Person, Place, Date/Time Speech: Slow (Slightly) Language: Adequate Fund of Knowledge: Inadequate Attention and Concentration: Adequate Memory: Impaired Mood: Other Affect: Anxious Thought Process & Associations: Other ([place]) Thought Content: Appropriate Hallucination Type: None Delusion Type: None Suicidal Ideation: No Suicidal Plan: No Suicidal Intention: No Homicidal Ideation: No Homicidal Plan: No Homicidal Intention: No Insight: Poor Judgment: Poor Assessment & Plan Problem List: (1) Delirium, withdrawal, alcoholic ICD Codes: F10.231 - Alcohol dependence with withdrawal delirium Assessment & Plan Patient is a 47-year-old woman with no formal past psychiatric history but has significant alcohol use disorder currently admitted for sepsis secondary to acute diverticulitis, pneumonia, and alcohol withdrawal which during admission had been actively withdrawing requiring medications for agitation and required restraints. Patient at this time likely with continued episodes of delirium which will continue to wax and wane secondary to withdrawal from alcohol. Continue CIWA protocol, continue Librium taper. May increase Haldol to 5 mg every 6 hours as needed agitation. Can consider releasing restraints the patient with continued behavioral control as she has not required any medication for agitation since last evening. Continue to monitor mood and behavior. Continue recommendations as her prior medical team. Consult appreciated. Ventura Barr MD Aug 30, 2017 12:30
[2017-08-30] MEDS: CEFEPIME INJ 1,000 MG in SODIUM CHLORIDE 0.9% INJ 100 ML IV SCH ×2 (14:46→22:31)
[2017-08-30] MEDS: MESALAMINE HD 800 MG DELAYED RELEASE TAB PO SCH ×2 (15:25→21:14)
--- NOTE | 2017-08-30 15:29 | MB ---
cc: Trace Pina MD DATE: 08/30/2017 REQUESTING PHYSICIAN: Dr. Skaggs. REASON FOR CONSULTATION: Sepsis, pneumonia. HISTORY OF PRESENT ILLNESS: This is a 47-year-old white female who was admitted to the hospital on 08/20/2017. She was evaluated for abnormal EKG and was sent to the hospital from [facility]. She had denied complaints when she was evaluated in the emergency department. She was afebrile. Heart rate was 110 and white count was 16.3 and a lactic acid level was elevated at 7.8. She was noted to have hypokalemia and hyponatremia. The patient was reported to be having diarrhea before admission. Currently, she is awake. She has a very flat affect. She is a very poor historian. She was noted to have marked elevation in alcohol level on admission and has been diagnosed with alcohol delirium. She has been confused per the medical notes. Her workup for diarrhea includes negative Clostridium difficile, negative ova and parasites. She was also noted to have acute diverticulitis. The colon biopsy also revealed tubular adenoma at the ascending colon. The patient has no fever. She had one elevated temperature of 100.7 degrees on 08/27/2017. She has been on IV antibiotics in the form of Flagyl and Levaquin. Blood cultures on admission were negative. Her white blood cell count has been normal since 08/22/2017. Chest x-ray was performed on 08/20/2017 and at that time, it showed lingular and right middle lobe airspace disease. Repeated chest x-ray on 08/25/2017 showed concern for pneumonia within the basilar aspect of the left upper lung. Chest x-ray repeated on 08/28/2017 shows development of left lower lobe consolidation. The patient tells me that she is coughing, but not producing sputum. However, she tells me she might be able to give a sputum sample. She denies having passed out at any time prior to admission. Her alcohol level on admission was 285. PAST MEDICAL HISTORY: 1. Alcoholism. 2. Positive tobacco use 3. Depression. 4. Neuropathy. ALLERGIES: NO KNOWN DRUG ALLERGIES. MEDICATIONS: 1. Levaquin. 2. Metronidazole. 3. Rifaximin. 4. Ativan p.r.n. 5. Librium 6. Lovenox. 7. Questran. 8. Methylprednisolone. 9. Potassium. 10. Oxycodone p.r.n. 11. Nicotine patch. SOCIAL HISTORY: Positive tobacco, positive alcohol. FAMILY HISTORY: Noncontributory. REVIEW OF SYSTEMS: Difficult to obtain because the patient has a flat affect and does not really volunteer responses. Positive for diarrhea. PHYSICAL EXAMINATION: GENERAL: This is a well-developed female who is in no acute distress. She is awake and alert and oriented. VITAL SIGNS: Temperature 97.7, BP 128/85, respirations 25, heart rate 89. HEENT: Head is atraumatic. Extraocular movements are grossly intact. Pupils reactive to light. No icterus. The sclerae are clear. The pupils are dilated. No conjunctival erythema. Oropharynx moist mucosa. NECK: Supple without adenopathy or swelling. LUNGS: Rhonchi at the left base. HEART: Regular S1 and S2 without murmurs, rubs or gallops. ABDOMEN: Bowel sounds present. Soft, nontender. RECTAL: Not performed. EXTREMITIES: No clubbing, cyanosis or edema. SKIN: No rash. NEUROLOGIC: No gross focal findings. PSYCHIATRIC: The patient and cooperative with a flat affect. LABORATORY DATA: WBC 4.5, platelets 291, 84% neutrophils, hemoglobin 10.4. Estimated GFR of 79, sodium 143, BUN 2, creatinine 0.33, sodium 140. AST 122, ALT is 30. IMPRESSION: 1. Pneumonia involving the left lower lobe. The patient had prior chest x-ray that showed possible involvement of the basal aspect of the left upper lung, probably secondary to aspiration. 2. Alcoholism. 3. Diarrhea. Negative Clostridium difficile. Patient noted to have tubular adenoma on colonoscopy. RECOMMENDATIONS: 1. Discontinue Levaquin. 2. Add cefepime for pulmonary coverage. 3. Monitor clinical response. 4. Follow chest x-ray for evidence of resolution. 5. Attempt to obtain sputum for culture. 6. The patient also on Flagyl and can continue given diagnoses of acute diverticulitis. Thank you for this consultation. I will monitor the patient's progress along with you and will make further recommendations on followup. MD ANTONIA Griggs/ERNESTINE , 02:34 PM , 03:28 PM
--- NOTE | 2017-08-30 15:30 | HHI.PR ---
Subjective Remarks Follow up sepsis. Patient states that she feels better today. She still has watery diarrhea. Denies chest pain, dyspnea. Objective Vitals Vital Signs Date Time Temp Pulse Resp B/P (MAP) Pulse Ox O2 Delivery O2 Flow Rate FiO2 08/30/17 12:00 89 08/30/17 12:00 97.7 89 25 128/85 (99) 94 08/30/17 10:00 154 08/30/17 09:09 95 Nasal Cannula 2.00 08/30/17 08:00 98.3 71 20 142/87 (105) 90 08/30/17 08:00 71 08/30/17 07:00 100 Nasal Cannula 2.00 08/30/17 06:00 84 08/30/17 04:00 97.7 68 16 110/78 (89) 96 08/30/17 04:00 68 08/30/17 02:00 78 08/30/17 00:00 78 08/30/17 00:00 98.9 80 27 111/77 (88) 94 08/29/17 22:03 18 08/29/17 22:00 78 08/29/17 20:00 99.3 104 26 110/81 (91) 93 08/29/17 20:00 100 08/29/17 19:00 Nasal Cannula 2.00 08/29/17 18:51 95 21 08/29/17 18:00 102 08/29/17 17:00 109 08/29/17 16:00 140 08/29/17 16:00 99.0 140 25 102/71 (81) 95 I/O 08/29/17 08/29/17 08/29/17 08/30/17 08/30/17 08/30/17 07:00 15:00 23:00 07:00 15:00 23:00 Intake Total 450 ml 1266 ml 2015 ml 100 ml Output Total 1875 ml 2050 ml 3500 ml Balance -1425 ml 1266 ml -35 ml -3400 ml Intake Oral 450 ml 900 ml IV Total 1266 ml 1115 ml 100 ml Output Urine Total 1750 ml 1850 ml 3500 ml Stool Total 125 ml 200 ml 0 ml Result Diagram: 08/30/17 0540 08/30/17 0540 Imaging Last Impressions Chest X-Ray 08/28/17 06 Signed Impressions: Service Date/Time: Monday, August 28, 2017 03:28 - CONCLUSION: Interval development of left lower lobe consolidation. Gonzalez Portillo MD Abdomen/Pelvis CT 08/21/17 0000 Signed Impressions: Service Date/Time: Monday, August 21, 2017 06:57 - CONCLUSION: 1. Right middle lobe pneumonia with infiltrates right lower lobe and lingula as well. 2. Thickening of the transverse colon wall could be technical, however colitis is not excluded. Fernando Euceda MD Objective Remarks General: No acute distress. Heart: Regular rate and rhythm. No murmur. Lungs: Scattered rhonchi. Breathing is nonlabored. Abdomen: Soft, nontender, nondistended. Extremities: No lower extremity edema. Psych: Alert, oriented. Answers questions appropriately. Procedures Colonoscopy 08/22 Urinary Catheter: No Vascular Central Line Catheter: No A/P Problem List: (1) Leukocytosis ICD Code: D72.829 - Elevated white blood cell count, unspecified Status: Acute (2) Diarrhea ICD Code: R19.7 - Diarrhea, unspecified Status: Acute (3) Hypokalemia ICD Code: E87.6 - Hypokalemia Status: Acute (4) Hyponatremia ICD Code: E87.1 - Hypo-osmolality and hyponatremia Status: Acute (5) Severe sepsis ICD Code: A41.9 - Sepsis, unspecified organism; R65.20 - Severe sepsis without septic shock (6) Lactic acidosis ICD Code: E87.2 - Acidosis (7) Acute diverticulitis ICD Code: K57.92 - Diverticulitis of intestine, part unspecified, without perforation or abscess without bleeding (8) Pneumonia ICD Code: J18.9 - Pneumonia, unspecified organism (9) Alcohol withdrawal ICD Code: F10.239 - Alcohol dependence with withdrawal, unspecified (10) Hypomagnesemia ICD Code: E83.42 - Hypomagnesemia Assessment and Plan 1. Severe sepsis, lactic acidosis: Secondary to acute diverticulitis, pneumonia. Patient has been on Levaquin and Flagyl 7 days. The patient is still tachycardic and blood pressure is borderline low. Appreciate infectious disease recommendations. Discussed with Dr. Pina. 2. Acute diverticulitis: Appreciate GI recommendations. Status post colonoscopy. Continue antibiotics. Still having diarrhea. Asacol added. 3. Pneumonia: Continue supplemental oxygen. Continue antibiotics per infectious disease recommendations. 4. Electrolyte abnormalities: Hypokalemia, hyponatremia, hypomagnesemia. Monitor labs and supplement per ICU electrolyte replacement protocol. Magnesium , sodium, potassium improved. 5. Tachycardia: Likely secondary to sepsis, alcohol withdrawal. Monitor on telemetry. Heart rate improved. 6. Alcohol withdrawal: Continue CIWA protocol. Continue Librium. Seizure precautions. 7. Hypoglycemia: Secondary to decreased oral intake. Continue D5 in IV fluids. 8. Anemia: Likely dilutional component in addition to bone marrow suppression secondary to alcohol abuse. H/H stable. 9. DVT prophylaxis: SCDs, Lovenox. 10. Agitation, anxiety: Appreciate Psychiatry recommendations. Discharge Planning Pending clinical improvement. Problem Qualifiers (1) Leukocytosis: Qualified Codes: D72.829 - Elevated white blood cell count, unspecified (2) Diarrhea: Qualified Codes: R19.7 - Diarrhea, unspecified Cali Skaggs MD Aug 30, 2017 15:30
[2017-08-30] MEDS: LORazepam 1 MG TAB PO PRN (22:31)
[2017-08-30] MEDS: HALOPERIDOL LACTATE 5 MG/ML AMP IM PRN (22:35)
[2017-08-31] VITALS (16 sets, daily range): BP systolic 100–150; BP diastolic 72–98; PULSE 70–141; RESP 18–29; TEMP 95.4–100.3; O2SAT 92–100
[2017-08-31] MEDS: POTASSIUM CHLORIDE INJ 30 MEQ in DEXT 5%-NACL 0.9% 1000 ML INJ 1,000 ML IV SCH (01:50)
[2017-08-31] MEDS: LORazepam 2 MG/ML VIAL IV PUSH PRN (02:31)
[2017-08-31] MEDS: metroNIDAZOLE 500 MG INJ 100 ML IV SCH ×3 (04:32→23:00)
[2017-08-31] MEDS: CEFEPIME INJ 1,000 MG in SODIUM CHLORIDE 0.9% INJ 100 ML IV SCH ×3 (04:33→23:00)
[2017-08-31] MEDS: methylPREDNISolone SOD SUCC 40 MG/1 ML VIAL IV PUSH SCH ×3 (04:33→23:02)
[2017-08-31] MEDS: MESALAMINE HD 800 MG DELAYED RELEASE TAB PO SCH ×3 (04:33→23:02)
[2017-08-31 06:19] LABS: AUTOMATED NEUTROPHIL # 5.7 TH/MM3 (1.8-7.7); BASOPHIL % 0.2 % (0.0-2.0); HEMATOCRIT 30.9 % (35.0-46.0); HEMOGLOBIN 10.5 GM/DL (11.6-15.3); LYMPH % 11.1 % (9.0-44.0); LYMPHOCYTE # 0.8 TH/MM3 (1.0-4.8); MEAN CELL VOLUME 106.9 FL (80.0-100.0); MEAN CORPUSCULAR HEMOGLOBIN 36.4 PG (27.0-34.0); MEAN PLATELET VOLUME 7.6 FL (7.0-11.0); MONO % 8.8 % (0.0-8.0); MONOCYTE # 0.6 TH/MM3 (0-0.9); NEUT % 79.9 % (16.0-70.0); PLATELET COUNT 307 TH/MM3 (150-450); RED BLOOD COUNT 2.89 MIL/MM3 (4.00-5.30); RED CELL DISTRIBUTION WIDTH 15.4 % (11.6-17.2); WHITE BLOOD COUNT 7.1 TH/MM3 (4.0-11.0)
[2017-08-31 06:50] LABS: ALBUMIN 2.3 GM/DL (3.4-5.0); AST (GOT) 111 U/L (15-37); BICARBONATE 24.4 MEQ/L (21.0-32.0); BLOOD UREA NITROGEN 4 MG/DL (7-18); CALCIUM 8.1 MG/DL (8.5-10.1); CHLORIDE 105 MEQ/L (98-107); CREATININE 0.42 MG/DL (0.50-1.00); GLOMERULAR FILTRATION RATE 162 ML/MIN (>89); GLUCOSE,RANDOM 92 MG/DL (74-106); MAGNESIUM 1.4 MG/DL (1.5-2.5); SODIUM (NA) 138 MEQ/L (136-145)
[2017-08-31 06:52] LABS: ALT (GPT) 34 U/L (10-53)
[2017-08-31 07:01] LABS: ALKALINE PHOSPHATASE 140 U/L (45-117); FREE T4 1.16 NG/DL (0.76-1.46); TOTAL BILIRUBIN ADULT 0.4 MG/DL (0.2-1.0)
[2017-08-31] MEDS: LIPASE/PROTEASE/AMYLASE (24,000/76,000/120,000) CAP PO SCH ×3 (08:26→17:46)
[2017-08-31] MEDS: CHOLESTYRAMINE 4 GM PACKET PO SCH ×3 (08:26→17:47)
[2017-08-31] MEDS: THIAMINE INJ 100 MG in SODIUM CHLORIDE 0.9% INJ 100 ML IV SCH (08:26)
[2017-08-31] MEDS: NICOTINE 21 MG/24 HR PATCH T-DERMAL SCH (08:26)
[2017-08-31] MEDS: RIFAXIMIN 550 MG TAB PO SCH ×2 (08:26→23:01)
[2017-08-31] MEDS: chlordiazePOXIDE 25 MG CAP PO SCH ×3 (08:27→17:46)
[2017-08-31] MEDS: SODIUM CHLORIDE 0.9% FLUSH 10 ML FLUSH IV FLUSH SCH ×2 (08:27→22:02)
[2017-08-31] MEDS: LORazepam 1 MG TAB PO PRN (08:27)
[2017-08-31] MEDS: REMOVE OLD PATCH T-DERMAL SCH (08:27)
[2017-08-31 09:07] LABS: BANDS 4 % (0-6); LYMPHOCYTES 9 % (9-44); MONOCYTES 7 % (0-8); MYELOCYTES 1 % (0-0); POLYS (SEG NEUTROPHILS) 79 % (16-70)
[2017-08-31 09:08] LABS: OVALOCYTES 1+ (NORMAL); POLYCHROMASIA 2.3 % (0.0-1.9)
--- NOTE | 2017-08-31 10:13 | HHI.GIFU ---
Subjective Remarks Pt sleeping during my exam Opens eyes, does not respond to my questions Rectal bag with 500 mL of loose, brown stool Food tray on bedside table, one bite of biscuit missing (Carmel Deleon) Objective Vitals I&O Vital Signs Date Time Temp Pulse Resp B/P (MAP) Pulse Ox O2 Delivery O2 Flow Rate FiO2 08/31/17 08:35 96 08/31/17 08:00 98.0 70 23 150/98 (115) 96 08/31/17 08:00 97 08/31/17 07:00 96 Nasal Cannula 2.00 08/31/17 06:00 80 08/31/17 04:00 94 08/31/17 04:00 97.6 94 24 124/83 (97) 93 08/31/17 02:00 110 08/31/17 00:55 92 21 08/31/17 00:00 97.3 113 28 119/83 (95) 08/31/17 00:00 113 08/30/17 22:00 104 08/30/17 20:00 97.6 86 24 128/79 (95) 91 08/30/17 20:00 86 08/30/17 19:00 93 Nasal Cannula 2.00 21 08/30/17 18:00 98 08/30/17 16:00 88 08/30/17 16:00 98.0 88 26 128/93 (105) 90 08/30/17 14:00 93 08/30/17 12:00 89 08/30/17 12:00 97.7 89 25 128/85 (99) 94 I/O 08/30/17 08/30/17 08/30/17 08/31/17 08/31/17 08/31/17 07:00 15:00 23:00 07:00 15:00 23:00 Intake Total 100 ml 2944 ml 900 ml Output Total 3500 ml 4750 ml 5250 ml Balance -3400 ml -1806 ml -4350 ml Intake Oral 900 ml 700 ml IV Total 100 ml 2044 ml 200 ml Output Urine Total 3500 ml 4650 ml 5200 ml Stool Total 0 ml 100 ml 50 ml Laboratory Laboratory Tests Test 08/31/17 05:50 White Blood Count 7.1 Red Blood Count 2.89 Hemoglobin 10.5 Hematocrit 30.9 Mean Corpuscular Volume 106.9 Mean Corpuscular Hemoglobin 36.4 Mean Corpuscular Hemoglobin Concent 34.0 Red Cell Distribution Width 15.4 Platelet Count 307 Mean Platelet Volume 7.6 Neutrophils (%) (Auto) 79.9 Lymphocytes (%) (Auto) 11.1 Monocytes (%) (Auto) 8.8 Eosinophils (%) (Auto) 0.0 Basophils (%) (Auto) 0.2 Neutrophils # (Auto) 5.7 Lymphocytes # (Auto) 0.8 Monocytes # (Auto) 0.6 Eosinophils # (Auto) 0.0 Basophils # (Auto) 0.0 CBC Comment AUTO DIFF Differential Total Cells Counted 100 Neutrophils % (Manual) 79 Band Neutrophils % 4 Lymphocytes % 9 Monocytes % 7 Neutrophils # (Manual) 6.0 Myelocytes 1 Differential Comment FINAL DIFF MANUAL Platelet Estimate NORMAL Platelet Morphology Comment NORMAL Polychromasia 2.3 Ovalocytes 1+ Blood Urea Nitrogen 4 Creatinine 0.42 Random Glucose 92 Total Protein 6.0 Albumin 2.3 Calcium Level 8.1 Magnesium Level 1.4 Alkaline Phosphatase 140 Aspartate Amino Transf (AST/SGOT) 111 Alanine Aminotransferase (ALT/SGPT) 34 Total Bilirubin 0.4 Sodium Level 138 Potassium Level 3.5 Chloride Level 105 Carbon Dioxide Level 24.4 Anion Gap 9 Estimat Glomerular Filtration Rate 162 Free Thyroxine 1.16 Thyroid Stimulating Hormone 3rd Gen 7.080 Date/Time Source Procedure Growth Status 08/20/17 20:00 Blood Peripheral Aerobic Blood Culture - Final NO GROWTH IN 5 DAYS Complete 08/20/17 20:00 Blood Peripheral Anaerobic Blood Culture - Final NO GROWTH IN 5 DAYS Complete 08/21/17 07:45 Stool Stool Cryptosporidium Exam - Final NEGATIVE - NO CRYPTOSPORIDIUM ANTIGEN... Complete 08/21/17 07:45 Stool Stool Giardia Antigen (CARTER) - Final NEGATIVE - NO GIARDIA ANTIGEN DETECTE... Complete 08/30/17 14:50 Sputum Expectorated Sputum Gram Stain - Final Resulted 08/30/17 14:50 Sputum Expectorated Sputum Sputum Culture Pending Resulted Imaging Last Impressions Chest X-Ray 08/28/17 0600 Signed Impressions: Service Date/Time: Monday, August 28, 2017 03:28 - CONCLUSION: Interval development of left lower lobe consolidation. Gonzalez Portillo MD Abdomen/Pelvis CT 08/21/17 0000 Signed Impressions: Service Date/Time: Monday, August 21, 2017 06:57 - CONCLUSION: 1. Right middle lobe pneumonia with infiltrates right lower lobe and lingula as well. 2. Thickening of the transverse colon wall could be technical, however colitis is not excluded. Fernando Euceda MD Physical Exam HEENT: Normocephalic; atraumatic CHEST: Even/unlabored CARDIAC: RRR ABDOMEN: soft, nontender; bowel sounds active. 500 mL of loose, brown stool in rectal bag EXTREMITIES: No clubbing, cyanosis, or edema. SKIN: spider angiomas; no rash; no jaundice. REUSE TECHNICIAN: Lethargic (Carmel Deleon) Assessment and Plan Plan ASSESSMENT - Diarrhea- Reports two weeks prior to coming to hospital. Stool negative for enteric pathogens, ova and parasites, and C. Diff. CT abdomen and pelvis (08/21) --> Thickening of the transverse colon wall could be technical, however colitis is not excluded. Colonoscopy (08/22) -->Mild diverticulosis in sigmoid colon. Diffuse circumferential colitis in the ascending colon at the cecum. Mucosa was atrophic, friable and erythematous. Small sessile polyp, ranging between 3-5 mm in size, polypectomy. Pathology--> colon tubular adenoma. - Elevated LFTs, CT findings suggestive of fatty liver- LFTs have fluctuated throughout hospitalization. ETOH abuse- Serum alcohol level 285 on admission. No previous liver work up. (08/31) Pt drowsy today, opens eyes during my exam but does not respond to my questions. Rectal bag with 500 mL of watery, brown stool. Breakfast tray on table with only one bite of biscuit missing. Remains on Asacol, Creon, cholestyramine, Xifaxan, Levaquin, Flagyl Will add Lomotil PLAN - Lomotil - Asacol - Monitor stool output - Creon - Cholestyramine - Xifaxan - Flagyl - Levaquin - Alcohol withdraw protocol - Monitor LFTs - Liver HOWELL - Further recommendations based on clinical course Pt has been seen and examined by myself and Dr. Salas and this note is written on her behalf (Carmel Deleon) Physician Comments agree with above (Nay Salas MD) Carmel Deleon Aug 31, 2017 10:13 Nay Salas MD Aug 31, 2017 19:58
--- NOTE | 2017-08-31 13:25 | HHI.PR ---
Subjective Remarks Follow up sepsis. Per nursing, the patient has been confused/inappropriate today. She is oriented x 3. She reports pain in her lower abdomen when she tries to stand up. No other pain. Still with diarrhea. Objective Vitals Vital Signs Date Time Temp Pulse Resp B/P (MAP) Pulse Ox O2 Delivery O2 Flow Rate FiO2 08/31/17 10:00 99 08/31/17 08:35 96 08/31/17 08:00 98.0 70 23 150/98 (115) 96 08/31/17 08:00 97 08/31/17 07:00 96 Nasal Cannula 2.00 08/31/17 06:00 80 08/31/17 04:00 94 08/31/17 04:00 97.6 94 24 124/83 (97) 93 08/31/17 02:00 110 08/31/17 00:55 92 21 08/31/17 00:00 97.3 113 28 119/83 (95) 08/31/17 00:00 113 08/30/17 22:00 104 08/30/17 20:00 97.6 86 24 128/79 (95) 91 08/30/17 20:00 86 08/30/17 19:00 93 Nasal Cannula 2.00 21 08/30/17 18:00 98 08/30/17 16:00 88 08/30/17 16:00 98.0 88 26 128/93 (105) 90 08/30/17 14:00 93 I/O 08/30/17 08/30/17 08/30/17 08/31/17 08/31/17 08/31/17 07:00 15:00 23:00 07:00 15:00 23:00 Intake Total 100 ml 2944 ml 900 ml Output Total 3500 ml 4750 ml 5250 ml Balance -3400 ml -1806 ml -4350 ml Intake Oral 900 ml 700 ml IV Total 100 ml 2044 ml 200 ml Output Urine Total 3500 ml 4650 ml 5200 ml Stool Total 0 ml 100 ml 50 ml Result Diagram: 08/31/17 0550 08/31/17 0550 Imaging Last Impressions Chest X-Ray 08/28/17 0600 Signed Impressions: Service Date/Time: Monday, August 28, 2017 03:28 - CONCLUSION: Interval development of left lower lobe consolidation. Gonzalez Portillo MD Abdomen/Pelvis CT 08/21/17 0000 Signed Impressions: Service Date/Time: Monday, August 21, 2017 06:57 - CONCLUSION: 1. Right middle lobe pneumonia with infiltrates right lower lobe and lingula as well. 2. Thickening of the transverse colon wall could be technical, however colitis is not excluded. Fernando Euceda MD Objective Remarks General: No acute distress. Heart: Tachycardic. No murmur. Lungs: Scattered rhonchi. Breathing is nonlabored. Abdomen: Soft, nontender, nondistended. Extremities: No lower extremity edema. Psych: Alert, oriented. Answers questions appropriately. Procedures Colonoscopy 08/22 Urinary Catheter: Yes Assessment to: Continue Rose insert reason: Measure Accurate Output Vascular Central Line Catheter: No A/P Problem List: (1) Leukocytosis ICD Code: D72.829 - Elevated white blood cell count, unspecified Status: Acute (2) Diarrhea ICD Code: R19.7 - Diarrhea, unspecified Status: Acute (3) Hypokalemia ICD Code: E87.6 - Hypokalemia Status: Acute (4) Hyponatremia ICD Code: E87.1 - Hypo-osmolality and hyponatremia Status: Acute (5) Severe sepsis ICD Code: A41.9 - Sepsis, unspecified organism; R65.20 - Severe sepsis without septic shock (6) Lactic acidosis ICD Code: E87.2 - Acidosis (7) Acute diverticulitis ICD Code: K57.92 - Diverticulitis of intestine, part unspecified, without perforation or abscess without bleeding (8) Pneumonia ICD Code: J18.9 - Pneumonia, unspecified organism (9) Alcohol withdrawal ICD Code: F10.239 - Alcohol dependence with withdrawal, unspecified (10) Hypomagnesemia ICD Code: E83.42 - Hypomagnesemia Assessment and Plan 1. Severe sepsis, lactic acidosis: Secondary to acute diverticulitis, pneumonia. Patient has been on Levaquin and Flagyl 7 days. Appreciate infectious disease recommendations. Tachycardia is intermittent. BP improved. 2. Acute diverticulitis: Appreciate GI recommendations. Status post colonoscopy. Continue antibiotics. Still having diarrhea. Asacol added. 3. Pneumonia: Continue supplemental oxygen. Continue antibiotics per infectious disease recommendations. 4. Electrolyte abnormalities: Hypokalemia, hyponatremia, hypomagnesemia. Monitor labs and supplement per ICU electrolyte replacement protocol. 5. Tachycardia: Likely secondary to sepsis, alcohol withdrawal. Monitor on telemetry. 6. Alcohol withdrawal: Continue CIWA protocol. Continue Librium. Seizure precautions. 7. Hypoglycemia: Secondary to decreased oral intake. Monitor Accu-checks. 8. Anemia: Likely dilutional component in addition to bone marrow suppression secondary to alcohol abuse. H/H stable. 9. DVT prophylaxis: SCDs, Lovenox. 10. Agitation, anxiety: Appreciate Psychiatry recommendations. Discharge Planning Pending clinical improvement. Transfer to med/surg with telemetry. Problem Qualifiers (1) Leukocytosis: Qualified Codes: D72.829 - Elevated white blood cell count, unspecified (2) Diarrhea: Qualified Codes: R19.7 - Diarrhea, unspecified Cali Skaggs MD Aug 31, 2017 13:25
[2017-08-31] MEDS: ENOXAPARIN SODIUM 30 MG/0.3 ML SYRINGE SQ SCH (13:28)
[2017-08-31] MEDS ORDERED: GLUCAGON 1 MG/ML VIAL OTHER PRN (13:30)
[2017-08-31] MEDS ORDERED: DEXTROSE 50% IN WATER 50 ML VIAL(D50) IV PUSH PRN (13:30)
[2017-08-31] MEDS: HALOPERIDOL LACTATE 5 MG/ML AMP IM PRN ×2 (14:26→23:03)
[2017-08-31] MEDS: INSULIN ASPART SUPPLEMENTAL SCALE SQ SCH ×2 (15:42→21:20)
[2017-08-31] MEDS ORDERED: DIPHENOXYLATE/ATROPINE 2.5 MG/0.025 MG/5 ML CUP PO PRN (16:45)
[2017-08-31] MEDS: NS + KCL 20 MEQ INJ 1,000 ML IV SCH (17:48)
[2017-08-31 18:35] LABS: % SATURATION IRON PROFILE 15.5 % (20-50); IRON (FE) 34 MCG/DL (50-170); TOTAL IRON BINDING CAPACITY 220 MCG/DL (250-450)
[2017-08-31 18:37] LABS: FERRITIN 496 NG/ML (8-252)
--- NOTE | 2017-08-31 19:35 | HHI.IDPN ---
Note Infectious Disease Note Patient is awake. She is alert. She has flat affect. No fever. Sputum culture pending. No distress. No significant coughing. As rectal bag and watery stools. 47-year-old white female who was admitted to the hospital on 08/20/2017. She was evaluated for abnormal EKG and was sent to the hospital from [facility]. She had denied complaints when she was evaluated in the emergency department. She was afebrile. Heart rate was 110 and white count was 16.3 and a lactic acid level was elevated at 7.8. She was noted to have hypokalemia and hyponatremia. The patient was reported to be having diarrhea before admission. Chest x-ray repeated on 08/28/2017 shows development of left lower lobe consolidation. ID consult requested for pneumonia, sepsis. PAST MEDICAL HISTORY: 1. Alcoholism. 2. Positive tobacco use 3. Depression. 4. Neuropathy. ALLERGIES: NO KNOWN DRUG ALLERGIES. MEDICATIONS: Current Medications Medications (Trade) Dose Ordered Sig/Artis Route PRN Reason Start Time Stop Time Status Last Admin Dose Admin Sodium Chloride (NS Flush) 2 ml UNSCH PRN IV FLUSH FLUSH AFTER USING IV ACCESS 08/20/17 20:30 08/23/17 18:24 Sodium Chloride (NS Flush) 2 ml BID IV FLUSH 08/20/17 21:00 08/31/17 08:27 Naloxone HCl (Narcan Inj) 0.4 mg UNSCH PRN IV PUSH SEE LABEL COMMENTS 08/20/17 20:30 Flumazenil (Romazicon Inj) 0.2 mg Q1M PRN IV PUSH SEE LABEL COMMENTS 08/20/17 20:30 Lorazepam (Ativan) 1 mg Q4H PRN PO CIWA 8 - 10 08/20/17 20:30 08/31/17 08:27 Lorazepam (Ativan Inj) 1 mg Q4H PRN IV PUSH CIWA 8 - 10 08/20/17 20:30 08/31/17 02:31 Lorazepam (Ativan) 2 mg Q2H PRN PO CIWA 11-14 08/20/17 20:30 08/28/17 23:04 Lorazepam (Ativan Inj) 2 mg Q2H PRN IV PUSH CIWA 11-14 08/20/17 20:30 08/28/17 00:11 Lorazepam (Ativan Inj) 2 mg Q1H PRN IV PUSH CIWA 15-20 08/20/17 20:30 08/27/17 14:09 Lorazepam (Ativan Inj) 2 mg Q15M PRN IV PUSH CIWA > 20 08/20/17 20:30 08/24/17 05:03 Nicotine (Habitrol 21 Mg Patch.24 Hr) 1 patch DAILY T-DERMAL 08/21/17 13:00 08/31/17 08:26 Miscellaneous Information 1 DAILY T-DERMAL 08/22/17 09:00 08/31/17 08:27 Miscellaneous Information Patient in critical care unit? Ass... [id number] .XX 08/21/17 13:30 Oxycodone HCl (Roxicodone) 5 mg Q4H PRN PO pain 3-5 08/21/17 17:30 08/26/17 13:11 Oxycodone HCl (Roxicodone) 10 mg Q4H PRN PO pain 6-10 08/21/17 17:30 08/29/17 21:03 Potassium Chloride 100 ml @ 50 mls/hr Q2H PRN IV For Potassium 2.8 - 3.2 mEq/L 08/22/17 08:45 Potassium Chloride 100 ml @ 50 mls/hr Q2H PRN IV For Potassium 2.8 - 3.2 mEq/L 08/22/17 08:45 08/24/17 08:07 Potassium Bicarb/ Potassium Chloride (K-Lyte Cl Eff) 50 meq UNSCH PRN PO For Potassium 3.3 - 3.5 mEq/L 08/22/17 08:45 08/28/17 19:19 Potassium Chloride 100 ml @ 25 mls/hr UNSCH PRN IV For Potassium 3.3 - 3.5 mEq/L 08/22/17 08:45 Potassium Chloride 100 ml @ 50 mls/hr Q2H PRN IV For Potassium 3.3 - 3.5 mEq/L 08/22/17 08:45 Magnesium Sulfate 4 gm/Sodium Chloride 100 ml @ 50 mls/hr UNSCH PRN IV For Magnesium 0.9 - 1.1 mg/dL 08/22/17 08:45 Magnesium Oxide (Mag-Ox) 800 mg UNSCH PRN PO For Magnesium 1.2 - 1.6 mg/dL 08/22/17 08:45 Magnesium Sulfate 2 gm/Sodium Chloride 100 ml @ 50 mls/hr UNSCH PRN IV For Magnesium 1.2 - 1.6 mg/dL 08/22/17 08:45 08/28/17 11:41 Potassium Phosphate (K-Phos) 2,000 mg Q4H PRN PO For Phosphorus < 2.5 mg/dL 08/22/17 08:45 Sodium Phosphate 30 mmol/Sodium Chloride 250 ml @ 42 mls/hr UNSCH PRN IV For Phosphorus < 2.5 mg/dL 08/22/17 08:45 Potassium Phosphate (K-Phos) 2,000 mg UNSCH PRN PO/TUBE SEE LABEL COMMENTS 08/22/17 08:45 Potassium Phosphate 30 mmol/ Sodium Chloride 260 ml @ 42 mls/hr UNSCH PRN IV SEE LABEL COMMENTS 08/22/17 08:45 Metronidazole 100 ml @ 100 mls/hr Q8H IV 08/22/17 15:00 08/31/17 13:27 Methylprednisolone Sodium Succinate (SoluMEDROL INJ) 40 mg Q8HR IV PUSH 08/25/17 10:30 08/31/17 13:28 Albuterol/ Ipratropium (Duoneb Neb) 1 ampule Q2HR NEB PRN NEB dyspnea 08/25/17 10:30 Chlordiazepoxide (Librium) 25 mg TID PO 08/25/17 11:00 08/31/17 17:46 Enoxaparin Sodium (Lovenox Inj) 30 mg Q24H SQ 08/25/17 12:00 08/31/17 13:28 Cholestyramine Resin (Questran 4 Gm Pkt) 4 gm TID PO 08/26/17 13:00 08/31/17 17:47 Rifaximin (Xifaxan) 550 mg BID PO 08/27/17 21:00 08/31/17 08:26 Amylase/Lipase/ Protease (Creon 24-76-120) 2 cap TID PO 08/27/17 13:00 08/31/17 17:46 Thiamine HCl 100 mg/Sodium Chloride 101 ml @ 101 mls/hr DAILY IV 08/28/17 09:00 08/31/17 08:26 Acetaminophen (Tylenol) 650 mg Q4H PRN PO pain 1-2/ fever 08/27/17 11:45 Lorazepam (Ativan Inj) 0.5 mg Q4H PRN IV PUSH ANXIETY AND/OR AGITATION 08/29/17 15:45 08/29/17 17:43 Mesalamine (Asacol Hd Dr) 1,600 mg Q8HR PO 08/30/17 14:00 08/31/17 13:29 Haloperidol Lactate (Haldol Inj) 5 mg Q6H PRN IM AGITATION 08/30/17 12:45 08/31/17 14:26 Cefepime HCl 1000 mg/Sodium Chloride 100 ml @ 200 mls/hr Q8H IV 08/30/17 15:00 08/31/17 13:28 Dextrose (D50w (Vial) Inj) 50 ml UNSCH PRN IV PUSH HYPOGLYCEMIA-SEE COMMENTS 08/31/17 13:30 Glucagon (Glucagon Inj) 1 mg UNSCH PRN OTHER HYPOGLYCEMIA-SEE COMMENTS 08/31/17 13:30 Insulin Aspart (NovoLOG SUPPLEMENTAL SCALE) 1 ACHS SLIDING SCALE SQ 08/31/17 17:00 Diphenoxylate HCl/ Atropine (Lomotil 2.5-0.025 Mg Liq) 5 ml Q6H PRN PO diarrhea 08/31/17 16:45 Potassium Chloride/Sodium Chloride 1,000 ml @ 75 mls/hr [id number] IV 08/31/17 18:00 08/31/17 17:48 OBJECTIVE: Vital Signs Date Time Temp Pulse Resp B/P (MAP) Pulse Ox O2 Delivery O2 Flow Rate FiO2 08/31/17 18:00 104 08/31/17 16:00 100.3 141 20 100/72 (81) 92 08/31/17 16:00 141 08/31/17 14:00 116 08/31/17 12:00 99.1 95 29 110/80 (90) 100 08/31/17 12:00 95 08/31/17 10:00 99 08/31/17 08:35 96 08/31/17 08:00 98.0 70 23 150/98 (115) 96 08/31/17 08:00 97 08/31/17 07:00 96 Nasal Cannula 2.00 08/31/17 06:00 80 08/31/17 04:00 94 08/31/17 04:00 97.6 94 24 124/83 (97) 93 08/31/17 02:00 110 08/31/17 00:55 92 21 08/31/17 00:00 97.3 113 28 119/83 (95) 08/31/17 00:00 113 08/30/17 22:00 104 08/30/17 20:00 97.6 86 24 128/79 (95) 91 08/30/17 20:00 86 Laboratory Tests Test 08/31/17 05:50 08/31/17 16:04 08/31/17 17:10 White Blood Count 7.1 TH/MM3 Red Blood Count 2.89 MIL/MM3 Hemoglobin 10.5 GM/DL Hematocrit 30.9 % Mean Corpuscular Volume 106.9 FL Mean Corpuscular Hemoglobin 36.4 PG Mean Corpuscular Hemoglobin Concent 34.0 % Red Cell Distribution Width 15.4 % Platelet Count 307 TH/MM3 Mean Platelet Volume 7.6 FL Neutrophils (%) (Auto) 79.9 % Lymphocytes (%) (Auto) 11.1 % Monocytes (%) (Auto) 8.8 % Eosinophils (%) (Auto) 0.0 % Basophils (%) (Auto) 0.2 % Neutrophils # (Auto) 5.7 TH/MM3 Lymphocytes # (Auto) 0.8 TH/MM3 Monocytes # (Auto) 0.6 TH/MM3 Eosinophils # (Auto) 0.0 TH/MM3 Basophils # (Auto) 0.0 TH/MM3 CBC Comment AUTO DIFF Differential Total Cells Counted 100 Neutrophils % (Manual) 79 % Band Neutrophils % 4 % Lymphocytes % 9 % Monocytes % 7 % Neutrophils # (Manual) 6.0 TH/MM3 Myelocytes 1 % Differential Comment FINAL DIFF MANUAL Platelet Estimate NORMAL Platelet Morphology Comment NORMAL Polychromasia 2.3 % Ovalocytes 1+ Blood Urea Nitrogen 4 MG/DL Creatinine 0.42 MG/DL Random Glucose 92 MG/DL Total Protein 6.0 GM/DL Albumin 2.3 GM/DL Calcium Level 8.1 MG/DL Magnesium Level 1.4 MG/DL Alkaline Phosphatase 140 U/L Aspartate Amino Transf (AST/SGOT) 111 U/L Alanine Aminotransferase (ALT/SGPT) 34 U/L Total Bilirubin 0.4 MG/DL Sodium Level 138 MEQ/L Potassium Level 3.5 MEQ/L Chloride Level 105 MEQ/L Carbon Dioxide Level 24.4 MEQ/L Anion Gap 9 MEQ/L Estimat Glomerular Filtration Rate 162 ML/MIN Free Thyroxine 1.16 NG/DL Thyroid Stimulating Hormone 3rd Gen 7.080 uIU/ML Urine Osmolality 108 MOSM/KG Iron Level 34 MCG/DL Total Iron Binding Capacity 220 MCG/DL Percent Iron Saturation 15.5 % Ferritin 496 NG/ML PHYSICAL EXAMINATION: GENERAL: No acute distress. She is awake and alert and oriented. HEENT: Head is atraumatic. Extraocular movements are grossly intact. Pupils reactive to light. No icterus. The sclerae are clear. The pupils are dilated. No conjunctival erythema. Oropharynx moist mucosa. NECK: Supple without adenopathy or swelling. LUNGS: Decreased breath sounds. HEART: Regular S1 and S2 without murmurs, rubs or gallops. ABDOMEN: Bowel sounds present. Soft, nontender. EXTREMITIES: No clubbing, cyanosis or edema. SKIN: No rash. NEUROLOGIC: No gross focal findings. PSYCHIATRIC: Calm and cooperative. Affect flat. IMPRESSION: 1. Pneumonia involving the left lower lobe. The patient had prior chest x-ray that showed possible involvement of the basal aspect of the left upper lung, probably secondary to aspiration. Sputum culture pending. 2. Alcoholism. 3. Diarrhea. Negative Clostridium difficile. Patient noted to have tubular adenoma on colonoscopy. RECOMMENDATIONS: 1. Continue Cefepime for pulmonary coverage. 2. Monitor sputum culture. 3. Monitor clinical response. 4. The patient also on Flagyl and can continue given diagnoses of acute diverticulitis. I will be off 09/01 through 09/13. Other ID MDs covering. Trace Pina MD Aug 31, 2017 19:35
[2017-09-01] VITALS (8 sets, daily range): BP systolic 107–120; BP diastolic 74–86; PULSE 78–100; RESP 17–19; TEMP 97.5–98.6; O2SAT 93–96
[2017-09-01] MEDS: CEFEPIME INJ 1,000 MG in SODIUM CHLORIDE 0.9% INJ 100 ML IV SCH ×3 (05:57→22:35)
[2017-09-01] MEDS: metroNIDAZOLE 500 MG INJ 100 ML IV SCH ×3 (05:57→22:35)
[2017-09-01] MEDS: methylPREDNISolone SOD SUCC 40 MG/1 ML VIAL IV PUSH SCH ×3 (05:58→22:30)
[2017-09-01] MEDS: MESALAMINE HD 800 MG DELAYED RELEASE TAB PO SCH ×3 (05:58→22:34)
[2017-09-01] MEDS: NS + KCL 20 MEQ INJ 1,000 ML IV SCH ×2 (07:20→20:40)
[2017-09-01] MEDS: INSULIN ASPART SUPPLEMENTAL SCALE SQ SCH ×4 (08:00→20:28)
[2017-09-01] MEDS: LIPASE/PROTEASE/AMYLASE (24,000/76,000/120,000) CAP PO SCH ×3 (09:00→17:50)
[2017-09-01 10:06] LABS: BASOPHIL % 0.3 % (0.0-2.0); EOSINOPHIL % 0.1 % (0.0-4.0); HEMATOCRIT 36.1 % (35.0-46.0); LYMPHOCYTE # 0.8 TH/MM3 (1.0-4.8); MEAN CELL VOLUME 108.7 FL (80.0-100.0); MEAN CORPUSCULAR HEMOGLOBIN 36.1 PG (27.0-34.0); MEAN CORPUSCULAR HGB CONC 33.2 % (32.0-36.0); MEAN PLATELET VOLUME 7.6 FL (7.0-11.0); MONO % 8.9 % (0.0-8.0); MONOCYTE # 0.6 TH/MM3 (0-0.9); NEUT % 77.7 % (16.0-70.0); PLATELET COUNT 320 TH/MM3 (150-450); RED BLOOD COUNT 3.32 MIL/MM3 (4.00-5.30); RED CELL DISTRIBUTION WIDTH 15.7 % (11.6-17.2); WHITE BLOOD COUNT 6.5 TH/MM3 (4.0-11.0)
[2017-09-01] MEDS: chlordiazePOXIDE 25 MG CAP PO SCH ×3 (10:15→17:51)
[2017-09-01] MEDS: CHOLESTYRAMINE 4 GM PACKET PO SCH ×3 (10:15→17:51)
[2017-09-01] MEDS: THIAMINE INJ 100 MG in SODIUM CHLORIDE 0.9% INJ 100 ML IV SCH (10:15)
[2017-09-01] MEDS: SODIUM CHLORIDE 0.9% FLUSH 10 ML FLUSH IV FLUSH SCH ×2 (10:15→22:29)
[2017-09-01] MEDS: RIFAXIMIN 550 MG TAB PO SCH ×2 (10:15→22:28)
[2017-09-01] MEDS: NICOTINE 21 MG/24 HR PATCH T-DERMAL SCH (10:16)
[2017-09-01] MEDS: REMOVE OLD PATCH T-DERMAL SCH (10:16)
[2017-09-01 10:41] LABS: ALBUMIN 2.6 GM/DL (3.4-5.0); ALKALINE PHOSPHATASE 144 U/L (45-117); ALT (GPT) 42 U/L (10-53); AST (GOT) 119 U/L (15-37); BICARBONATE 24.3 MEQ/L (21.0-32.0); BLOOD UREA NITROGEN 6 MG/DL (7-18); CALCIUM 8.8 MG/DL (8.5-10.1); CHLORIDE 105 MEQ/L (98-107); CREATININE 0.48 MG/DL (0.50-1.00); GLOMERULAR FILTRATION RATE 139 ML/MIN (>89); GLUCOSE,RANDOM 87 MG/DL (74-106); SODIUM (NA) 141 MEQ/L (136-145); TOTAL BILIRUBIN ADULT 0.4 MG/DL (0.2-1.0); TOTAL PROTEIN 6.7 GM/DL (6.4-8.2)
[2017-09-01] MEDS: ENOXAPARIN SODIUM 30 MG/0.3 ML SYRINGE SQ SCH (12:57)
--- NOTE | 2017-09-01 13:21 | HHI.PR ---
Subjective Remarks Resting in bed, denied fever, reported dry cough, "I want to move my bowel "patient requested the nurse to help her out Objective Vitals Vital Signs Date Time Temp Pulse Resp B/P (MAP) Pulse Ox O2 Delivery O2 Flow Rate FiO2 09/01/17 08:00 97.5 95 18 107/79 (88) 96 09/01/17 08:00 93 09/01/17 04:40 98.3 91 17 120/76 (91) 93 09/01/17 00:15 97.6 89 18 120/86 (97) 96 09/01/17 00:00 88 09/01/17 00:00 Room Air 08/31/17 21:18 95.4 116 18 118/85 (96) 94 08/31/17 21:15 98.4 116 18 118/85 (96) 94 08/31/17 21:14 141 08/31/17 20:00 97.4 90 18 115/85 (95) 96 08/31/17 18:00 104 08/31/17 16:00 100.3 141 20 100/72 (81) 92 08/31/17 16:00 141 08/31/17 14:00 116 I/O 08/31/17 08/31/17 08/31/17 09/01/17 09/01/17 09/01/17 07:00 15:00 23:00 07:00 15:00 23:00 Intake Total 900 ml 101 ml 550 ml 440 ml Output Total 5250 ml 5000 ml 0 ml Balance -4350 ml 101 ml -4450 ml 440 ml Intake Oral 700 ml 550 ml 240 ml IV Total 200 ml 101 ml 200 ml Output Urine Total 5200 ml 4700 ml 0 ml Stool Total 50 ml 300 ml # Voids 3 # Bowel Movements 4 Result Diagram: 09/01/17 0916 09/01/17 0912 Objective Remarks GENERAL: This is a well-nourished, well-developed patient, in no apparent distress. SKIN: No rashes, warm and dry HEAD: Atraumatic. Normocephalic. EYES: PERRLA . No scleral icterus. ENT: No bleeding, or drainage, Airway patent. NECK: Trachea midline. Supple CARDIOVASCULAR: RRR, no gallops, or rubs. RESPIRATORY: Fair air entry bilaterally. No W, R, or R GASTROINTESTINAL: Abdomen soft, non-tender, nondistended. Positive bowel sounds MUSCULOSKELETAL: Extremities without clubbing, cyanosis, or edema. Pedal pulses appreciated NEUROLOGICAL: Awake and alert. Moves all extremity. Normal speech.no focal neurological deficit Procedures Colonoscopy 08/22 A/P Problem List: (1) Leukocytosis ICD Code: D72.829 - Elevated white blood cell count, unspecified Status: Acute (2) Diarrhea ICD Code: R19.7 - Diarrhea, unspecified Status: Acute (3) Hypokalemia ICD Code: E87.6 - Hypokalemia Status: Acute (4) Hyponatremia ICD Code: E87.1 - Hypo-osmolality and hyponatremia Status: Acute (5) Severe sepsis ICD Code: A41.9 - Sepsis, unspecified organism; R65.20 - Severe sepsis without septic shock (6) Lactic acidosis ICD Code: E87.2 - Acidosis (7) Acute diverticulitis ICD Code: K57.92 - Diverticulitis of intestine, part unspecified, without perforation or abscess without bleeding (8) Pneumonia ICD Code: J18.9 - Pneumonia, unspecified organism (9) Alcohol withdrawal ICD Code: F10.239 - Alcohol dependence with withdrawal, unspecified (10) Hypomagnesemia ICD Code: E83.42 - Hypomagnesemia Assessment and Plan 09/01: Doing better, continue antibiotic per ID, Repeat CBC BMP in a.m., monitor temperature, blood pressure 1. Severe sepsis, lactic acidosis: Secondary to acute diverticulitis, pneumonia. Patient has been on Levaquin and Flagyl 7 days. Appreciate infectious disease recommendations. Tachycardia is intermittent. BP improved. 2. Acute diverticulitis: Appreciate GI recommendations. Status post colonoscopy biopsy showed tubular adenoma. Continue antibiotics. Diarrhea improved. Continue Asacol, Lomotil, Creon, cholestyramine, Xifaxan, Flagyl, Levaquin 3. Pneumonia: Continue supplemental oxygen. Continue cefepime antibiotics per infectious disease recommendations. 4. Electrolyte abnormalities: Hypokalemia, hyponatremia, hypomagnesemia. Monitor labs and supplement per ICU electrolyte replacement protocol. 5. Tachycardia: Likely secondary to sepsis, alcohol withdrawal. Monitor on telemetry. 6. Alcohol withdrawal: Continue CIWA protocol. Continue Librium. Seizure precautions. 7. Hypoglycemia: Secondary to decreased oral intake. Monitor Accu-checks. 8. Anemia: Likely dilutional component in addition to bone marrow suppression secondary to alcohol abuse. H/H stable. 9. DVT prophylaxis: SCDs, Lovenox. 10. Agitation, anxiety: Appreciate Psychiatry recommendations. Problem Qualifiers (1) Leukocytosis: Qualified Codes: D72.829 - Elevated white blood cell count, unspecified (2) Diarrhea: Qualified Codes: R19.7 - Diarrhea, unspecified Rhianna Gandhi MD Sep 01, 2017 13:21
--- NOTE | 2017-09-01 17:00 | HHI.GIFU ---
Subjective Remarks Pt resting in bed Family at bedside (son, mother, brother) Pt no longer has rectal tube, per RN has had 3 soft, formed BMs today Pt with no GI complaints at this time States she has been trying to drink the Ensure but doesn't like the taste when it gets warm (Carmel Deleon) Objective Vitals I&O Vital Signs Date Time Temp Pulse Resp B/P (MAP) Pulse Ox O2 Delivery O2 Flow Rate FiO2 09/01/17 08:00 97.5 95 18 107/79 (88) 96 09/01/17 08:00 93 09/01/17 04:40 98.3 91 17 120/76 (91) 93 09/01/17 00:15 97.6 89 18 120/86 (97) 96 09/01/17 00:00 88 09/01/17 00:00 Room Air 08/31/17 21:18 95.4 116 18 118/85 (96) 94 08/31/17 21:15 98.4 116 18 118/85 (96) 94 08/31/17 21:14 141 08/31/17 20:00 97.4 90 18 115/85 (95) 96 08/31/17 18:00 104 I/O 08/31/17 08/31/17 08/31/17 09/01/17 09/01/17 09/01/17 07:00 15:00 23:00 07:00 15:00 23:00 Intake Total 900 ml 101 ml 550 ml 440 ml Output Total 5250 ml 5000 ml 0 ml Balance -4350 ml 101 ml -4450 ml 440 ml Intake Oral 700 ml 550 ml 240 ml IV Total 200 ml 101 ml 200 ml Output Urine Total 5200 ml 4700 ml 0 ml Stool Total 50 ml 300 ml # Voids 3 # Bowel Movements 4 Laboratory Laboratory Tests Test 08/31/17 17:10 09/01/17 09:12 09/01/17 09:16 Iron Level 34 Total Iron Binding Capacity 220 Percent Iron Saturation 15.5 Ferritin 496 Hepatitis A IgM Antibody NONREACTIVE Hepatitis B Surface Antigen NONREACTIVE Hepatitis B Core IgM Antibody NONREACTIVE Hepatitis C IgG Antibody NONREACTIVE Blood Urea Nitrogen 6 Creatinine 0.48 Random Glucose 87 Total Protein 6.7 Albumin 2.6 Calcium Level 8.8 Magnesium Level 2.0 Alkaline Phosphatase 144 Aspartate Amino Transf (AST/SGOT) 119 Alanine Aminotransferase (ALT/SGPT) 42 Total Bilirubin 0.4 Sodium Level 141 Potassium Level 3.4 Chloride Level 105 Carbon Dioxide Level 24.3 Anion Gap 12 Estimat Glomerular Filtration Rate 139 White Blood Count 6.5 Red Blood Count 3.32 Hemoglobin 12.0 Hematocrit 36.1 Mean Corpuscular Volume 108.7 Mean Corpuscular Hemoglobin 36.1 Mean Corpuscular Hemoglobin Concent 33.2 Red Cell Distribution Width 15.7 Platelet Count 320 Mean Platelet Volume 7.6 Neutrophils (%) (Auto) 77.7 Lymphocytes (%) (Auto) 13.0 Monocytes (%) (Auto) 8.9 Eosinophils (%) (Auto) 0.1 Basophils (%) (Auto) 0.3 Neutrophils # (Auto) 5.0 Lymphocytes # (Auto) 0.8 Monocytes # (Auto) 0.6 Eosinophils # (Auto) 0.0 Basophils # (Auto) 0.0 CBC Comment DIFF FINAL Differential Comment Date/Time Source Procedure Growth Status 08/20/17 20:00 Blood Peripheral Aerobic Blood Culture - Final NO GROWTH IN 5 DAYS Complete 08/20/17 20:00 Blood Peripheral Anaerobic Blood Culture - Final NO GROWTH IN 5 DAYS Complete 08/21/17 07:45 Stool Stool Cryptosporidium Exam - Final NEGATIVE - NO CRYPTOSPORIDIUM ANTIGEN... Complete 08/21/17 07:45 Stool Stool Giardia Antigen (CARTER) - Final NEGATIVE - NO GIARDIA ANTIGEN DETECTE... Complete 08/30/17 14:50 Sputum Expectorated Sputum Gram Stain - Final Resulted 08/30/17 14:50 Sputum Expectorated Sputum Sputum Culture - Preliminary MODERATE GROWTH NORMAL RESPIRATORY FL... Resulted Imaging Last Impressions Chest X-Ray 08/28/17 0600 Signed Impressions: Service Date/Time: Monday, August 28, 2017 03:28 - CONCLUSION: Interval development of left lower lobe consolidation. Gonzalez Portillo MD Abdomen/Pelvis CT 08/21/17 0000 Signed Impressions: Service Date/Time: Monday, August 21, 2017 06:57 - CONCLUSION: 1. Right middle lobe pneumonia with infiltrates right lower lobe and lingula as well. 2. Thickening of the transverse colon wall could be technical, however colitis is not excluded. Fernando Euceda MD Physical Exam HEENT: Normocephalic; atraumatic CHEST: Even/unlabored CARDIAC: RRR ABDOMEN: soft, nontender; bowel sounds active. EXTREMITIES: No clubbing, cyanosis, or edema. SKIN: spider angiomas; no rash; no jaundice. TEACHER'S ASSISTANT: Lethargic (Carmel Deleon) Assessment and Plan Plan ASSESSMENT - Diarrhea- Reports two weeks prior to coming to hospital. Stool negative for enteric pathogens, ova and parasites, and C. Diff. CT abdomen and pelvis (08/21) --> Thickening of the transverse colon wall could be technical, however colitis is not excluded. Colonoscopy (08/22) -->Mild diverticulosis in sigmoid colon. Diffuse circumferential colitis in the ascending colon at the cecum. Mucosa was atrophic, friable and erythematous. Small sessile polyp, ranging between 3-5 mm in size, polypectomy. Pathology--> colon tubular adenoma. - Elevated LFTs, CT findings suggestive of fatty liver- LFTs have fluctuated throughout hospitalization. ETOH abuse- Serum alcohol level 285 on admission. No previous liver work up. (08/31) Pt drowsy today, opens eyes during my exam but does not respond to my questions. Rectal bag with 500 mL of watery, brown stool. Breakfast tray on table with only one bite of biscuit missing. Remains on Asacol, Creon, cholestyramine, Xifaxan, Levaquin, Flagyl Will add Lomotil (09/02) Pt transferred to medical floor. No longer has flexiseal. Per RN pt has had 2 soft, but formed BMs today. Pt with no GI complaints at this time. States she is trying to drink the Ensure but does not like the taste when they get warm. Liver function about the same today. Liver HOWELL pending. PLAN - Lomotil - Asacol - Monitor stool count - Creon - Cholestyramine - Xifaxan - Flagyl - Levaquin - Alcohol withdraw protocol - Monitor LFTs - Liver HWOELL - Further recommendations based on clinical course Pt has been seen and examined by myself and Dr. Salas and this note is written on her behalf (Carmel Deleon) Carmel Deleon Sep 01, 2017 17:00 Nay Salas MD Sep 01, 2017 18:43
[2017-09-02] VITALS (8 sets, daily range): BP systolic 113–139; BP diastolic 81–92; PULSE 52–125; RESP 18; TEMP 97.4–98; O2SAT 91–98
[2017-09-02] MEDS: metroNIDAZOLE 500 MG INJ 100 ML IV SCH ×3 (05:36→22:49)
[2017-09-02] MEDS: methylPREDNISolone SOD SUCC 40 MG/1 ML VIAL IV PUSH SCH (05:38)
[2017-09-02] MEDS: MESALAMINE HD 800 MG DELAYED RELEASE TAB PO SCH ×3 (05:38→21:38)
[2017-09-02] MEDS: CEFEPIME INJ 1,000 MG in SODIUM CHLORIDE 0.9% INJ 100 ML IV SCH ×3 (07:00→22:48)
[2017-09-02] MEDS: INSULIN ASPART SUPPLEMENTAL SCALE SQ SCH ×4 (08:00→21:00)
[2017-09-02] MEDS: LIPASE/PROTEASE/AMYLASE (24,000/76,000/120,000) CAP PO SCH ×3 (10:22→17:52)
[2017-09-02] MEDS: THIAMINE INJ 100 MG in SODIUM CHLORIDE 0.9% INJ 100 ML IV SCH (10:22)
[2017-09-02] MEDS: RIFAXIMIN 550 MG TAB PO SCH ×2 (10:22→21:38)
[2017-09-02] MEDS: REMOVE OLD PATCH T-DERMAL SCH (10:23)
[2017-09-02] MEDS: NICOTINE 21 MG/24 HR PATCH T-DERMAL SCH (10:23)
[2017-09-02] MEDS: NS + KCL 20 MEQ INJ 1,000 ML IV SCH ×2 (10:24→22:49)
[2017-09-02] MEDS: chlordiazePOXIDE 25 MG CAP PO SCH ×3 (10:24→17:52)
[2017-09-02] MEDS: CHOLESTYRAMINE 4 GM PACKET PO SCH ×3 (10:24→17:52)
[2017-09-02] MEDS: SODIUM CHLORIDE 0.9% FLUSH 10 ML FLUSH IV FLUSH SCH ×2 (10:24→21:00)
--- NOTE | 2017-09-02 13:04 | HHI.PR ---
Subjective Remarks Patient resting comfortably in bed Afebrile no acute event overnight Objective Vitals Vital Signs Date Time Temp Pulse Resp B/P (MAP) Pulse Ox O2 Delivery O2 Flow Rate FiO2 09/02/17 08:40 98 21 09/02/17 08:00 52 09/02/17 08:00 97.4 93 18 130/92 (105) 93 09/02/17 04:00 97.6 68 18 139/87 (104) 93 09/02/17 03:41 68 09/02/17 00:00 Room Air 09/02/17 00:00 97.5 78 18 123/89 (100) 92 09/01/17 20:00 Room Air 09/01/17 20:00 97.9 87 19 108/83 (91) 94 09/01/17 19:43 78 09/01/17 16:00 Room Air 09/01/17 16:00 98.6 100 18 113/83 (93) 93 09/01/17 16:00 97 I/O 09/01/17 09/01/17 09/01/17 09/02/17 09/02/17 09/02/17 07:00 15:00 23:00 07:00 15:00 23:00 Intake Total 440 ml 480 ml 680 ml Output Total 0 ml Balance 440 ml 480 ml 680 ml Intake Oral 240 ml 480 ml 680 ml IV Total 200 ml Output Urine Total 0 ml # Voids 3 1 6 # Bowel Movements 4 2 2 Result Diagram: 09/01/17 0916 09/01/17 0912 Objective Remarks GENERAL: This is a well-nourished, well-developed patient, in no apparent distress. SKIN: No rashes, warm and dry HEAD: Atraumatic. Normocephalic. EYES: PERRLA . No scleral icterus. ENT: No bleeding, or drainage, Airway patent. NECK: Trachea midline. Supple CARDIOVASCULAR: RRR, no gallops, or rubs. RESPIRATORY: Fair air entry bilaterally. No W, R, or R GASTROINTESTINAL: Abdomen soft, non-tender, nondistended. Positive bowel sounds MUSCULOSKELETAL: Extremities without clubbing, cyanosis, or edema. Pedal pulses appreciated NEUROLOGICAL: Awake and alert. Moves all extremity. Normal speech.no focal neurological deficit Procedures Colonoscopy 08/22 A/P Problem List: (1) Leukocytosis ICD Code: D72.829 - Elevated white blood cell count, unspecified Status: Acute (2) Diarrhea ICD Code: R19.7 - Diarrhea, unspecified Status: Acute (3) Hypokalemia ICD Code: E87.6 - Hypokalemia Status: Acute (4) Hyponatremia ICD Code: E87.1 - Hypo-osmolality and hyponatremia Status: Acute (5) Severe sepsis ICD Code: A41.9 - Sepsis, unspecified organism; R65.20 - Severe sepsis without septic shock (6) Lactic acidosis ICD Code: E87.2 - Acidosis (7) Acute diverticulitis ICD Code: K57.92 - Diverticulitis of intestine, part unspecified, without perforation or abscess without bleeding (8) Pneumonia ICD Code: J18.9 - Pneumonia, unspecified organism (9) Alcohol withdrawal ICD Code: F10.239 - Alcohol dependence with withdrawal, unspecified (10) Hypomagnesemia ICD Code: E83.42 - Hypomagnesemia Assessment and Plan 09/01: Doing better, continue antibiotic per ID, Repeat CBC BMP in a.m., monitor temperature, blood pressure 09/02,: Taper Solu Medrol, continue cefepime per ID, diarrhea improved more firm stool, colon biopsy showed tubular adenoma,, start ambulating PT OT ordered 1. Severe sepsis, lactic acidosis: Secondary to acute diverticulitis, pneumonia. Patient has been on Levaquin and Flagyl 7 days. Appreciate infectious disease recommendations. Tachycardia is intermittent. BP improved. 2. Acute diverticulitis: Appreciate GI recommendations. Status post colonoscopy biopsy showed tubular adenoma. Continue antibiotics. Diarrhea improved. Continue Asacol, Lomotil, Creon, cholestyramine, Xifaxan, Flagyl, Levaquin 3. Pneumonia: Continue supplemental oxygen. Continue cefepime antibiotics per infectious disease recommendations. 4. Electrolyte abnormalities: Hypokalemia, hyponatremia, hypomagnesemia. Monitor labs and supplement per ICU electrolyte replacement protocol. 5. Tachycardia: Likely secondary to sepsis, alcohol withdrawal. Monitor on telemetry. 6. Alcohol withdrawal: Continue CIWA protocol. Continue Librium. Seizure precautions. 7. Hypoglycemia: Secondary to decreased oral intake. Monitor Accu-checks. 8. Anemia: Likely dilutional component in addition to bone marrow suppression secondary to alcohol abuse. H/H stable. 9. DVT prophylaxis: SCDs, Lovenox. 10. Agitation, anxiety: Appreciate Psychiatry recommendations. Problem Qualifiers (1) Leukocytosis: Qualified Codes: D72.829 - Elevated white blood cell count, unspecified (2) Diarrhea: Qualified Codes: R19.7 - Diarrhea, unspecified Rhianna Gandhi MD Sep 02, 2017 13:04
[2017-09-02] MEDS: ENOXAPARIN SODIUM 30 MG/0.3 ML SYRINGE SQ SCH (13:14)
--- NOTE | 2017-09-02 17:22 | HHI.GIFU ---
Subjective Remarks Pt reports stools are becoming more formed- states thinks she has had 4 BMs today Denies abdominal pain, nausea, vomiting Has been able to drink more of the Ensure drinks now that it is on ice Objective Vitals I&O Vital Signs Date Time Temp Pulse Resp B/P (MAP) Pulse Ox O2 Delivery O2 Flow Rate FiO2 09/02/17 08:40 98 21 09/02/17 08:00 52 09/02/17 08:00 97.4 93 18 130/92 (105) 93 09/02/17 04:00 97.6 68 18 139/87 (104) 93 09/02/17 03:41 68 09/02/17 00:00 Room Air 09/02/17 00:00 97.5 78 18 123/89 (100) 92 09/01/17 20:00 Room Air 09/01/17 20:00 97.9 87 19 108/83 (91) 94 09/01/17 19:43 78 I/O 09/01/17 09/01/17 09/01/17 09/02/17 09/02/17 09/02/17 07:00 15:00 23:00 07:00 15:00 23:00 Intake Total 440 ml 480 ml 680 ml Output Total 0 ml Balance 440 ml 480 ml 680 ml Intake Oral 240 ml 480 ml 680 ml IV Total 200 ml Output Urine Total 0 ml # Voids 3 1 6 # Bowel Movements 4 2 2 Laboratory Date/Time Source Procedure Growth Status 08/20/17 20:00 Blood Peripheral Aerobic Blood Culture - Final NO GROWTH IN 5 DAYS Complete 08/20/17 20:00 Blood Peripheral Anaerobic Blood Culture - Final NO GROWTH IN 5 DAYS Complete 08/21/17 07:45 Stool Stool Cryptosporidium Exam - Final NEGATIVE - NO CRYPTOSPORIDIUM ANTIGEN... Complete 08/21/17 07:45 Stool Stool Giardia Antigen (CARTER) - Final NEGATIVE - NO GIARDIA ANTIGEN DETECTE... Complete 08/30/17 14:50 Sputum Expectorated Sputum Gram Stain - Final Complete 08/30/17 14:50 Sputum Expectorated Sputum Sputum Culture - Final MODERATE GROWTH NORMAL RESPIRATORY GALEN Complete Imaging Last Impressions Chest X-Ray 08/28/17 0600 Signed Impressions: Service Date/Time: Monday, August 28, 2017 03:28 - CONCLUSION: Interval development of left lower lobe consolidation. Gonzalez Portillo MD Abdomen/Pelvis CT 08/21/17 0000 Signed Impressions: Service Date/Time: Monday, August 21, 2017 06:57 - CONCLUSION: 1. Right middle lobe pneumonia with infiltrates right lower lobe and lingula as well. 2. Thickening of the transverse colon wall could be technical, however colitis is not excluded. Fernando Euceda MD Physical Exam HEENT: Normocephalic; atraumatic CHEST: Even/unlabored CARDIAC: RRR ABDOMEN: soft, nontender; bowel sounds active. EXTREMITIES: No clubbing, cyanosis, or edema. SKIN: spider angiomas; no rash; no jaundice. COMMERCIAL INTELLIGENCE MANAGER: Lethargic Assessment and Plan Plan ASSESSMENT - Diarrhea- Reports two weeks prior to coming to hospital. Stool negative for enteric pathogens, ova and parasites, and C. Diff. CT abdomen and pelvis (08/21) --> Thickening of the transverse colon wall could be technical, however colitis is not excluded. Colonoscopy (08/22) -->Mild diverticulosis in sigmoid colon. Diffuse circumferential colitis in the ascending colon at the cecum. Mucosa was atrophic, friable and erythematous. Small sessile polyp, ranging between 3-5 mm in size, polypectomy. Pathology--> colon tubular adenoma. - Elevated LFTs, CT findings suggestive of fatty liver- LFTs have fluctuated throughout hospitalization. ETOH abuse- Serum alcohol level 285 on admission. No previous liver work up. (08/31) Pt drowsy today, opens eyes during my exam but does not respond to my questions. Rectal bag with 500 mL of watery, brown stool. Breakfast tray on table with only one bite of biscuit missing. Remains on Asacol, Creon, cholestyramine, Xifaxan, Levaquin, Flagyl Will add Lomotil (09/02) Pt transferred to medical floor. No longer has flexiseal. Per RN pt has had 2 soft, but formed BMs today. Pt with no GI complaints at this time. States she is trying to drink the Ensure but does not like the taste when they get warm. Liver function about the same today. Liver HOWELL pending. (09/03) Pt states stool is becoming more formed, thinks she has had 4-5 BMs today. No repeat LFTs from today but has been pretty steady. Liver HOWELL still pending. PLAN - Liver HOWELL pending - Lomotil - Asacol - Monitor stool count - Creon - Cholestyramine - Xifaxan - Flagyl - Levaquin - Alcohol withdraw protocol - Diarrhea seems to be improving, GI will sign off, pt can follow up in office regarding liver HOWELL - Reconsult as needed Pt has been seen and examined by myself and Dr. Salas and this note is written on her behalf Carmel Deleon Sep 02, 2017 17:22
[2017-09-02] MEDS: LORazepam 2 MG/ML VIAL IV PUSH PRN (22:48)
[2017-09-03] VITALS (9 sets, daily range): BP systolic 110–123; BP diastolic 67–86; PULSE 80–123; RESP 17–20; TEMP 97.5–100.6; O2SAT 90–98
[2017-09-03] MEDS: MESALAMINE HD 800 MG DELAYED RELEASE TAB PO SCH ×3 (06:00→22:34)
[2017-09-03] MEDS: metroNIDAZOLE 500 MG INJ 100 ML IV SCH (06:23)
[2017-09-03] MEDS: INSULIN ASPART SUPPLEMENTAL SCALE SQ SCH ×4 (08:00→21:00)
--- NOTE | 2017-09-03 08:46 | RADRPT ---
EXAM DATE/TIME: 09/03/2017 08:32 [facility] COMPARISON: No previous studies available for comparison. INDICATIONS : Right wrist pain, denies trauma MEDICAL HISTORY : hypokalemia SURGICAL HISTORY : None. ENCOUNTER: Subsequent ACUITY: 2 days PAIN SCORE: Non-responsive. LOCATION: Right wrist FINDINGS: Three view examination of the right wrist demonstrates no soft tissue swelling, dislocation, or fract ure. The carpal bones are in normal alignment. The joint spaces are maintained. Bony mineralizatio n is normal. CONCLUSION: Unremarkable examination of the right wrist. Santi Ryan MD on September 03, 2017 at 8:43 Board Certified Radiologist. This report was verified electronically.
[2017-09-03] MEDS: CEFEPIME INJ 1,000 MG in SODIUM CHLORIDE 0.9% INJ 100 ML IV SCH (08:54)
[2017-09-03] MEDS: NICOTINE 21 MG/24 HR PATCH T-DERMAL SCH (08:59)
[2017-09-03] MEDS: LIPASE/PROTEASE/AMYLASE (24,000/76,000/120,000) CAP PO SCH ×3 (08:59→17:34)
[2017-09-03] MEDS: RIFAXIMIN 550 MG TAB PO SCH ×2 (08:59→22:32)
[2017-09-03] MEDS: chlordiazePOXIDE 25 MG CAP PO SCH ×3 (08:59→17:34)
[2017-09-03] MEDS: CHOLESTYRAMINE 4 GM PACKET PO SCH ×3 (08:59→17:34)
[2017-09-03] MEDS: REMOVE OLD PATCH T-DERMAL SCH (09:00)
[2017-09-03] MEDS: methylPREDNISolone SOD SUCC 40 MG/1 ML VIAL IV PUSH SCH (09:00)
[2017-09-03] MEDS: SODIUM CHLORIDE 0.9% FLUSH 10 ML FLUSH IV FLUSH SCH ×2 (09:00→22:36)
[2017-09-03] MEDS: LORazepam 2 MG/ML VIAL IV PUSH PRN ×2 (09:00→22:50)
[2017-09-03] MEDS: THIAMINE INJ 100 MG in SODIUM CHLORIDE 0.9% INJ 100 ML IV SCH (10:21)
--- NOTE | 2017-09-03 10:40 | HHI.IDPN ---
Subjective Subjective Remarks 47-year-old white female who was admitted to the hospital on 08/20/2017. She was evaluated for abnormal EKG and was sent to the hospital from [facility]. She had denied complaints when she was evaluated in the emergency department. She was afebrile. Heart rate was 110 and white count was 16.3 and a lactic acid level was elevated at 7.8. She was noted to have hypokalemia and hyponatremia. The patient was reported to be having diarrhea before admission. Chest x-ray repeated on 08/28/2017 shows development of left lower lobe consolidation. ID consult requested for pneumonia, sepsis. Notes reviewed Tmax 100.6 Tachycardiac, HR 123 Last WBC WNL 09/01 Patient states she feels well, denies any fever, chills, sweats, cough, dyspnea , N/V, dysuria stools are more formed She is tolerating diet on RA Antibiotics Cefepime Flagyl Lines PIV with no evidence of infection Past Medical History 1. Alcoholism. 2. Positive tobacco use 3. Depression. 4. Neuropathy. (Honey Perdue) Allergies: Coded Allergies: No Known Allergies (Verified Allergy, Unknown, 08/20/17) Objective . Vital Signs Date Time Temp Pulse Resp B/P (MAP) Pulse Ox O2 Delivery O2 Flow Rate FiO2 09/03/17 07:25 98.5 123 20 112/78 (89) 95 09/03/17 04:00 100.6 118 20 123/67 (85) 91 09/03/17 04:00 116 09/03/17 04:00 Room Air 09/03/17 00:02 98.0 113 18 110/75 (87) 90 09/03/17 00:00 Room Air 09/02/17 20:00 Room Air 09/02/17 20:00 125 09/02/17 20:00 97.8 112 18 113/81 (92) 91 09/02/17 16:00 86 09/02/17 16:00 98.0 99 18 130/86 (101) 93 09/02/17 12:00 82 09/02/17 12:00 97.8 99 18 121/81 (94) 97 . Laboratory Tests Test 08/31/17 16:04 08/31/17 17:10 09/01/17 09:12 3/24/18 09:16 Urine Osmolality 108 MOSM/KG Iron Level 34 MCG/DL Total Iron Binding Capacity 220 MCG/DL Percent Iron Saturation 15.5 % Ferritin 496 NG/ML Anti-Nuclear Antibody Screen NEG Hepatitis A IgM Antibody NONREACTIVE Hepatitis B Surface Antigen NONREACTIVE Hepatitis B Core IgM Antibody NONREACTIVE Hepatitis C IgG Antibody NONREACTIVE Blood Urea Nitrogen 6 MG/DL Creatinine 0.48 MG/DL Random Glucose 87 MG/DL Total Protein 6.7 GM/DL Albumin 2.6 GM/DL Calcium Level 8.8 MG/DL Magnesium Level 2.0 MG/DL Alkaline Phosphatase 144 U/L Aspartate Amino Transf (AST/SGOT) 119 U/L Alanine Aminotransferase (ALT/SGPT) 42 U/L Total Bilirubin 0.4 MG/DL Sodium Level 141 MEQ/L Potassium Level 3.4 MEQ/L Chloride Level 105 MEQ/L Carbon Dioxide Level 24.3 MEQ/L Anion Gap 12 MEQ/L Estimat Glomerular Filtration Rate 139 ML/MIN White Blood Count 6.5 TH/MM3 Red Blood Count 3.32 MIL/MM3 Hemoglobin 12.0 GM/DL Hematocrit 36.1 % Mean Corpuscular Volume 108.7 FL Mean Corpuscular Hemoglobin 36.1 PG Mean Corpuscular Hemoglobin Concent 33.2 % Red Cell Distribution Width 15.7 % Platelet Count 320 TH/MM3 Mean Platelet Volume 7.6 FL Neutrophils (%) (Auto) 77.7 % Lymphocytes (%) (Auto) 13.0 % Monocytes (%) (Auto) 8.9 % Eosinophils (%) (Auto) 0.1 % Basophils (%) (Auto) 0.3 % Neutrophils # (Auto) 5.0 TH/MM3 Lymphocytes # (Auto) 0.8 TH/MM3 Monocytes # (Auto) 0.6 TH/MM3 Eosinophils # (Auto) 0.0 TH/MM3 Basophils # (Auto) 0.0 TH/MM3 CBC Comment DIFF FINAL Differential Comment Test 09/03/17 12:48 White Blood Count 8.6 TH/MM3 Red Blood Count 3.32 MIL/MM3 Hemoglobin 11.8 GM/DL Hematocrit 35.0 % Mean Corpuscular Volume 105.3 FL Mean Corpuscular Hemoglobin 35.5 PG Mean Corpuscular Hemoglobin Concent 33.7 % Red Cell Distribution Width 15.4 % Platelet Count 333 TH/MM3 Mean Platelet Volume 7.7 FL Neutrophils (%) (Auto) 88.6 % Lymphocytes (%) (Auto) 6.6 % Monocytes (%) (Auto) 4.4 % Eosinophils (%) (Auto) 0.1 % Basophils (%) (Auto) 0.3 % Neutrophils # (Auto) 7.6 TH/MM3 Lymphocytes # (Auto) 0.6 TH/MM3 Monocytes # (Auto) 0.4 TH/MM3 Eosinophils # (Auto) 0.0 TH/MM3 Basophils # (Auto) 0.0 TH/MM3 CBC Comment DIFF FINAL Differential Comment Blood Urea Nitrogen 5 MG/DL Creatinine 0.39 MG/DL Random Glucose 103 MG/DL Total Protein 6.5 GM/DL Albumin 2.7 GM/DL Calcium Level 8.5 MG/DL Alkaline Phosphatase 122 U/L Aspartate Amino Transf (AST/SGOT) 93 U/L Alanine Aminotransferase (ALT/SGPT) 48 U/L Total Bilirubin 0.4 MG/DL Sodium Level 138 MEQ/L Potassium Level 3.9 MEQ/L Chloride Level 107 MEQ/L Carbon Dioxide Level 21.9 MEQ/L Anion Gap 9 MEQ/L Estimat Glomerular Filtration Rate 176 ML/MIN Lactic Acid Level 1.0 mmol/L Microbiology Date/Time Source Procedure Growth Status 08/20/17 20:00 Blood Peripheral Aerobic Blood Culture - Final NO GROWTH IN 5 DAYS Complete 08/20/17 20:00 Blood Peripheral Anaerobic Blood Culture - Final NO GROWTH IN 5 DAYS Complete 08/21/17 07:45 Stool Stool Cryptosporidium Exam - Final NEGATIVE - NO CRYPTOSPORIDIUM ANTIGEN... Complete 08/21/17 07:45 Stool Stool Giardia Antigen (CARTER) - Final NEGATIVE - NO GIARDIA ANTIGEN DETECTE... Complete 08/30/17 14:50 Sputum Expectorated Sputum Gram Stain - Final Complete 08/30/17 14:50 Sputum Expectorated Sputum Sputum Culture - Final MODERATE GROWTH NORMAL RESPIRATORY GALEN Complete Imaging Last Impressions Chest X-Ray 08/28/17 0600 Signed Impressions: Service Date/Time: Monday, August 28, 2017 03:28 - CONCLUSION: Interval development of left lower lobe consolidation. Gonzalez Portillo MD Abdomen/Pelvis CT 08/21/17 0000 Signed Impressions: Service Date/Time: Monday, August 21, 2017 06:57 - CONCLUSION: 1. Right middle lobe pneumonia with infiltrates right lower lobe and lingula as well. 2. Thickening of the transverse colon wall could be technical, however colitis is not excluded. Fernando Euceda MD Physical Exam GENERAL: Somewhat chronically ill appearing female patient in NAD. Awake and alert. at bedside. SKIN: Warm and dry. No rash. HEAD: Normocephalic. Atraumatic. EYES: EOMI No scleral icterus. (+)Mild conjunctival hemorrhage left eye ENT: No nasal bleeding or discharge. Mucous membranes pink and moist. No exudate. No oral thrush. NECK: Trachea midline. CARDIOVASCULAR: Tachycardic. S1, S2 noted. No murmur appreciated. RESPIRATORY: Nonlabored. Clear to auscultation. Breath sounds equal bilaterally. GASTROINTESTINAL: Abdomen soft, non-tender, nondistended. Normoactive bowel sounds x4. MUSCULOSKELETAL: No obvious deformities. Extremities without clubbing, cyanosis , or edema. NEUROLOGICAL: Awake and alert. No obvious cranial nerve deficits. Motor grossly within normal limits. Normal speech. PSYCHIATRIC: Flat affect; Pleasant and cooperative. (Honey Perdue) Assessment & Plan Remarks IMPRESSION: 1. Pneumonia involving the left lower lobe. The patient had prior chest x-ray that showed possible involvement of the basal aspect of the left upper lung, probably secondary to aspiration. Sputum culture shows growth of normal respiratory failure. -Tmax 100.6. Repeat CBC today shows no leukocytosis. Chest x-ray ordered and reveals interval improvement of left lung infiltrate. Patient satting 94% on room air. 2. Alcoholism. 3. Diarrhea. Negative Clostridium difficile. Patient noted to have tubular adenoma and diffuse circumferential colitis on colonoscopy. RECOMMENDATIONS: 1. Discontinue IV Cefepime and Flagyl. Change to Augmentin 500mg q8h x 5 days , stop date in the system. 2. Monitor clinical response. Patient may be discharged from ID standpoint. Will sign off for now. Please reconsult if needed. (Honey Perdue) Remarks The exam, history, and the medical decision-making described in the above note were completed with the assistance of the mid-level provider. I reviewed the historical facts with patient again, along with pertinent ROS and performed an independent physical examination. I agree with the findings presented. I attest that I had a [id number] encounter with the patient on the same day, and personally performed and documented my assessment/plan and findings in the medical record. Sitting in bed. ? still confused at times. PT OT eval needed to assess safety. Discontinue IV Cefepime and Flagyl. Change to Augmentin 500mg q8h x 5 days, stop date in the system. Patient may be discharged from ID standpoint. Will sign off for now. Please reconsult if needed. (Margarita Briones MD) Honey Perdue Sep 03, 2017 10:40 Margarita Briones MD Sep 03, 2017 21:35
--- NOTE | 2017-09-03 11:08 | RADRPT ---
EXAM DATE/TIME: 09/03/2017 10:51 [facility] COMPARISON: CHEST SINGLE AP, August 28, 2017, 3:28. INDICATIONS : Fever. Followup left lower lobe consolidation seen on prior chest x-ray. MEDICAL HISTORY : Hypokalemia. SURGICAL HISTORY : None. ENCOUNTER: Subsequent ACUITY: 1 week PAIN SCORE: 0/10 LOCATION: Bilateral chest FINDINGS: A single AP view of the chest was obtained and demonstrates an interval decrease in the left perihila r and left lower lobe infiltrate with mild to moderate residual. The left costophrenic angle is parti ally cut off the exam. The heart size remains at the upper limits of normal. The right lung is clear. The bony thorax remains intact. CONCLUSION: Interval improvement in left lung infiltrate with mild to moderate residual. Will Flynn MD on September 03, 2017 at 11:04 Board Certified Radiologist. This report was verified electronically.
[2017-09-03] MEDS: NS + KCL 20 MEQ INJ 1,000 ML IV SCH (12:40)
[2017-09-03] MEDS: ENOXAPARIN SODIUM 30 MG/0.3 ML SYRINGE SQ SCH (12:47)
[2017-09-03 13:11] LABS: AUTOMATED NEUTROPHIL # 7.6 TH/MM3 (1.8-7.7); BASOPHIL % 0.3 % (0.0-2.0); EOSINOPHIL % 0.1 % (0.0-4.0); HEMOGLOBIN 11.8 GM/DL (11.6-15.3); LYMPH % 6.6 % (9.0-44.0); LYMPHOCYTE # 0.6 TH/MM3 (1.0-4.8); MEAN CELL VOLUME 105.3 FL (80.0-100.0); MEAN CORPUSCULAR HEMOGLOBIN 35.5 PG (27.0-34.0); MEAN CORPUSCULAR HGB CONC 33.7 % (32.0-36.0); MEAN PLATELET VOLUME 7.7 FL (7.0-11.0); MONO % 4.4 % (0.0-8.0); MONOCYTE # 0.4 TH/MM3 (0-0.9); NEUT % 88.6 % (16.0-70.0); PLATELET COUNT 333 TH/MM3 (150-450); RED BLOOD COUNT 3.32 MIL/MM3 (4.00-5.30); RED CELL DISTRIBUTION WIDTH 15.4 % (11.6-17.2); WHITE BLOOD COUNT 8.6 TH/MM3 (4.0-11.0)
[2017-09-03 13:22] LABS: ALBUMIN 2.7 GM/DL (3.4-5.0); ALT (GPT) 48 U/L (10-53); AST (GOT) 93 U/L (15-37); BICARBONATE 21.9 MEQ/L (21.0-32.0); BLOOD UREA NITROGEN 5 MG/DL (7-18); CALCIUM 8.5 MG/DL (8.5-10.1); CHLORIDE 107 MEQ/L (98-107); CREATININE 0.39 MG/DL (0.50-1.00); GLOMERULAR FILTRATION RATE 176 ML/MIN (>89); GLUCOSE,RANDOM 103 MG/DL (74-106); SODIUM (NA) 138 MEQ/L (136-145)
[2017-09-03 13:25] LABS: ALKALINE PHOSPHATASE 122 U/L (45-117); TOTAL BILIRUBIN ADULT 0.4 MG/DL (0.2-1.0); TOTAL PROTEIN 6.5 GM/DL (6.4-8.2)
--- NOTE | 2017-09-03 14:02 | HHI.PR ---
Subjective Remarks Patient complaint of weakness, I was told by the nurse the patient was found on the floor with her hands underneath her, did not hit her head Patient is on cefepime, GI signed off, will continue following Afebrile, significant other was at bedside Objective Vitals Vital Signs Date Time Temp Pulse Resp B/P (MAP) Pulse Ox O2 Delivery O2 Flow Rate FiO2 09/03/17 12:01 97.8 98 17 111/77 (88) 94 09/03/17 08:00 Room Air 09/03/17 07:25 98.5 123 20 112/78 (89) 95 09/03/17 04:00 100.6 118 20 123/67 (85) 91 09/03/17 04:00 116 09/03/17 04:00 Room Air 09/03/17 00:02 98.0 113 18 110/75 (87) 90 09/03/17 00:00 Room Air 09/02/17 20:00 Room Air 09/02/17 20:00 125 09/02/17 20:00 97.8 112 18 113/81 (92) 91 09/02/17 16:00 86 09/02/17 16:00 98.0 99 18 130/86 (101) 93 I/O 09/02/17 09/02/17 09/02/17 09/03/17 09/03/17 09/03/17 07:00 15:00 23:00 07:00 15:00 23:00 Intake Total 680 ml 1960 ml 200 ml Balance 680 ml 1960 ml 200 ml Intake Oral 680 ml 960 ml IV Total 1000 ml 200 ml # Voids 6 2 3 # Bowel Movements 2 2 1 Result Diagram: 09/03/17 1248 09/03/17 1248 Objective Remarks GENERAL: This is a well-nourished, well-developed patient, in no apparent distress. SKIN: No rashes, warm and dry HEAD: Atraumatic. Normocephalic. EYES: PERRLA . No scleral icterus. ENT: No bleeding, or drainage, Airway patent. NECK: Trachea midline. Supple CARDIOVASCULAR: RRR, no gallops, or rubs. RESPIRATORY: Fair air entry bilaterally. No W, R, or R GASTROINTESTINAL: Abdomen soft, non-tender, nondistended. Positive bowel sounds MUSCULOSKELETAL: Extremities without clubbing, cyanosis, or edema. Pedal pulses appreciated NEUROLOGICAL: Awake and alert. Moves all extremity. Normal speech.no focal neurological deficit Procedures Colonoscopy 08/22 A/P Problem List: (1) Leukocytosis ICD Code: D72.829 - Elevated white blood cell count, unspecified Status: Acute (2) Diarrhea ICD Code: R19.7 - Diarrhea, unspecified Status: Acute (3) Hypokalemia ICD Code: E87.6 - Hypokalemia Status: Acute (4) Hyponatremia ICD Code: E87.1 - Hypo-osmolality and hyponatremia Status: Acute (5) Severe sepsis ICD Code: A41.9 - Sepsis, unspecified organism; R65.20 - Severe sepsis without septic shock (6) Lactic acidosis ICD Code: E87.2 - Acidosis (7) Acute diverticulitis ICD Code: K57.92 - Diverticulitis of intestine, part unspecified, without perforation or abscess without bleeding (8) Pneumonia ICD Code: J18.9 - Pneumonia, unspecified organism (9) Alcohol withdrawal ICD Code: F10.239 - Alcohol dependence with withdrawal, unspecified (10) Hypomagnesemia ICD Code: E83.42 - Hypomagnesemia Assessment and Plan 09/01: Doing better, continue antibiotic per ID, Repeat CBC BMP in a.m., monitor temperature, blood pressure 09/02,: Taper Solu Medrol, continue cefepime per ID, diarrhea improved more firm stool, colon biopsy showed tubular adenoma,, start ambulating PT OT ordered 09/03: Continue tapering Solu-Medrol, history of falling down today , will do wrist x-ray rule out any fracture, she is on cefepime per ID, will follow recommendation 1. Severe sepsis, lactic acidosis: Secondary to acute diverticulitis, pneumonia. Patient has been on Levaquin and Flagyl 7 days. Appreciate infectious disease recommendations. Tachycardia is intermittent. BP improved. 2. Acute diverticulitis: Appreciate GI recommendations. Status post colonoscopy biopsy showed tubular adenoma. Continue antibiotics. Diarrhea improved. Continue Asacol, Lomotil, Creon, cholestyramine, Xifaxan, Flagyl, Levaquin 3. Pneumonia: Continue supplemental oxygen. Continue cefepime antibiotics per infectious disease recommendations. 4. Electrolyte abnormalities: Hypokalemia, hyponatremia, hypomagnesemia. Monitor labs and supplement per ICU electrolyte replacement protocol. 5. Tachycardia: Likely secondary to sepsis, alcohol withdrawal. Monitor on telemetry. 6. Alcohol withdrawal: Continue CIWA protocol. Continue Librium. Seizure precautions. 7. Hypoglycemia: Secondary to decreased oral intake. Monitor Accu-checks. 8. Anemia: Likely dilutional component in addition to bone marrow suppression secondary to alcohol abuse. H/H stable. 9. DVT prophylaxis: SCDs, Lovenox. 10. Agitation, anxiety: Appreciate Psychiatry recommendations. Problem Qualifiers (1) Leukocytosis: Qualified Codes: D72.829 - Elevated white blood cell count, unspecified (2) Diarrhea: Qualified Codes: R19.7 - Diarrhea, unspecified Rhianna Gandhi MD Sep 03, 2017 14:02
[2017-09-03] MEDS: AMOXICILLIN/CLAVULANATE K 500 MG TAB PO SCH ×2 (14:15→22:33)
--- NOTE | 2017-09-03 14:29 | HHI.GIFU ---
Subjective Remarks Patient sitting up in bed, more awake and more responsive Able to eat solid food without nausea and vomiting Notes 4-5 stools today, semi-loose Temp 100.6 at 4 AM on 09/03/17 (Rozina Peña) Objective Vitals I&O Vital Signs Date Time Temp Pulse Resp B/P (MAP) Pulse Ox O2 Delivery O2 Flow Rate FiO2 09/03/17 12:01 97.8 98 17 111/77 (88) 94 09/03/17 08:00 Room Air 09/03/17 07:25 98.5 123 20 112/78 (89) 95 09/03/17 04:00 100.6 118 20 123/67 (85) 91 09/03/17 04:00 116 09/03/17 04:00 Room Air 09/03/17 00:02 98.0 113 18 110/75 (87) 90 09/03/17 00:00 Room Air 09/02/17 20:00 Room Air 09/02/17 20:00 125 09/02/17 20:00 97.8 112 18 113/81 (92) 91 09/02/17 16:00 86 09/02/17 16:00 98.0 99 18 130/86 (101) 93 I/O 09/02/17 09/02/17 09/02/17 09/03/17 09/03/17 09/03/17 07:00 15:00 23:00 07:00 15:00 23:00 Intake Total 680 ml 1960 ml 200 ml Balance 680 ml 1960 ml 200 ml Intake Oral 680 ml 960 ml IV Total 1000 ml 200 ml # Voids 6 2 3 # Bowel Movements 2 2 1 Laboratory Laboratory Tests Test 09/03/17 12:48 White Blood Count 8.6 Red Blood Count 3.32 Hemoglobin 11.8 Hematocrit 35.0 Mean Corpuscular Volume 105.3 Mean Corpuscular Hemoglobin 35.5 Mean Corpuscular Hemoglobin Concent 33.7 Red Cell Distribution Width 15.4 Platelet Count 333 Mean Platelet Volume 7.7 Neutrophils (%) (Auto) 88.6 Lymphocytes (%) (Auto) 6.6 Monocytes (%) (Auto) 4.4 Eosinophils (%) (Auto) 0.1 Basophils (%) (Auto) 0.3 Neutrophils # (Auto) 7.6 Lymphocytes # (Auto) 0.6 Monocytes # (Auto) 0.4 Eosinophils # (Auto) 0.0 Basophils # (Auto) 0.0 CBC Comment DIFF FINAL Differential Comment Blood Urea Nitrogen 5 Creatinine 0.39 Random Glucose 103 Total Protein 6.5 Albumin 2.7 Calcium Level 8.5 Alkaline Phosphatase 122 Aspartate Amino Transf (AST/SGOT) 93 Alanine Aminotransferase (ALT/SGPT) 48 Total Bilirubin 0.4 Sodium Level 138 Potassium Level 3.9 Chloride Level 107 Carbon Dioxide Level 21.9 Anion Gap 9 Estimat Glomerular Filtration Rate 176 Lactic Acid Level 1.0 Date/Time Source Procedure Growth Status 08/20/17 20:00 Blood Peripheral Aerobic Blood Culture - Final NO GROWTH IN 5 DAYS Complete 08/20/17 20:00 Blood Peripheral Anaerobic Blood Culture - Final NO GROWTH IN 5 DAYS Complete 08/21/17 07:45 Stool Stool Cryptosporidium Exam - Final NEGATIVE - NO CRYPTOSPORIDIUM ANTIGEN... Complete 08/21/17 07:45 Stool Stool Giardia Antigen (CARTER) - Final NEGATIVE - NO GIARDIA ANTIGEN DETECTE... Complete 08/30/17 14:50 Sputum Expectorated Sputum Gram Stain - Final Complete 08/30/17 14:50 Sputum Expectorated Sputum Sputum Culture - Final MODERATE GROWTH NORMAL RESPIRATORY GALEN Complete Imaging Last Impressions Chest X-Ray 08/28/17 0600 Signed Impressions: Service Date/Time: Monday, August 28, 2017 03:28 - CONCLUSION: Interval development of left lower lobe consolidation. Gonzalez Portillo MD Abdomen/Pelvis CT 08/21/17 0000 Signed Impressions: Service Date/Time: Monday, August 21, 2017 06:57 - CONCLUSION: 1. Right middle lobe pneumonia with infiltrates right lower lobe and lingula as well. 2. Thickening of the transverse colon wall could be technical, however colitis is not excluded. Fernando Eucead MD Physical Exam HEENT: Normocephalic; atraumatic CHEST: Even/unlabored no obvious shortness of breath or wheezing CARDIAC: RRR ABDOMEN: Flat, soft, nontender; bowel sounds active. No nausea vomiting, appetite returning EXTREMITIES: No clubbing, cyanosis, or edema. SKIN: spider angiomas; no rash; no jaundice. MATERIAL EXPEDITER: Awake, answers questions appropriately, more alert (Rozina Peña) Assessment and Plan Plan ASSESSMENT - Diarrhea- Reports two weeks prior to coming to hospital. Stool negative for enteric pathogens, ova and parasites, and C. Diff. CT abdomen and pelvis (08/21) --> Thickening of the transverse colon wall could be technical, however colitis is not excluded. Colonoscopy (08/22) -->Mild diverticulosis in sigmoid colon. Diffuse circumferential colitis in the ascending colon at the cecum. Mucosa was atrophic, friable and erythematous. Small sessile polyp, ranging between 3-5 mm in size, polypectomy. Pathology--> colon tubular adenoma. - Elevated LFTs, CT findings suggestive of fatty liver- LFTs have fluctuated throughout hospitalization. ETOH abuse- Serum alcohol level 285 on admission. No previous liver work up. (08/31) Pt drowsy today, opens eyes during my exam but does not respond to my questions. Rectal bag with 500 mL of watery, brown stool. Breakfast tray on table with only one bite of biscuit missing. Remains on Asacol, Creon, cholestyramine, Xifaxan, Levaquin, Flagyl Will add Lomotil (09/02) Pt transferred to medical floor. No longer has flexiseal. Per RN pt has had 2 soft, but formed BMs today. Pt with no GI complaints at this time. States she is trying to drink the Ensure but does not like the taste when they get warm. Liver function about the same today. Liver HOWELL pending. (09/03) Pt states stool is becoming more formed, thinks she has had 4-5 BMs today. No repeat LFTs from today but has been pretty steady. Liver HOWELL still pending. Patient has been able to eat solid food, no further nausea or vomiting PLAN - Liver HOWELL pending - Lomotil - Asacol - Monitor stool count - Creon - Cholestyramine - Xifaxan - Flagyl - Levaquin - Alcohol withdraw protocol - Diarrhea seems to be improving, GI will sign off, pt can follow up in office regarding liver HOWELL - Reconsult as needed Pt has been seen and examined by myself and Dr. Lew and this note is written on his behalf (Rozina Peña) Physician Comments Patient seen and examined Agree with above Continue with current supportive care Monitor lab Follow-up with GI post discharge We will sign off (Vipin,GeovaniRozina Brumfield Sep 03, 2017 14:28 Geovani Lew MD Sep 03, 2017 23:15
[2017-09-03 16:16] LABS: BILIRUBIN, URINE NEG (NEG); BLOOD, URINE NEG (NEG); GLUCOSE,URINE NEG (NEG); KETONE, URINE NEG (NEG); NITRITE,URINE NEG (NEG); PH, URINE 6.5 (5.0-8.5); SQUAMOUS EPITHELIAL CELL URINE 1 /hpf (0-5); URINE COLOR LIGHT-YELLOW (YELLW/STRAW); URINE LEUKOCYTE ESTERASE NEG (NEG)
[2017-09-04] VITALS (10 sets, daily range): BP systolic 103–115; BP diastolic 67–83; PULSE 78–102; RESP 16–18; TEMP 97.2–98.4; O2SAT 91–99
[2017-09-04] MEDS: NS + KCL 20 MEQ INJ 1,000 ML IV SCH ×2 (05:24→15:20)
[2017-09-04] MEDS: MESALAMINE HD 800 MG DELAYED RELEASE TAB PO SCH ×3 (05:24→20:57)
[2017-09-04] MEDS: AMOXICILLIN/CLAVULANATE K 500 MG TAB PO SCH ×3 (05:24→20:57)
[2017-09-04] MEDS: INSULIN ASPART SUPPLEMENTAL SCALE SQ SCH ×4 (08:00→21:00)
[2017-09-04] MEDS: THIAMINE INJ 100 MG in SODIUM CHLORIDE 0.9% INJ 100 ML IV SCH (08:56)
[2017-09-04] MEDS: REMOVE OLD PATCH T-DERMAL SCH (08:58)
[2017-09-04] MEDS: RIFAXIMIN 550 MG TAB PO SCH ×2 (08:58→20:57)
[2017-09-04] MEDS: chlordiazePOXIDE 25 MG CAP PO SCH ×3 (08:58→17:32)
[2017-09-04] MEDS: LIPASE/PROTEASE/AMYLASE (24,000/76,000/120,000) CAP PO SCH ×3 (08:58→17:32)
[2017-09-04] MEDS: methylPREDNISolone SOD SUCC 40 MG/1 ML VIAL IV PUSH SCH (08:58)
[2017-09-04] MEDS: NICOTINE 21 MG/24 HR PATCH T-DERMAL SCH (08:58)
[2017-09-04] MEDS: CHOLESTYRAMINE 4 GM PACKET PO SCH ×3 (08:58→17:32)
[2017-09-04] MEDS: LORazepam 2 MG/ML VIAL IV PUSH PRN (08:59)
[2017-09-04] MEDS: SODIUM CHLORIDE 0.9% FLUSH 10 ML FLUSH IV FLUSH SCH ×2 (09:13→20:58)
[2017-09-04] MEDS ORDERED: CHOL4POW4 PO (10:43)
[2017-09-04] MEDS ORDERED: OXYC-392 PO (10:43)
[2017-09-04] MEDS ORDERED: Amoxicil-Clavulanate PO (10:43)
[2017-09-04] MEDS ORDERED: CREON24 PO (10:43)
[2017-09-04] MEDS ORDERED: MESA1TAB2 PO (10:43)
[2017-09-04] MEDS ORDERED: CHLO25CA9 PO (10:43)
[2017-09-04] MEDS ORDERED: XIFA550T4 PO (10:43)
[2017-09-04] MEDS: ENOXAPARIN SODIUM 30 MG/0.3 ML SYRINGE SQ SCH (13:08)
[2017-09-04 14:04] LABS: SMOOTH MUSCLE TOTAL AUTOABS Negative (Negative)
[2017-09-04 14:52] LABS: ALPHA-1-ANTITRYPSIN 267 mg/dL (100 - 190)
--- NOTE | 2017-09-04 19:03 | HHI.PR ---
Subjective Remarks Patient is doing her PT assessment I discussed with PT and OT, patient still not safe for discharge at this point other than to a rehab, Discussed with geriatric case manager patient is not eligible for sniff per insurance Objective Vitals Vital Signs Date Time Temp Pulse Resp B/P (MAP) Pulse Ox O2 Delivery O2 Flow Rate FiO2 09/04/17 16:00 97 09/04/17 12:00 97 09/04/17 08:32 94 21 09/04/17 08:00 78 09/04/17 08:00 Room Air 09/04/17 08:00 98.0 82 18 104/73 (83) 94 09/04/17 04:00 97.3 90 17 104/72 (83) 98 09/04/17 03:51 86 09/04/17 00:02 92 09/04/17 00:00 97.7 92 17 103/67 (79) 93 09/03/17 20:00 97.5 80 18 120/86 (97) 98 09/03/17 20:00 Room Air 09/03/17 19:44 81 I/O 09/03/17 09/03/17 09/03/17 09/04/17 09/04/17 09/04/17 07:00 15:00 23:00 07:00 15:00 23:00 Intake Total 200 ml 600 ml 240 ml Output Total 400 ml 350 ml Balance 200 ml 200 ml -110 ml Intake Oral 600 ml 240 ml IV Total 200 ml Output Urine Total 400 ml 350 ml # Voids 3 # Bowel Movements 1 3 3 Result Diagram: 09/03/17 1248 09/03/17 1248 Objective Remarks GENERAL: This is a well-nourished, well-developed patient, in no apparent distress. SKIN: No rashes, warm and dry HEAD: Atraumatic. Normocephalic. EYES: PERRLA . No scleral icterus. ENT: No bleeding, or drainage, Airway patent. NECK: Trachea midline. Supple CARDIOVASCULAR: RRR, no gallops, or rubs. RESPIRATORY: Fair air entry bilaterally. No W, R, or R GASTROINTESTINAL: Abdomen soft, non-tender, nondistended. Positive bowel sounds MUSCULOSKELETAL: Extremities without clubbing, cyanosis, or edema. Pedal pulses appreciated NEUROLOGICAL: Awake and alert. Moves all extremity. Normal speech.no focal neurological deficit Procedures Colonoscopy 08/22 A/P Problem List: (1) Leukocytosis ICD Code: D72.829 - Elevated white blood cell count, unspecified Status: Acute (2) Diarrhea ICD Code: R19.7 - Diarrhea, unspecified Status: Acute (3) Hypokalemia ICD Code: E87.6 - Hypokalemia Status: Acute (4) Hyponatremia ICD Code: E87.1 - Hypo-osmolality and hyponatremia Status: Acute (5) Severe sepsis ICD Code: A41.9 - Sepsis, unspecified organism; R65.20 - Severe sepsis without septic shock (6) Lactic acidosis ICD Code: E87.2 - Acidosis (7) Acute diverticulitis ICD Code: K57.92 - Diverticulitis of intestine, part unspecified, without perforation or abscess without bleeding (8) Pneumonia ICD Code: J18.9 - Pneumonia, unspecified organism (9) Alcohol withdrawal ICD Code: F10.239 - Alcohol dependence with withdrawal, unspecified (10) Hypomagnesemia ICD Code: E83.42 - Hypomagnesemia Assessment and Plan 09/01: Doing better, continue antibiotic per ID, Repeat CBC BMP in a.m., monitor temperature, blood pressure 09/02,: Taper Solu Medrol, continue cefepime per ID, diarrhea improved more firm stool, colon biopsy showed tubular adenoma,, start ambulating PT OT ordered 09/03: Continue tapering Solu-Medrol, history of falling down today , will do wrist x-ray rule out any fracture, she is on cefepime per ID, will follow recommendation 09/04: Continue cefepime per ID, patient on dextrose with potassium IV fluid, will repeat BMP in a.m. to monitor her electrolytes, monitor clinic, still not safe per occupational therapist for discharge other than to a sniff which is not available at this point per discussion with geriatric case manager 1. Severe sepsis, lactic acidosis: Secondary to acute diverticulitis, pneumonia. Patient has been on Levaquin and Flagyl 7 days. Appreciate infectious disease recommendations. Tachycardia is intermittent. BP improved. 2. Acute diverticulitis: Appreciate GI recommendations. Status post colonoscopy biopsy showed tubular adenoma. Continue antibiotics. Diarrhea improved. Continue Asacol, Lomotil, Creon, cholestyramine, Xifaxan, Flagyl, Levaquin 3. Pneumonia: Continue supplemental oxygen. Continue cefepime antibiotics per infectious disease recommendations. 4. Electrolyte abnormalities: Hypokalemia, hyponatremia, hypomagnesemia. Monitor labs and supplement per ICU electrolyte replacement protocol. 5. Tachycardia: Likely secondary to sepsis, alcohol withdrawal. Monitor on telemetry. 6. Alcohol withdrawal: Continue CIWA protocol. Continue Librium. Seizure precautions. 7. Hypoglycemia: Secondary to decreased oral intake. Monitor Accu-checks. 8. Anemia: Likely dilutional component in addition to bone marrow suppression secondary to alcohol abuse. H/H stable. 9. DVT prophylaxis: SCDs, Lovenox. 10. Agitation, anxiety: Appreciate Psychiatry recommendations. Problem Qualifiers (1) Leukocytosis: Qualified Codes: D72.829 - Elevated white blood cell count, unspecified (2) Diarrhea: Qualified Codes: R19.7 - Diarrhea, unspecified Rhianna Gandhi MD Sep 04, 2017 19:03
[2017-09-05] VITALS (9 sets, daily range): BP systolic 96–110; BP diastolic 64–89; PULSE 75–138; RESP 16–20; TEMP 97.5–98.9; O2SAT 92–99
[2017-09-05] MEDS: LORazepam 2 MG/ML VIAL IV PUSH PRN ×4 (01:49→23:18)
[2017-09-05] MEDS: NS + KCL 20 MEQ INJ 1,000 ML IV SCH ×2 (04:40→17:12)
[2017-09-05] MEDS: MESALAMINE HD 800 MG DELAYED RELEASE TAB PO SCH ×3 (05:21→23:11)
[2017-09-05] MEDS: AMOXICILLIN/CLAVULANATE K 500 MG TAB PO SCH ×3 (05:21→23:17)
[2017-09-05] MEDS: INSULIN ASPART SUPPLEMENTAL SCALE SQ SCH ×4 (08:00→21:00)
[2017-09-05] MEDS: RIFAXIMIN 550 MG TAB PO SCH ×2 (09:46→23:11)
[2017-09-05] MEDS: LIPASE/PROTEASE/AMYLASE (24,000/76,000/120,000) CAP PO SCH ×3 (09:46→17:11)
[2017-09-05] MEDS: predniSONE 20 MG TAB PO SCH (09:47)
[2017-09-05] MEDS: chlordiazePOXIDE 25 MG CAP PO SCH ×3 (09:47→17:11)
[2017-09-05] MEDS: SODIUM CHLORIDE 0.9% FLUSH 10 ML FLUSH IV FLUSH SCH ×2 (09:47→23:13)
[2017-09-05] MEDS: THIAMINE INJ 100 MG in SODIUM CHLORIDE 0.9% INJ 100 ML IV SCH (09:47)
[2017-09-05] MEDS: CHOLESTYRAMINE 4 GM PACKET PO SCH ×3 (09:47→17:11)
[2017-09-05] MEDS: NICOTINE 21 MG/24 HR PATCH T-DERMAL SCH (09:48)
[2017-09-05] MEDS: REMOVE OLD PATCH T-DERMAL SCH (09:49)
[2017-09-05 10:16] LABS: BICARBONATE 16.9 MEQ/L (21.0-32.0); CALCIUM 8.9 MG/DL (8.5-10.1); CREATININE 0.4 MG/DL (0.50-1.00); MAGNESIUM 1.8 MG/DL (1.5-2.5); PHOSPHORUS 3.1 MG/DL (2.5-4.9)
[2017-09-05] MEDS: ENOXAPARIN SODIUM 30 MG/0.3 ML SYRINGE SQ SCH (13:08)
--- NOTE | 2017-09-05 14:40 | HHI.PR ---
Subjective Remarks Patient walking in the hallway with walker by the PT OT seems to be very fragile Discussed with PT OT She is getting tachycardic up to 140-150, I gave her a dose of Cardizem 10 mg brought her heart rate down and blood pressure improved Objective Vitals Vital Signs Date Time Temp Pulse Resp B/P (MAP) Pulse Ox O2 Delivery O2 Flow Rate FiO2 09/05/17 12:00 98.0 129 19 98/70 (79) 98 09/05/17 08:00 97.5 83 20 104/71 (82) 98 09/05/17 04:00 98.6 90 16 110/74 (86) 92 09/05/17 04:00 85 09/05/17 00:00 103 09/04/17 23:52 98.4 85 16 114/78 (90) 91 09/04/17 20:00 97.7 91 17 115/83 (94) 99 09/04/17 20:00 102 09/04/17 16:00 97 09/04/17 16:00 97.5 91 18 104/78 (87) 98 I/O 09/04/17 09/04/17 09/04/17 09/05/17 09/05/17 09/05/17 07:00 15:00 23:00 07:00 15:00 23:00 Intake Total 240 ml 600 ml 300 ml 240 ml Output Total 350 ml 450 ml Balance -110 ml 600 ml -150 ml 240 ml Intake Oral 240 ml 600 ml 300 ml 240 ml Output Urine Total 350 ml 450 ml # Voids 3 2 # Bowel Movements 3 2 0 Result Diagram: 09/03/17 1248 09/05/17 0920 Objective Remarks GENERAL: This is a frail 47 years old female in no acute distress. SKIN: No rashes, warm and dry HEAD: Atraumatic. Normocephalic. EYES: PERRLA . No scleral icterus. ENT: No bleeding, or drainage, Airway patent. NECK: Trachea midline. Supple CARDIOVASCULAR: Regular tacky, no gallops, or rubs. RESPIRATORY: Fair air entry bilaterally. No W, R, or R GASTROINTESTINAL: Abdomen soft, non-tender, nondistended. Positive bowel sounds MUSCULOSKELETAL: Extremities without clubbing, cyanosis, or edema. Pedal pulses appreciated NEUROLOGICAL: Awake and alert. Moves all extremity. Normal speech.no focal neurological deficit Procedures Colonoscopy 08/22 A/P Problem List: (1) Leukocytosis ICD Code: D72.829 - Elevated white blood cell count, unspecified Status: Acute (2) Diarrhea ICD Code: R19.7 - Diarrhea, unspecified Status: Acute (3) Hypokalemia ICD Code: E87.6 - Hypokalemia Status: Acute (4) Hyponatremia ICD Code: E87.1 - Hypo-osmolality and hyponatremia Status: Acute (5) Severe sepsis ICD Code: A41.9 - Sepsis, unspecified organism; R65.20 - Severe sepsis without septic shock (6) Lactic acidosis ICD Code: E87.2 - Acidosis (7) Acute diverticulitis ICD Code: K57.92 - Diverticulitis of intestine, part unspecified, without perforation or abscess without bleeding (8) Pneumonia ICD Code: J18.9 - Pneumonia, unspecified organism (9) Alcohol withdrawal ICD Code: F10.239 - Alcohol dependence with withdrawal, unspecified (10) Hypomagnesemia ICD Code: E83.42 - Hypomagnesemia Assessment and Plan 1. Severe sepsis, lactic acidosis: Secondary to acute diverticulitis, pneumonia. Patient has been on Levaquin and Flagyl 7 days. Appreciate infectious disease recommendations. Tachycardia is intermittent. BP improved. 2. Acute diverticulitis: Appreciate GI recommendations. Status post colonoscopy biopsy showed tubular adenoma. Continue antibiotics. Diarrhea improved. Continue Asacol, Lomotil, Creon, cholestyramine, Xifaxan, Flagyl, Levaquin 3. Pneumonia: Continue supplemental oxygen. Continue cefepime antibiotics per infectious disease recommendations. 4. Electrolyte abnormalities: Hypokalemia, hyponatremia, hypomagnesemia. Monitor labs and supplement per ICU electrolyte replacement protocol. 5. Tachycardia: Not improving suspect alcohol withdrawal improved with a dose of Cardizem on 09/05, started Lopressor 25 mg 3 times daily with holding parameter, thiamine folic acid and CIWA protocol 6. Alcohol withdrawal: Continue CIWA protocol. Continue Librium. Seizure precautions. 7. Hypoglycemia: Secondary to decreased oral intake. Monitor Accu-checks. 8. Anemia: Likely dilutional component in addition to bone marrow suppression secondary to alcohol abuse. H/H stable. 9. DVT prophylaxis: SCDs, Lovenox. 10. Agitation, anxiety: Appreciate Psychiatry recommendations. 3/28: Continue tapering steroid, 1 dose of Cardizem today for sinus tachycardia , I placed patient on metoprolol 25 mg 3 times daily, monitor heart rate and blood pressure and titrate dose Discharge Planning Lengthy discussion with the patient, outpatient case manager, charge nurse Patient is not qualified for sniff, patient had been falling down while in the hospital, occupational therapy evaluation showing poor performance of the patient still not safe for discharge at this point continue effort to improve occupational status Problem Qualifiers (1) Leukocytosis: Qualified Codes: D72.829 - Elevated white blood cell count, unspecified (2) Diarrhea: Qualified Codes: R19.7 - Diarrhea, unspecified Rhianna Gandhi MD Sep 05, 2017 14:40
[2017-09-05] MEDS ORDERED: DILTIAZEM HCL 50 MG/10 ML VIAL IV ONE (15:00)
[2017-09-05] MEDS: METOPROLOL TARTRATE 25 MG TAB PO SCH (23:11)
[2017-09-06] VITALS (8 sets, daily range): BP systolic 92–131; BP diastolic 63–90; PULSE 71–98; RESP 16–18; TEMP 97–98.2; O2SAT 95–100
[2017-09-06] MEDS: NS + KCL 20 MEQ INJ 1,000 ML IV SCH (06:17)
[2017-09-06] MEDS: METOPROLOL TARTRATE 25 MG TAB PO SCH ×3 (06:19→22:37)
[2017-09-06] MEDS: AMOXICILLIN/CLAVULANATE K 500 MG TAB PO SCH ×3 (06:19→22:37)
[2017-09-06] MEDS: MESALAMINE HD 800 MG DELAYED RELEASE TAB PO SCH ×3 (06:19→22:37)
[2017-09-06] MEDS: INSULIN ASPART SUPPLEMENTAL SCALE SQ SCH ×2 (08:00→12:00)
[2017-09-06] MEDS: THIAMINE INJ 100 MG in SODIUM CHLORIDE 0.9% INJ 100 ML IV SCH (08:41)
[2017-09-06] MEDS: RIFAXIMIN 550 MG TAB PO SCH ×2 (08:41→22:37)
[2017-09-06] MEDS: LIPASE/PROTEASE/AMYLASE (24,000/76,000/120,000) CAP PO SCH ×3 (08:41→16:52)
[2017-09-06] MEDS: chlordiazePOXIDE 25 MG CAP PO SCH ×3 (08:41→22:37)
[2017-09-06] MEDS: CHOLESTYRAMINE 4 GM PACKET PO SCH ×3 (08:41→16:52)
[2017-09-06] MEDS: predniSONE 20 MG TAB PO SCH (08:41)
[2017-09-06] MEDS: SODIUM CHLORIDE 0.9% FLUSH 10 ML FLUSH IV FLUSH SCH ×2 (08:42→22:38)
[2017-09-06] MEDS: REMOVE OLD PATCH T-DERMAL SCH (08:42)
[2017-09-06] MEDS: NICOTINE 21 MG/24 HR PATCH T-DERMAL SCH (08:42)
--- NOTE | 2017-09-06 12:34 | EKG ---
Date Performed: 09/05/2017 Time Performed: 16:48:29 PTAGE: 47 years EKG: Sinus rhythm NORMAL ECG PREVIOUS TRACING : 08/29/2017 17.07 Since the previous tracing, no significant change noted DOCTOR: Viet Carreon Interpretating Date/Time 09/06/2017 12:33:18
[2017-09-06] MEDS: ENOXAPARIN SODIUM 30 MG/0.3 ML SYRINGE SQ SCH (12:53)
--- NOTE | 2017-09-06 13:22 | HHI.PR ---
Subjective Remarks telemetry- in sinus rhythm up on side of chair looking forward to more physical therapy very moitvated with alcohol cessation denies any diarrhea no cough up and walking with walker around the hallway Objective Vitals Vital Signs Date Time Temp Pulse Resp B/P (MAP) Pulse Ox O2 Delivery O2 Flow Rate FiO2 09/06/17 12:00 89 09/06/17 12:00 97.6 95 16 92/63 (73) 99 09/06/17 10:06 Room Air 09/06/17 08:00 74 09/06/17 08:00 97.8 83 18 99/69 (79) 96 09/06/17 04:00 98.1 87 18 103/68 (80) 98 09/06/17 00:00 97.7 75 18 125/76 (92) 97 09/05/17 20:00 98.1 89 18 110/89 (96) 99 09/05/17 20:00 Room Air 09/05/17 16:02 96 09/05/17 16:00 Room Air 09/05/17 16:00 98.9 104 20 96/64 (75) 99 I/O 09/05/17 09/05/17 09/05/17 09/06/17 09/06/17 09/06/17 07:00 15:00 23:00 07:00 15:00 23:00 Intake Total 300 ml 240 ml 840 ml 220 ml Output Total 450 ml Balance -150 ml 240 ml 840 ml 220 ml Intake Oral 300 ml 240 ml 840 ml 220 ml Output Urine Total 450 ml # Voids 2 3 4 # Bowel Movements 0 1 1 Result Diagram: 09/03/17 1248 09/05/17 0920 Imaging Last Impressions Wrist X-Ray 09/03/17 0000 Signed Impressions: Service Date/Time: Sunday, September 03, 2017 08:32 - CONCLUSION: Unremarkable examination of the right wrist. Santi Ryan MD Chest X-Ray 09/03/17 0000 Signed Impressions: Service Date/Time: Sunday, September 03, 2017 10:51 - CONCLUSION: Interval improvement in left lung infiltrate with mild to moderate residual. Will Flynn MD Abdomen/Pelvis CT 08/21/17 0000 Signed Impressions: Service Date/Time: Monday, August 21, 2017 06:57 - CONCLUSION: 1. Right middle lobe pneumonia with infiltrates right lower lobe and lingula as well. 2. Thickening of the transverse colon wall could be technical, however colitis is not excluded. Fernando Euceda MD Objective Remarks anicteric no JVD no rales, no wheezes irregular hythm abdomensoft, nontender extremities no edema, neuro exam- non focal Procedures Colonoscopy 08/22 A/P Problem List: (1) Leukocytosis ICD Code: D72.829 - Elevated white blood cell count, unspecified Status: Acute (2) Diarrhea ICD Code: R19.7 - Diarrhea, unspecified Status: Acute (3) Hypokalemia ICD Code: E87.6 - Hypokalemia Status: Acute (4) Hyponatremia ICD Code: E87.1 - Hypo-osmolality and hyponatremia Status: Acute (5) Severe sepsis ICD Code: A41.9 - Sepsis, unspecified organism; R65.20 - Severe sepsis without septic shock (6) Lactic acidosis ICD Code: E87.2 - Acidosis (7) Acute diverticulitis ICD Code: K57.92 - Diverticulitis of intestine, part unspecified, without perforation or abscess without bleeding (8) Pneumonia ICD Code: J18.9 - Pneumonia, unspecified organism (9) Alcohol withdrawal ICD Code: F10.239 - Alcohol dependence with withdrawal, unspecified (10) Hypomagnesemia ICD Code: E83.42 - Hypomagnesemia Assessment and Plan 47 years old female 1. Severe sepsis, lactic acidosis: Secondary to acute diverticulitis/ PNA - S/P Levaquin and Flagyl Appreciate infectious disease recommendations.HR. BP improved. continue on Augmentin till 09/08 2. Acute diverticulitis: Appreciate GI recommendations. Status post colonoscopy biopsy showed tubular adenoma. Continue antibiotics. Diarrhea improved. Continue Asacol, Lomotil, Creon, cholestyramine, Xifaxan S/P Flagyl, Levaquin 3. Pneumonia: Continue supplemental oxygen. po aumgentin till 09/08. decrease prednisone to 20 mg daily 4. Electrolyte abnormalities: Hypokalemia, hyponatremia, hypomagnesemia. resolved 5. Tachycardia- IMproved likely secodnary to DTs . Decrease 25 po bid with holding parameter, thiamine folic acid and CIWA protocol 6. Alcohol withdrawal: Continue CIWA protocol. Continue Librium. Seizure precautions.- Taper Librium 7. Hypoglycemia: Secondary to decreased oral intake. Monitor Accu-checks. Improved 8. Anemia: Likely dilutional component in addition to bone marrow suppression secondary to alcohol abuse. H/H stable. 9. DVT prophylaxis: SCDs, Lovenox. 10. Agitation, anxiety: Appreciate Psychiatry recommendations. 11. Deconditioning from ETOH- PT/OT daily Discharge Planning Lengthy discussion with the patient, caser in, charge nurse Patient is not qualified for sniff, patient had been falling down while in the hospital, occupational therapy evaluation showing poor performance of the patient still not safe for discharge at this point continue effort to improve occupational status PT daily- CM consult for OP Problem Qualifiers (1) Leukocytosis: Qualified Codes: D72.829 - Elevated white blood cell count, unspecified (2) Diarrhea: Qualified Codes: R19.7 - Diarrhea, unspecified Salinas Christine MD Sep 06, 2017 13:22
--- NOTE | 2017-09-06 14:41 | HHI.FF ---
Face to Face Verification Home Health Nursing Order: Medical education Signs/symptoms of disease process Nursing assessment with vital signs I have seen patient Yulia Luis on 09/06/17. My clinical findings support the need for the requested home health care services because: Need for psychosocial assistance I certify that my clinical findings support that this patient is homebound because: Salinas Christine MD Sep 06, 2017 14:41
[2017-09-06] MEDS ORDERED: WALKER WHEELS/F1 MIS (14:44)
[2017-09-06 23:53] LABS: MITOCHONDRIAL ABS LESS THAN 20.0 U (<=20.0)
[2017-09-07 04:00] VITALS: PULSE 71
[2017-09-07 05:02] VITALS: BP 130/93; PULSE 67; RESP 16; TEMP 97.4; O2SAT 99
[2017-09-07] MEDS: MESALAMINE HD 800 MG DELAYED RELEASE TAB PO SCH ×2 (05:40→12:33)
[2017-09-07] MEDS: AMOXICILLIN/CLAVULANATE K 500 MG TAB PO SCH ×2 (05:40→12:34)
[2017-09-07 08:00] VITALS: BP 99/73; PULSE 103; PULSE 81; RESP 16; TEMP 97.2; O2SAT 96
[2017-09-07] MEDS: CHOLESTYRAMINE 4 GM PACKET PO SCH ×2 (08:55→12:33)
[2017-09-07] MEDS: METOPROLOL TARTRATE 25 MG TAB PO SCH (08:55)
[2017-09-07] MEDS: RIFAXIMIN 550 MG TAB PO SCH (08:55)
[2017-09-07] MEDS: chlordiazePOXIDE 25 MG CAP PO SCH (08:56)
[2017-09-07] MEDS: SODIUM CHLORIDE 0.9% FLUSH 10 ML FLUSH IV FLUSH SCH (08:56)
[2017-09-07] MEDS: LIPASE/PROTEASE/AMYLASE (24,000/76,000/120,000) CAP PO SCH ×2 (08:56→12:33)
[2017-09-07] MEDS: REMOVE OLD PATCH T-DERMAL SCH (08:56)
[2017-09-07] MEDS: NICOTINE 21 MG/24 HR PATCH T-DERMAL SCH (08:57)
[2017-09-07] MEDS ORDERED: predniSONE 20 MG TAB PO SCH (09:00)
[2017-09-07] MEDS ORDERED: THIAMINE HCL 100 MG TAB PO SCH (09:00)
--- NOTE | 2017-09-07 10:36 | HHI.PR ---
Subjective Remarks no complains doing well very motivated good po Objective Vitals Vital Signs Date Time Temp Pulse Resp B/P (MAP) Pulse Ox O2 Delivery O2 Flow Rate FiO2 09/07/17 08:00 97.2 103 16 99/73 (82) 96 09/07/17 05:02 97.4 67 16 130/93 (105) 99 09/07/17 04:00 71 09/06/17 23:55 97.0 71 16 131/90 (104) 100 09/06/17 21:15 98.2 81 18 113/70 (84) 99 09/06/17 20:00 92 09/06/17 16:00 98 09/06/17 16:00 97.6 83 18 100/68 (79) 95 09/06/17 12:00 89 09/06/17 12:00 97.6 95 16 92/63 (73) 99 I/O 09/06/17 09/06/17 09/06/17 09/07/17 09/07/17 09/07/17 07:00 15:00 23:00 07:00 15:00 23:00 Intake Total 220 ml 100 ml 900 ml 480 ml Balance 220 ml 100 ml 900 ml 480 ml Intake Oral 220 ml 480 ml IV Total 100 ml 900 ml # Voids 4 4 # Bowel Movements 1 2 Result Diagram: 09/03/17 1248 09/05/17 0920 Imaging Last Impressions Wrist X-Ray 09/03/17 0000 Signed Impressions: Service Date/Time: Sunday, September 03, 2017 08:32 - CONCLUSION: Unremarkable examination of the right wrist. Santi Ryan MD Chest X-Ray 09/03/17 0000 Signed Impressions: Service Date/Time: Sunday, September 03, 2017 10:51 - CONCLUSION: Interval improvement in left lung infiltrate with mild to moderate residual. Will Flynn MD Abdomen/Pelvis CT 08/21/17 0000 Signed Impressions: Service Date/Time: Monday, August 21, 2017 06:57 - CONCLUSION: 1. Right middle lobe pneumonia with infiltrates right lower lobe and lingula as well. 2. Thickening of the transverse colon wall could be technical, however colitis is not excluded. Fernando Euceda MD Objective Remarks anicteric no JVD no rales, no wheezes irregular rhythm abdomen soft, nontender extremities no edema, neuro exam- non focal Procedures Colonoscopy 08/22 A/P Problem List: (1) Leukocytosis ICD Code: D72.829 - Elevated white blood cell count, unspecified Status: Acute (2) Diarrhea ICD Code: R19.7 - Diarrhea, unspecified Status: Acute (3) Hypokalemia ICD Code: E87.6 - Hypokalemia Status: Acute (4) Hyponatremia ICD Code: E87.1 - Hypo-osmolality and hyponatremia Status: Acute (5) Severe sepsis ICD Code: A41.9 - Sepsis, unspecified organism; R65.20 - Severe sepsis without septic shock (6) Lactic acidosis ICD Code: E87.2 - Acidosis (7) Acute diverticulitis ICD Code: K57.92 - Diverticulitis of intestine, part unspecified, without perforation or abscess without bleeding (8) Pneumonia ICD Code: J18.9 - Pneumonia, unspecified organism (9) Alcohol withdrawal ICD Code: F10.239 - Alcohol dependence with withdrawal, unspecified (10) Hypomagnesemia ICD Code: E83.42 - Hypomagnesemia Assessment and Plan 47 years old female 1. Severe sepsis, lactic acidosis: Secondary to acute diverticulitis/ PNA - S/P Levaquin and Flagyl Appreciate infectious disease recommendations.HR. BP improved. continue on Augmentin till 09/08 2. Acute diverticulitis: Appreciate GI recommendations. Status post colonoscopy biopsy showed tubular adenoma. Diarrhea improved. Continue Asacol, Lomotil, Creon, cholestyramine, Xifaxan S/P Flagyl, Levaquin 3. Pneumonia: Continue supplemental oxygen. po aumgentin till 09/08. decrease prednisone to 20 mg daily 4. Electrolyte abnormalities: Hypokalemia, hyponatremia, hypomagnesemia. resolved 5. Tachycardia- IMproved likely secodnary to DTs . Decrease 25 po bid with holding parameter, thiamine folic acid and CIWA protocol 6. Alcohol withdrawal: Continue CIWA protocol. Continue Librium. Seizure precautions.- Taper Librium bid . counselled and encouraged 7. Hypoglycemia: Secondary to decreased oral intake. Monitor Accu-checks. Improved 8. Anemia: Likely dilutional component in addition to bone marrow suppression secondary to alcohol abuse. H/H stable. 9. DVT prophylaxis: SCDs, Lovenox. 10. Agitation, anxiety:- Improved Appreciate Psychiatry recommendations. 11. Deconditioning from ETOH- PT/OT daily- independently ambulating Discharge Planning CM consult for OP referral ff up with a PCP Problem Qualifiers (1) Leukocytosis: Qualified Codes: D72.829 - Elevated white blood cell count, unspecified (2) Diarrhea: Qualified Codes: R19.7 - Diarrhea, unspecified Salinas Christine MD Sep 07, 2017 10:36
[2017-09-07] MEDS ORDERED: Amoxicil-Clavulanate PO (10:40)
[2017-09-07] MEDS ORDERED: PRED5TAB PO (10:45)
--- NOTE | 2017-09-07 10:51 | HHI.DS ---
Discharge Summary Admission Date Aug 20, 2017 at 20:35 Discharge Date: Sep 07, 2017 Admitting Diagnosis Severe hypokalemia, hyponatremia (1) Leukocytosis ICD Code: D72.829 - Elevated white blood cell count, unspecified Status: Acute (2) Diarrhea ICD Code: R19.7 - Diarrhea, unspecified Status: Acute (3) Hypokalemia ICD Code: E87.6 - Hypokalemia Status: Acute (4) Hyponatremia ICD Code: E87.1 - Hypo-osmolality and hyponatremia Status: Acute (5) Severe sepsis ICD Code: A41.9 - Sepsis, unspecified organism; R65.20 - Severe sepsis without septic shock (6) Lactic acidosis ICD Code: E87.2 - Acidosis (7) Acute diverticulitis ICD Code: K57.92 - Diverticulitis of intestine, part unspecified, without perforation or abscess without bleeding (8) Pneumonia ICD Code: J18.9 - Pneumonia, unspecified organism (9) Alcohol withdrawal ICD Code: F10.239 - Alcohol dependence with withdrawal, unspecified (10) Hypomagnesemia ICD Code: E83.42 - Hypomagnesemia Procedures Colonoscopy 08/22 Brief History - From Admission 47 y/o depression and alcohol abuse was sent to the ED by her PCP at [facility] for tachycardia and was dropped off by her boyfriend. Patient is alert and oriented to self and place but does not know the year. She states she has been having Diarrhea 10-20 times day, foul smelling, and no recent use of antibiotics, and with associated cramping for the past 2 weeks. Prior to that she did have the flu. Patient admits to drinking alcohol every day but will not state how much she drinks. She states she has been trying to drink ensure and Gatorade but does not eat much. She denies any associated chest pain , sob, fevers or chills. Denies any heart palpitations. Discussed with patient's brother who is at the bedside, and is concerned. He states she drinks several 24oz beers and fireball daily, and does not eat well. She currently lives with her boyfriend. CBC/BMP: 09/03/17 1248 09/05/17 0920 Significant Findings Laboratory Tests Test 09/05/17 09:20 Blood Urea Nitrogen 4 MG/DL (7-18) Creatinine 0.40 MG/DL (0.50-1.00) Random Glucose 59 MG/DL (74-106) Chloride Level 112 MEQ/L (98-107) Carbon Dioxide Level 16.9 MEQ/L (21.0-32.0) PE at Discharge anicteric no JVD no rales, no wheezes irregular rhythm abdomen soft, nontender extremities no edema, neuro exam- non focal Pt Condition on Discharge: Fair Discharge Disposition: Discharge to SNF Discharge Instructions DIET: Follow Instructions for: Heart Healthy Diet, Diabetic Diet Speech Therapy-Diet Recommends: Regular Activities you can perform: See Additionl Instruction Other Activity Instructions: PT New Medications: Prednisone (Prednisone) 5 Mg Tab 5 MG PO DAILY for COPD, #15 TAB 0 Refills 3 tabs daily for 2 days then 2 tabs daily for 3 days then 1 tab daily for 3 days then DC Walker with Front Wheels (Walker with Front Wheels) 1 Mis Mis EA .XX DIRECTED for Deconditioning, #1 0 Refills Chlordiazepoxide HCl (Chlordiazepoxide HCl) 25 Mg Capsule 25 MG PO BID for ETOH, #7 TAB 1 tab po bid x 2 days then 1 tab po daily for 3 days then DC Cholestyramine (Cholestyramine) 4 Gm/Pkt Powd 4 GM PO TID for gi, #90 TAB 1 packet contains 4 grams of cholestyramine. Mesalamine DR (Mesalamine DR) 800 Mg Tab 1600 MG PO Q8HR for gi, #90 TAB Oxycodone (Oxycodone) 5 Mg Tab 5 MG PO Q4H PRN for pain 3-10, #5 TAB Pancrelipase (Creon) 24,000-76,000-120,000 Units Cap 2 CAP PO TID for gi, #90 CAP Rifaximin (Xifaxan) 550 Mg Tab 550 MG PO BID for gi, #60 TAB Thiamine HCl (Gnp Vitamin B-1) 100 Mg Tab 100 MG PO DAILY for ETOH for 30 Days, #30 TAB [Amoxicil-Clavulanate] () 500 MG TAB 500 MG PO Q8HR for Infection, #5 TAB Continued Medications: Sertraline (Zoloft) 50 Mg Tab 50 MG PO DAILY, #30 TAB 0 Refills Salinas Christine MD Sep 07, 2017 10:51
[2017-09-07] MEDS ORDERED: CHLO25CA9 PO (10:54)
[2017-09-07 11:52] LABS: CERULOPLASMIN 26 mg/dL (18-53)
[2017-09-07 12:00] VITALS: BP 94/73; PULSE 115; PULSE 96; RESP 16; TEMP 97.3; O2SAT 98
[2017-09-07] MEDS: ENOXAPARIN SODIUM 30 MG/0.3 ML SYRINGE SQ SCH (12:00)
[2017-09-07] MEDS ORDERED: THIA100 PO (13:21)
== END 2017-09-07 14:49 | disposition home health service (06) | DRG 871 ==
LOC: NEPE 16:53 → NEDA 20:35 → NEDH 08-21 06:06 → HIMN 08-21 11:00 → N04B 08-31 19:02
PROVIDERS: ADMIT Internal Medicine; ATTEND Internal Medicine
PROC: 0DBH8ZX Excision of Cecum, Via Natural or Artificial Opening Endoscopic, Diagnostic (ICD-10-PCS; 2017-08-22)
PROC: 0DBK8ZX Excision of Ascending Colon, Via Natural or Artificial Opening Endoscopic, Diagnostic (ICD-10-PCS; principal; 2017-08-22 10:02)
DX: A41.9 Sepsis, unspecified organism (principal); J18.9 Pneumonia, unspecified organism; E87.2 Acidosis; F10.231 Alcohol dependence with withdrawal delirium; K57.32 Diverticulitis of large intestine without perforation or abscess without bleeding; E87.1 Hypo-osmolality and hyponatremia; E87.8 Other disorders of electrolyte and fluid balance, not elsewhere classified; E86.0 Dehydration; E87.6 Hypokalemia; R65.20 Severe sepsis without septic shock; E83.42 Hypomagnesemia; E16.2 Hypoglycemia, unspecified; D64.9 Anemia, unspecified; R00.0 Tachycardia, unspecified; Y90.8 Blood alcohol level of 240 mg/100 ml or more; F17.210 Nicotine dependence, cigarettes, uncomplicated; D12.2 Benign neoplasm of ascending colon; K52.9 Noninfective gastroenteritis and colitis, unspecified; F32.9 Major depressive disorder, single episode, unspecified
CPT/HCPCS: 71045; 71046; 73110; 74177; 76937; 80048; 80053; 80074; 80076; 80307; 81001; 82103; 82390; 82550; 82552; 82728; 82948; 83520; 83540; 83550; 83605; 83735; 83935; 84100; 84132; 84155; 84439; 84443; 84484; 85007; 85025; 85027; 85610; 85730; 86038; 86255; 87040; 87070; 87102; 87205; 87206; 87328; 87329; 87493; 87506; 87641; 88305; 93005; 94150; 94640; 94664; 96365; 96375; J0610; J0692; J1630; J1650; J1956; J2060; J2543; J2920; J3370; J3411; J3475; J3480; J7030; J7042; J7050; J7512; Q9963; Q9967

== ENCOUNTER 2017-09-17 14:46 | Emergency (ER) | payer MEDICAID ==
[~2017-09-17] VITALS: Ht 172.7 cm; Wt 54.1 kg
[~2017-09-17 14:46] MED LIST changes: +Amoxicil-Clavulanate PO; +CHLO25CA9 PO; +CHOL4POW4 PO; +CREON24 PO; +MESA1TAB2 PO; +PRED5TAB PO; -PYRI200T4 PO; -SULF1TAB47 PO; +THIA100 PO; +WALKER WHEELS/F1 MIS; +XIFA550T4 PO; +ZOLO50TA PO
[2017-09-17 15:19] VITALS: BP 114/72; PULSE 120; RESP 20; TEMP 100.1; O2SAT 98
--- NOTE | 2017-09-17 15:48 | RADRPT ---
EXAM DATE/TIME: 09/17/2017 15:41 [facility] COMPARISON: CHEST PA & LAT, August 20, 2017, 17:37. INDICATIONS : Palpitations. High pulse rate. MEDICAL HISTORY : Smoker. SURGICAL HISTORY : None. ENCOUNTER: Initial ACUITY: 1 day PAIN SCORE: 0/10 LOCATION: Bilateral chest FINDINGS: PA and lateral views of the chest demonstrate the lungs to be symmetrically aerated without evidence of mass, infiltrate or effusion. The cardiomediastinal contours are unremarkable. Osseous structure s are intact. CONCLUSION: No acute disease. Semaj Chaudhary MD FACR on September 17, 2017 at 15:45 Board Certified Radiologist. This report was verified electronically.
[2017-09-17 16:47] LABS: AUTOMATED NEUTROPHIL # 4.5 TH/MM3 (1.8-7.7); BASOPHIL % 0.7 % (0.0-2.0); EOSINOPHIL # 0.3 TH/MM3 (0-0.4); EOSINOPHIL % 4.4 % (0.0-4.0); HEMATOCRIT 34.7 % (35.0-46.0); HEMOGLOBIN 11.7 GM/DL (11.6-15.3); LYMPH % 17.3 % (9.0-44.0); LYMPHOCYTE # 1.2 TH/MM3 (1.0-4.8); MEAN CELL VOLUME 104.9 FL (80.0-100.0); MEAN CORPUSCULAR HEMOGLOBIN 35.3 PG (27.0-34.0); MEAN CORPUSCULAR HGB CONC 33.7 % (32.0-36.0); MEAN PLATELET VOLUME 8.2 FL (7.0-11.0); MONO % 10.1 % (0.0-8.0); MONOCYTE # 0.7 TH/MM3 (0-0.9); NEUT % 67.5 % (16.0-70.0); PLATELET COUNT 276 TH/MM3 (150-450); RED BLOOD COUNT 3.31 MIL/MM3 (4.00-5.30); RED CELL DISTRIBUTION WIDTH 14.2 % (11.6-17.2); WHITE BLOOD COUNT 6.7 TH/MM3 (4.0-11.0)
[2017-09-17 17:09] LABS: INTERNATIONAL NORMALIZED RATIO 1.1 RATIO; PROTHROMBIN TIME - PATIENT 11.4 SEC (9.8-11.6)
[2017-09-17 17:10] LABS: ALBUMIN 2.9 GM/DL (3.4-5.0); ALT (GPT) 24 U/L (10-53); AST (GOT) 26 U/L (15-37); BICARBONATE 25.9 MEQ/L (21.0-32.0); BLOOD UREA NITROGEN 3 MG/DL (7-18); CALCIUM 8.4 MG/DL (8.5-10.1); CHLORIDE 104 MEQ/L (98-107); CREATININE 0.52 MG/DL (0.50-1.00); GLOMERULAR FILTRATION RATE 126 ML/MIN (>89); GLUCOSE,RANDOM 94 MG/DL (74-106); MAGNESIUM 1.6 MG/DL (1.5-2.5); SODIUM (NA) 139 MEQ/L (136-145)
[2017-09-17 17:14] LABS: ALKALINE PHOSPHATASE 116 U/L (45-117); TOTAL BILIRUBIN ADULT 0.3 MG/DL (0.2-1.0); TOTAL PROTEIN 6.8 GM/DL (6.4-8.2); TROPONIN I LESS THAN 0.02 NG/ML (0.02-0.05)
[2017-09-17] MEDS ORDERED: SODIUM CHLOR 0.9% 1000 ML INJ 1,000 ML IV SCH (18:46)
[2017-09-17 18:53] VITALS: BP 114/83; PULSE 104; RESP 18; O2SAT 99
[2017-09-17] MEDS ORDERED: ACETAMINOPHEN 325 MG TAB PO ONE (19:00)
--- NOTE | 2017-09-17 19:03 | PD ---
HPI Chief Complaint: Cardiac Complaint Time Seen by Provider: 18:46 Travel History International Travel<30 days: No Contact w/Intl Traveler<30days: No Traveled to known affect area: No History of Present Illness HPI 47-year-old female was sent here by her primary care physician for evaluation of elevated heart rate. Reportedly she went into her primary care physician's office this morning for routine check and her heart rate was noted to be 120. She also had a temperature of 101. She reports that she feels well. She has been having mild left-sided abdominal pain for the past 2 days. She reports increased urinary frequency for several days. She denies cough, congestion, sore throat, rash, nausea, vomiting, diarrhea, constipation, dysuria, flank pain. It appears that she was admitted on August 20 for evaluation of severe sepsis, hypokalemia, hyponatremia, pneumonia, diverticulitis. PFSH Past Medical History Asthma: Yes Anxiety: Yes Heart Rhythm Problems: Yes (INCREASED HEART RATE) Cardiovascular Problems: Yes Diminished Hearing: No Endocrine: Yes Gastrointestinal Disorders: Yes Genitourinary: No Hypertension: Yes Musculoskeletal: No Neurologic: Yes Reproductive: No Respiratory: Yes Immunizations Current: Yes Thyroid Disease: Yes ?: Unknown Para: 1 Past Surgical History Surgical History: No Previous Surgery Social History Alcohol Use: Yes (PT IS AN ALCOHOLIC) Tobacco Use: Yes (-06/12 PPD) Substance Use: Yes Allergies-Medications (Allergen,Severity, Reaction): Coded Allergies: No Known Allergies (Verified Allergy, Unknown, 08/20/17) Reported Meds & Prescriptions Reported Meds & Active Scripts Active Gnp Vitamin B-1 (Thiamine HCl) 100 Mg Tab 100 Mg PO DAILY 30 Days Chlordiazepoxide HCl 25 Mg Capsule 25 Mg PO BID 1 tab po bid x 2 days then 1 tab po daily for 3 days then DC Prednisone 5 Mg Tab 5 Mg PO DAILY 3 tabs daily for 2 days then 2 tabs daily for 3 days then 1 tab daily for 3 days then DC [Amoxicil-Clavulanate] 500 MG Tab 500 Mg PO Q8HR Walker with Front Wheels (Device) 1 Mis Mis Ea .XX DIRECTED Mesalamine DR (Mesalamine) 800 Mg Tab 1,600 Mg PO Q8HR Creon (Amylase/Lipase/Protease) 24,000-76,000-120,000 Units Cap 2 Cap PO TID Cholestyramine 4 Gm/Pkt Powd 4 Gm PO TID 1 packet contains 4 grams of cholestyramine. Xifaxan (Rifaximin) 550 Mg Tab 550 Mg PO BID Reported Zoloft (Sertraline HCl) 50 Mg Tab 50 Mg PO DAILY Review of Systems Except as stated in HPI: all other systems reviewed are Neg Physical Exam Narrative GENERAL: Well-developed well-nourished female in no acute distress. Heart rate is 100. SKIN: Warm and dry. HEAD: Atraumatic. Normocephalic. EYES: Pupils equal and round. No scleral icterus. No injection or drainage. ENT: No nasal bleeding or discharge. Mucous membranes pink and moist. NECK: Trachea midline. No JVD. CARDIOVASCULAR: Regular rate and rhythm. No murmur appreciated. RESPIRATORY: No accessory muscle use. Clear to auscultation. Breath sounds equal bilaterally. GASTROINTESTINAL: Abdomen soft, mild left-sided tenderness to palpation without guarding. MUSCULOSKELETAL: No obvious deformities. No clubbing. No cyanosis. No edema. NEUROLOGICAL: Awake and alert. No obvious cranial nerve deficits. Motor grossly within normal limits. Normal speech. PSYCHIATRIC: Appropriate mood and affect; insight and judgment normal. Data Data Last Documented VS Vital Signs Date Time Temp Pulse Resp B/P (MAP) Pulse Ox O2 Delivery O2 Flow Rate FiO2 09/17/17 20:15 98.5 87 18 118/86 (97) 98 Room Air Orders Orders Electrocardiogram (09/17/17 15:21) Ckmb (Isoenzyme) Profile (09/17/17 15:21) Complete Blood Count With Diff (09/17/17 15:21) Comprehensive Metabolic Panel (09/17/17 15:21) Magnesium (Mg) (09/17/17 15:21) Prothrombin Time / Inr (Pt) (09/17/17 15:21) Act Partial Throm Time (Ptt) (09/17/17 15:21) Troponin I (09/17/17 15:21) Chest, Pa & Lat (09/17/17 15:21) Influenzae A/B Antigen (09/17/17 15:21) Urinalysis - C+S If Indicated (09/17/17 15:21) Lipase (09/17/17 15:23) Sodium Chlor 0.9% 1000 Ml Inj (Ns 1000 M (09/17/17 18:46) Ct Abd/Pel W Iv Contrast(Rout) (09/17/17 18:58) Acetaminophen (Tylenol) (09/17/17 19:00) Iohexol 350 Inj (Omnipaque 350 Inj) (09/17/17 20:28) Ed Discharge Order (09/17/17 21:21) Labs Laboratory Tests Test 09/17/17 16:10 09/17/17 20:10 White Blood Count 6.7 TH/MM3 Red Blood Count 3.31 MIL/MM3 Hemoglobin 11.7 GM/DL Hematocrit 34.7 % Mean Corpuscular Volume 104.9 FL Mean Corpuscular Hemoglobin 35.3 PG Mean Corpuscular Hemoglobin Concent 33.7 % Red Cell Distribution Width 14.2 % Platelet Count 276 TH/MM3 Mean Platelet Volume 8.2 FL Neutrophils (%) (Auto) 67.5 % Lymphocytes (%) (Auto) 17.3 % Monocytes (%) (Auto) 10.1 % Eosinophils (%) (Auto) 4.4 % Basophils (%) (Auto) 0.7 % Neutrophils # (Auto) 4.5 TH/MM3 Lymphocytes # (Auto) 1.2 TH/MM3 Monocytes # (Auto) 0.7 TH/MM3 Eosinophils # (Auto) 0.3 TH/MM3 Basophils # (Auto) 0.0 TH/MM3 CBC Comment DIFF FINAL Differential Comment Prothrombin Time 11.4 SEC Prothromb Time International Ratio 1.1 RATIO Activated Partial Thromboplast Time 27.7 SEC Blood Urea Nitrogen 3 MG/DL Creatinine 0.52 MG/DL Random Glucose 94 MG/DL Total Protein 6.8 GM/DL Albumin 2.9 GM/DL Calcium Level 8.4 MG/DL Magnesium Level 1.6 MG/DL Alkaline Phosphatase 116 U/L Aspartate Amino Transf (AST/SGOT) 26 U/L Alanine Aminotransferase (ALT/SGPT) 24 U/L Total Bilirubin 0.3 MG/DL Sodium Level 139 MEQ/L Potassium Level 3.6 MEQ/L Chloride Level 104 MEQ/L Carbon Dioxide Level 25.9 MEQ/L Anion Gap 9 MEQ/L Estimat Glomerular Filtration Rate 126 ML/MIN Total Creatine Kinase 32 U/L Troponin I LESS THAN 0.02 NG/ML Lipase 389 U/L Urine Color LIGHT-YELLOW Urine Turbidity CLEAR Urine pH 6.0 Urine Specific [place] 1.004 Urine Protein NEG mg/dL Urine Glucose (UA) NEG mg/dL Urine Ketones NEG mg/dL Urine Occult Blood NEG Urine Nitrite NEG Urine Bilirubin NEG Urine Urobilinogen LESS THAN 2.0 MG/DL Urine Leukocyte Esterase NEG Urine RBC 1 /hpf Urine WBC LESS THAN 1 /hpf Urine Squamous Epithelial Cells 1 /hpf Urine Amorphous Sediment RARE Microscopic Urinalysis Comment CULT NOT INDICATED MDM Medical Decision Making Medical Screen Exam Complete: Yes Emergency Medical Condition: Yes Medical Record Reviewed: Yes Differential Diagnosis Diverticulitis, colitis, electrolyte abnormality, pneumonia, bacteremia, viral syndrome Narrative Course The patient was placed on ECG monitoring pulse oximetry. A 12-lead EKG was obtained revealing sinus tachycardia with rate in the low 100s. Lab work, chest x-ray obtained in triage. CBC is unremarkable. CMP is unremarkable. Lipase is normal. Cardiac enzymes are negative. Chest x-ray is normal. Influenza antigen is negative. CT abdomen and pelvis has been ordered. Urinalysis is pending. She will be given Tylenol and IV fluids. CT abdomen and pelvis reveals CONCLUSION: 1. 3 cm left rectus hematoma. 2. No acute findings within the abdomen and pelvis. Near-complete resolution of previous basilar air space disease in the lungs. The patient was receiving Lovenox injections during her hospitalization August and this is likely the etiology of the left rectus hematoma. She has no cutaneous findings, no erythema or ecchymosis. Her temperature and pulse normalized during her hospital stay. At this point in time the plan will be to discharge her follow-up with a primary care physician. Discussed signs and symptoms that would warrant returning to the emergency room. Blood cultures are pending. She is stable for discharge. Diagnosis Primary Impression: Fever Additional Instructions: Stay well hydrated and well-nourished. Follow-up with primary care physician as needed and return for any acutely new or worsening symptoms. Med/Other Pt SpecificInfo: No Change to Meds Disposition: 01 DISCHARGE HOME Condition: Stable Niko Qiu Sep 17, 2017 19:03
--- NOTE | 2017-09-17 19:56 | PD ---
Physical Exam Narrative General: The patient is a well-developed well-nourished female in no acute distress. Head and Neck exam: Head is normocephalic atraumatic. Eyes: EOMI, pupils are equal round and reactive to light. Nose: Midline septum with pink mucous membranes Mouth: Dentition unremarkable. Moist mucus membranes. Posterior oropharynx is not erythematous. No tonsillar hypertrophy. Uvula midline. Airway patent. Neck: No palpable lymphadenopathy. No nuchal rigidity. No thyromegaly. Cardiovascular: Regular rate and rhythm without murmurs, gallops, or rubs. No pulse deficit to the extremities on simultaneous auscultation and palpation of her radial artery. Lungs: Clear to auscultation bilaterally. No wheezes, rhonchi, or rales. Abdomen: Soft, with reported tenderness on deep palpation of the left side of the abdomen between the upper and lower quadrant. No other tenderness on palpation of the other quadrants of the abdomen. No guarding, rebound, or rigidity. Normal bowel sounds are audible. No tenderness on palpation of McBurney's point. Negative Ya sign. Extremities: No clubbing, cyanosis, or edema. 2+ pulses in all 4 extremities. Back: No costovertebral angle tenderness to palpation. Neurologic Exam: Grossly nonfocal Skin Exam: No rash noted. Intact skin that is warm and dry. Data Data Last Documented VS Vital Signs Date Time Temp Pulse Resp B/P (MAP) Pulse Ox O2 Delivery O2 Flow Rate FiO2 09/17/17 21:45 86 18 115/82 (93) 98 09/17/17 20:15 98.5 Room Air Orders Orders Electrocardiogram (09/17/17 15:21) Ckmb (Isoenzyme) Profile (09/17/17 15:21) Complete Blood Count With Diff (09/17/17 15:21) Comprehensive Metabolic Panel (09/17/17 15:21) Magnesium (Mg) (09/17/17 15:21) Prothrombin Time / Inr (Pt) (09/17/17 15:21) Act Partial Throm Time (Ptt) (09/17/17 15:21) Troponin I (09/17/17 15:21) Chest, Pa & Lat (09/17/17 15:21) Influenzae A/B Antigen (09/17/17 15:21) Urinalysis - C+S If Indicated (09/17/17 15:21) Lipase (09/17/17 15:23) Sodium Chlor 0.9% 1000 Ml Inj (Ns 1000 M (09/17/17 18:46) Ct Abd/Pel W Iv Contrast(Rout) (09/17/17 18:58) Acetaminophen (Tylenol) (09/17/17 19:00) Iohexol 350 Inj (Omnipaque 350 Inj) (09/17/17 20:28) Ed Discharge Order (09/17/17 21:21) Labs Laboratory Tests Test 09/17/17 16:10 09/17/17 20:10 White Blood Count 6.7 TH/MM3 Red Blood Count 3.31 MIL/MM3 Hemoglobin 11.7 GM/DL Hematocrit 34.7 % Mean Corpuscular Volume 104.9 FL Mean Corpuscular Hemoglobin 35.3 PG Mean Corpuscular Hemoglobin Concent 33.7 % Red Cell Distribution Width 14.2 % Platelet Count 276 TH/MM3 Mean Platelet Volume 8.2 FL Neutrophils (%) (Auto) 67.5 % Lymphocytes (%) (Auto) 17.3 % Monocytes (%) (Auto) 10.1 % Eosinophils (%) (Auto) 4.4 % Basophils (%) (Auto) 0.7 % Neutrophils # (Auto) 4.5 TH/MM3 Lymphocytes # (Auto) 1.2 TH/MM3 Monocytes # (Auto) 0.7 TH/MM3 Eosinophils # (Auto) 0.3 TH/MM3 Basophils # (Auto) 0.0 TH/MM3 CBC Comment DIFF FINAL Differential Comment Prothrombin Time 11.4 SEC Prothromb Time International Ratio 1.1 RATIO Activated Partial Thromboplast Time 27.7 SEC Blood Urea Nitrogen 3 MG/DL Creatinine 0.52 MG/DL Random Glucose 94 MG/DL Total Protein 6.8 GM/DL Albumin 2.9 GM/DL Calcium Level 8.4 MG/DL Magnesium Level 1.6 MG/DL Alkaline Phosphatase 116 U/L Aspartate Amino Transf (AST/SGOT) 26 U/L Alanine Aminotransferase (ALT/SGPT) 24 U/L Total Bilirubin 0.3 MG/DL Sodium Level 139 MEQ/L Potassium Level 3.6 MEQ/L Chloride Level 104 MEQ/L Carbon Dioxide Level 25.9 MEQ/L Anion Gap 9 MEQ/L Estimat Glomerular Filtration Rate 126 ML/MIN Total Creatine Kinase 32 U/L Troponin I LESS THAN 0.02 NG/ML Lipase 389 U/L Urine Color LIGHT-YELLOW Urine Turbidity CLEAR Urine pH 6.0 Urine Specific [place] 1.004 Urine Protein NEG mg/dL Urine Glucose (UA) NEG mg/dL Urine Ketones NEG mg/dL Urine Occult Blood NEG Urine Nitrite NEG Urine Bilirubin NEG Urine Urobilinogen LESS THAN 2.0 MG/DL Urine Leukocyte Esterase NEG Urine RBC 1 /hpf Urine WBC LESS THAN 1 /hpf Urine Squamous Epithelial Cells 1 /hpf Urine Amorphous Sediment RARE Microscopic Urinalysis Comment CULT NOT INDICATED MDM Medical Record Reviewed: Yes Supervised Visit with MICHEAL: Yes Interpretation(s) Last Impressions Abdomen/Pelvis CT 09/17/17 1858 Signed Impressions: Service Date/Time: Sunday, September 17, 2017 20:24 - CONCLUSION: 1. 3 cm left rectus hematoma. 2. No acute findings within the abdomen and pelvis. Near-complete resolution of previous basilar air space disease in the lungs. Eleno Ag MD Chest X-Ray 09/17/17 1521 Signed Impressions: Service Date/Time: Sunday, September 17, 2017 15:41 - CONCLUSION: No acute disease. Semaj Chaudhary MD FACR Narrative Course I, Dr. Carreon, have reviewed the advance practice practitioner's documentation and am in agreement, met with the patient face to face, made the diagnosis, and the medical decision making was done by me. The patient was initially evaluated by [facility]. Please see their complete history and physical. *My assessment and Findings: The patient presents with a history of going to her primary care physician in follow-up of a recent hospital admission when she was noted to have a fever and sinus tachycardia. She was sent to the emergency department for evaluation. The patient reports that she did complete her course of antibiotic that she was prescribed after an admission for possible colitis and pneumonia. The patient reports that the other medications that she was discharged home with were discontinued when she ran out of the prescription. She reports that she has not had any alcohol since her admission in August. During the course of the patient's emergency department visit, the patient's history, examination, and differential diagnosis were reviewed with the patient. The patient was placed on a conveyor monitor with oximetry and frequent blood pressure monitoring. The patient had IV access obtained and blood work sent for analysis. The patient was initially provided normal saline 1 L IV fluid bolus, acetaminophen 650 p.o. 1 The patient's laboratory studies were reviewed and remarkable for a white count of 6.7, hemoglobin 11.7, platelets 276 with 10.1 monocytes, MCV is 104.9. CMP is remarkable for a BUN of 3, calcium 8.4, cardiac enzymes within normal limits , lipase 389, PT 11.4, PTT 27.7. Radiology studies were reviewed and remarkable for a chest x-ray that shows no acute cardiopulmonary disease. CT scan of the abdomen and pelvis shows showed a 3 cm left rectus hematoma, no other acute findings. The patient is resting comfortably and feels better, is alert and in no distress. The patient's results and examination findings were discussed with the patient. The repeat examination is unremarkable and benign. The history, exam, diagnostic testing, and current condition do not suggest any significant pathology to warrant further testing, continued ED treatment, admission, or surgical evaluation at this point. The vital signs have been stable. The patient does not have uncontrollable pain, intractable vomiting, or other significant symptoms. The patient's condition is stable and appropriate for discharge. The patient will pursue further outpatient evaluation with a primary care physician or other designated or consulting physician as indicated in the discharge instructions. The patient expressed understanding and was agreeable with this plan. Stephania Carreon MD Sep 17, 2017 19:56
--- NOTE | 2017-09-17 20:13 | EKG ---
Date Performed: 09/17/2017 Time Performed: 15:55:30 PTAGE: 47 years EKG: SINUS TACHYCARDIA POSSIBLE LEFT ATRIAL ENLARGEMENT ABNORMAL RHYTHM ECG No significant kyle e from prior electrocardiogram. PREVIOUS TRACING : 09/05/2017 16.48 DOCTOR: Servando Herr Interpretating Date/Time 09/17/2017 20:11:22
[2017-09-17 20:15] VITALS: BP 118/86; PULSE 87; RESP 18; TEMP 98.5; O2SAT 98
[2017-09-17] MEDS ORDERED: IOHEXOL 350 MG/ML 10 ML VIAL (for RAD DIAG) IVCONTRAST ONE (20:28)
[2017-09-17 20:40] LABS: AMORPHOUS SEDIMENT, URINE RARE; BILIRUBIN, URINE NEG (NEG); BLOOD, URINE NEG (NEG); GLUCOSE,URINE NEG (NEG); KETONE, URINE NEG (NEG); NITRITE,URINE NEG (NEG); SQUAMOUS EPITHELIAL CELL URINE 1 /hpf (0-5); URINE COLOR LIGHT-YELLOW (YELLW/STRAW); URINE LEUKOCYTE ESTERASE NEG (NEG)
--- NOTE | 2017-09-17 20:52 | RADRPT ---
EXAM DATE/TIME: 09/17/2017 20:24 [facility] COMPARISON: No previous studies available for comparison. INDICATIONS : Abdomen pain. IV CONTRAST: 100 cc Omnipaque 350 (iohexol) IV ORAL CONTRAST: No oral contrast ingested. RADIATION DOSE: 6.62 CTDIvol (mGy) MEDICAL HISTORY : Cardiovascular disease. Hypertension. SURGICAL HISTORY : None. ENCOUNTER: Initial ACUITY: 1 day PAIN SCALE: 5/10 LOCATION: Bilateral abdomen TECHNIQUE: Volumetric scanning of the abdomen and pelvis was performed. Using automated exposure control and ad justment of the mA and/or kV according to patient size, radiation dose was kept as low as reasonably achievable to obtain optimal diagnostic quality images. DICOM format image data is available electro nically for review and comparison. FINDINGS: Compare August 21, 2017. Previous basilar airspace disease has nearly completely resolved. Healing lef t lower rib fracture. On today's exam there is a new 3 cm x 1.8 cm mass in the left rectus muscle most characteristic of a small rectus hematoma which has developed over the last month. No acute findings in the liver, spleen, adrenals, kidneys or pancreas. No calcified gallstones or fern iary ductal dilatation. No pelvic masses or free fluid. No adenopathy. CONCLUSION: 1. 3 cm left rectus hematoma. 2. No acute findings within the abdomen and pelvis. Near-complete resolution of previous basilar air space disease in the lungs. Eleno Ag MD on September 17, 2017 at 20:45 Board Certified Radiologist. This report was verified electronically.
[2017-09-17 21:45] VITALS: BP 115/82
== END 2017-09-17 22:00 | disposition home or self-care (01) ==
LOC: NEPC 14:46
DX: R50.9 Fever, unspecified (principal); R10.9 Unspecified abdominal pain; R00.0 Tachycardia, unspecified; F17.200 Nicotine dependence, unspecified, uncomplicated
CPT/HCPCS: 71046; 74177; 80053; 81001; 82550; 83690; 83735; 84484; 85025; 85610; 85730; 87804; 93005; 99285; J7030; Q9967